=== PATIENT | female | born 1945 | race Caucasian/White ===

== ENCOUNTER 2021-03-21 13:03 | Inpatient (IN) ==
[2021-03-21] MEDS ORDERED: MORPHINE SULFATE INJ 2 MG INJ IVP ONE (14:29)
[2021-03-21] MEDS ORDERED: MORPHINE SULFATE INJ 2 MG INJ ONE (14:36)
--- NOTE | 2021-03-21 14:36 | ED.ABDFE ---
HPI Time Seen Time Seen by Provider: 03/21/21 14:24 PCP Primary Care Physician: DR BROWN HPI Comment HPI Comment: According to pt she was well before yesterday .experienced pain in the belly gradual in onset and slowly worsened to a point where its present all over the abdomen .pos nausea .has had no diarrhea or constipation has had no fever ro chills.no changes in medication or diet .no tenesmus. has had hx of diverticulitis in the past Complaint Doctors Chief Complaint Comments: abdominal pain Chief Complaint:: PT C/O CONSTANT GENERALIZED PAIN IN ABDOMEN SINCE YESTERDAY. PT STATES THAT PAIN IS WORSE WITH EATING. COVID-19 Coronavirus risk:travel/contact w/high risk person: No Has patient experienced Coronavirus symptoms: No Reviewed Nurses Notes Review: Yes Source History Provided: Patient Mode of arrival Mode of Arrival: Wheelchair Timing Onset of Chief Complaint: 03/21/21 Came on: Gradually Duration Since Onset: Constant Duration: Days Location Location: Diffuse Severity Severity: Moderate and Severe Quality Quality: Aching, Colicky and Sharp Context History of: None Modifying factors Worsening Factors: Exertion Improving Factors: Food Associated signs and symptoms Associated Signs and Symptoms: Nausea PMH PMH Past Medical History: Yes Past Medical History: Dyslipidemia and Hypertension Past Surgical History: Yes Surgical History: Hysterectomy, Ortho Surgery and Tonsillectomy Past Surgical History Comment: BREAST SURGERY X 2 Family History History of Family Medical Conditions: Yes Family Medical History: Cancer, Coronary Artery Disease and Hypertension Social History Does patient currently use any type of tobacco product: No Have you used tobacco products in the last 12 months: No Type of Tobacco Use: None Does any household member use tobacco: No Alcohol Use: Rarely Do you use any recreational Drugs:: No Lives With: Family Lives Where: Home Travel Risk Coronavirus risk:travel/contact w/high risk person: No Has patient experienced Coronavirus symptoms: No Infectious screening In the last 2 months have you had wt loss of >10#?: NO Have you had fever, night sweats or hemotysis?: No Have you traveled outside the country in the last 6 months?: No Isolation: Standard ROS Review of Systems Constitutional: No Symptoms Reported Eyes: No Symptoms Reported Respiratoy: No Symptoms Reported Cardiovascular: No Symptoms Reported Gastrointestinal/Abdominal: See HPI Genitourinary: No Symptoms Reported Neurological: No Symptoms Reported Musculoskeletal: No Symptoms Reported PE Vital Signs Vitals: Temperature 97.7 F Pulse Rate 75 Respiratory Rate 18 Blood Pressure 129/65 O2 Sat by Pulse Oximetry 96 General General Appearance: Anxious and In Distress Head Head Exam: Normal Inspection, Atraumatic and Normocephalic Eyes Eye exam: PERRL and EOMI ENT ENT Exam: Normal Oropharynx and Mucous Membranes Moist Neck Neck Exam: Full ROM Respiratory Respiratory Exam: Normal Lung Sounds Bilat Respiratory Exam: Bilateral: Clear to Auscultation Cardiovascular Cardiovascular Exam: +S1 and +S2 Abdominal Exam Abdominal Exam: Normal Bowel Sounds, Distention, Tenderness and Other (distended ) Abdominal Tenderness: Diffuse Neurologic Neurological Exam: Alert MDM Additional Information Obtained From Additional Findings:: acute abdominal pain Differential Diagnosis Differential Diagnosis- Considerations may include:: Diverticular disease, Gastroenteritis and Pancreatitis COURSE Treatment Treatment: labs and ct of the abdomen and pelvis, morphine IV ,DILAUDID spoke with surgery and Dr Cuevas .Agreed to admit under Dr Cuevas service and surgery be in consult ROR Labs Reviewed Laboratory Results Reviewed?: Yes Result Diagrams: 03/21/21 14:35 03/21/21 16:50 Laboratory: WBC 21.3 X10^3/uL (3.6-10.0) H 03/21/21 14:35 RBC 4.86 X10^6/uL (3.5-5.4) 03/21/21 14:35 Hgb 14.9 g/dL (12.0-16.0) 03/21/21 14:35 Hct 43.1 % (36.0-47.0) 03/21/21 14:35 MCV 88.7 fL (80.0-100.0) 03/21/21 14:35 MCH 30.6 pg (27.0-34.0) 03/21/21 14:35 MCHC 34.5 g/dL (33.0-35.0) 03/21/21 14:35 RDW 14.4 % (11.6-16.5) 03/21/21 14:35 Plt Count 236 X10^3/uL (150.0-450.0) 03/21/21 14:35 Plt Count Comment Adequate (ADEQUATE) 03/21/21 14:35 MPV 8.5 fL (7.4-11.0) 03/21/21 14:35 Neut % (Auto) 84.9 % (42.0-75.0) H 03/21/21 14:35 Lymph % (Auto) 8.3 % (21.0-51.0) L 03/21/21 14:35 [place] % (Auto) 6.0 % (0.0-13.0) 03/21/21 14:35 Eos % (Auto) 0.3 % (0.9-2.9) L 03/21/21 14:35 Baso % (Auto) 0.5 % (0.2-1.0) 03/21/21 14:35 Neut # (Auto) 18.1 x10^3/uL (2.2-4.8) H 03/21/21 14:35 Lymph # (Auto) 1.8 X10^3/uL (1.3-2.9) 03/21/21 14:35 [place] # (Auto) 1.3 x10^3/uL (0.3-0.8) H 03/21/21 14:35 Eos # (Auto) 0.1 x10^3/uL (0.0-0.2) 03/21/21 14:35 Baso # (Auto) 0.1 X10^3/uL (0.0-0.1) 03/21/21 14:35 Absolute Nucleated RBC 0.1 /100WBC 03/21/21 14:35 Total Counted 100 03/21/21 14:35 Neutrophils % (Manual) 78 % (39-76) H 03/21/21 14:35 Band Neutrophils % 3 % (0-10) 03/21/21 14:35 Lymphocytes % (Manual) 13 % (13-43) 03/21/21 14:35 Monocytes % (Manual) 6 % (4-9) 03/21/21 14:35 Atypical Lymphocytes Few A 03/21/21 14:35 Plt Morphology Comment Normal (NORMAL) 03/21/21 14:35 RBC Morphology Normal (NORMAL) 03/21/21 14:35 PT 14.4 SECONDS (11.8-14.3) 03/21/21 21:06 INR Target Range - 03/21/21 21:06 INR 1.17 (0.8-1.3) 03/21/21 21:06 APTT 30.3 SECONDS (22.9-36.5) 03/21/21 21:06 PTT Comment - 03/21/21 21:06 Sodium 137 mmol/L (136-145) 03/21/21 16:50 Corrected Sodium 137 mmol/L (136-145) 03/21/21 16:50 Potassium 3.4 mmol/L (3.5-5.1) L 03/21/21 16:50 Chloride 102 mmol/L (98-107) 03/21/21 16:50 Carbon Dioxide 25.7 mmol/L (21-32) 03/21/21 16:50 BUN 22 mg/dL (7-18) H 03/21/21 16:50 Creatinine 1.14 mg/dL (0.55-1.02) H 03/21/21 16:50 Est GFR (MDRD) Af Amer 60 (>60) 03/21/21 16:50 Est GFR (MDRD) Non-Af 49 (>60) L 03/21/21 16:50 Glucose 120 mg/dL (65-99) H 03/21/21 16:50 Calcium 8.9 mg/dL (8.5-10.1) 03/21/21 16:50 Corrected Calcium TNP 03/21/21 16:50 Total Bilirubin 1.10 mg/dL (0.2-1.0) H 03/21/21 16:50 AST 19 Units/L (15-37) 03/21/21 16:50 ALT 22 Units/L (12-78) 03/21/21 16:50 Alkaline Phosphatase 35 Units/L (46-116) L 03/21/21 16:50 Total Protein 6.4 g/dL (6.4-8.2) 03/21/21 16:50 Albumin 3.5 g/dL (3.4-5.0) 03/21/21 16:50 Globulin 2.9 g/dL (2.5-4.5) 03/21/21 16:50 Albumin/Globulin Ratio 1.2 Ratio (1.1-2.1) 03/21/21 16:50 Amylase 45 Units/L (25-115) 03/21/21 14:35 Lipase 59 Units/L (73-393) L 03/21/21 14:35 Other Results Comments: Ct OF ABDOMEN LOOPOF ILEUM WITH 1.3 CM CONTAINED PERFORATION Opioid Opioid Risk Tool Age (Je box if 16-45): No History of Preadolescent Sexual Abuse: No Total: 0 Total Score Risk Category: Low Risk Copyright: Eduardo HUSSEIN predicting aberrant behaviors Diagnosis Discharge Problem: Bowel perforation Leucocytosis Qualifiers: Leukocytosis type: other Qualified Code(s): D72.828 - Other elevated white blood cell count Nausea & vomiting Qualifiers: Vomiting type: unspecified Vomiting Intractability: non-intractable Qualified Code(s): R11.2 - Nausea with vomiting, unspecified Instructions Forms: [facility] Patient Portal Social Distancing
[2021-03-21 14:51] LABS: BASOPHILS # (AUTO) 0.1 X10^3/uL (0.0-0.1); BASOPHILS % (AUTO) 0.5 % (0.2-1.0); EOSINOPHILS # (AUTO) 0.1 x10^3/uL (0.0-0.2); EOSINOPHILS % (AUTO) 0.3 % (0.9-2.9); HEMATOCRIT 43.1 % (36.0-47.0); HEMOGLOBIN 14.9 g/dL (12.0-16.0); LYMPHOCYTES # (AUTO) 1.8 X10^3/uL (1.3-2.9); LYMPHOCYTES % (AUTO) 8.3 % (21.0-51.0); MEAN CORPUSCULAR HEMOGLOBIN 30.6 pg (27.0-34.0); MEAN CORPUSCULAR HGB CONC 34.5 g/dL (33.0-35.0); MEAN CORPUSCULAR VOLUME 88.7 fL (80.0-100.0); MEAN PLATELET VOLUME 8.5 fL (7.4-11.0); MONOCYTES # (AUTO) 1.3 x10^3/uL (0.3-0.8); NEUTROPHILS # (AUTO) 18.1 x10^3/uL (2.2-4.8); NEUTROPHILS % (AUTO) 84.9 % (42.0-75.0); PLATELET COUNT 236 X10^3/uL (150.0-450.0); RED BLOOD COUNT 4.86 X10^6/uL (3.5-5.4); RED CELL DISTRIBUTION WIDTH 14.4 % (11.6-16.5); WHITE BLOOD COUNT 21.3 X10^3/uL (3.6-10.0)
[2021-03-21 15:06] LABS: BAND NEUTROPHILS % 3 % (0-10); PLATELET MORPHOLOGY COMMENT NORMAL (NORMAL)
[2021-03-21 15:08] LABS: ALANINE AMINOTRANSFERASE 24 Units/L (12-78); ALBUMIN 3.9 g/dL (3.4-5.0); ALKALINE PHOSPHATASE 38 Units/L (46-116); AMYLASE 45 Units/L (25-115); ASPARTATE AMINO TRANSFERASE 22 Units/L (15-37); BLOOD UREA NITROGEN 23 mg/dL (7-18); CALCIUM 9.7 mg/dL (8.5-10.1); CHLORIDE 100 mmol/L (98-107); COR NA(FOR HYPERGLY) 137 mmol/L (136-145); CREATININE 1.36 mg/dL (0.55-1.02); LIPASE 59 Units/L (73-393); SODIUM 136 mmol/L (136-145); TOTAL PROTEIN 6.9 g/dL (6.4-8.2); eGFR NON BLACK RACES 40 (>60)
[2021-03-21] MEDS ORDERED: NS 1000 ML 1,000 ML IV ONE ×2 (15:14→19:11)
[2021-03-21] MEDS ORDERED: ZOFRAN INJ 4 MG VIAL IVP ONE ×2 (15:14→18:07)
[2021-03-21] MEDS ORDERED: DILAUDID INJ IVP ONE ×2 (15:15→18:57)
[2021-03-21] MEDS ORDERED: NS 1000 ML 1,000 ML ONE ×2 (15:15→19:12)
[2021-03-21] MEDS ORDERED: ZOFRAN INJ 4 MG VIAL ONE ×2 (15:15→18:07)
[2021-03-21] MEDS ORDERED: DILAUDID INJ ONE ×2 (15:15→18:58)
[2021-03-21 17:15] LABS: ALANINE AMINOTRANSFERASE 22 Units/L (12-78); ALBUMIN 3.5 g/dL (3.4-5.0); ALKALINE PHOSPHATASE 35 Units/L (46-116); ASPARTATE AMINO TRANSFERASE 19 Units/L (15-37); BLOOD UREA NITROGEN 22 mg/dL (7-18); CALCIUM 8.9 mg/dL (8.5-10.1); CARBON DIOXIDE 25.7 mmol/L (21-32); CHLORIDE 102 mmol/L (98-107); COR NA(FOR HYPERGLY) 137 mmol/L (136-145); CREATININE 1.14 mg/dL (0.55-1.02); SODIUM 137 mmol/L (136-145); TOTAL PROTEIN 6.4 g/dL (6.4-8.2); eGFR NON BLACK RACES 49 (>60)
--- NOTE | 2021-03-21 18:33 | CT ---
HISTORYABDOMINAL PAINSTUDYABDOMEN/PELVIS WITH CONCOMPARISONNoneTECHNIQUEMultiple axial images of the abdomen and pelvis were obtained from the lung bases to the pubic symphysis after the administration of IV contrast. Dose reduction techniques including Automated Exposure Control (AEC) and adjustment of mA and kV were utilized.FINDINGSIncluded lung bases show scattered atelectasis/scarring. Coronary artery calcifications. Liver, gallbladder, spleen, adrenal glands, pancreas, kidneys grossly unremarkable. There is wall thickening involving a loop of ileum in the right lower quadrant with small 1.3 cm likely contained perforation extending into the adjacent mesenteric fat with adjacent fat stranding. Appendix not seen. Colonic diverticulosis without overt diverticulitis. Urinary bladder collapsed. Uterus absent. Right ovary enlarged and hypoattenuating, probably cystic, 3.5 cm. Left ovary present. Small hiatal hernia. No visible lymphadenopathy or ascites. No acute osseous finding.IMPRESSIONNonspecific small bowel enteritis in the right lower quadrant with likely contained micro perforation.Nonspecific enlargement and cystic appearance of right ovary. Follow-up outpatient pelvic ultrasound recommended. Additional findings as above.Electronically signed by: Manoj Espinoza (Mar 21, 2021 18:31:14)
[2021-03-21] MEDS ORDERED: ROCEPHIN 1 GRAM IV PREMIX 1 G/50 ML IV.SOLN. IV STA (18:59)
[2021-03-21] MEDS ORDERED: FLAGYL IV PREMIX 500 MG BAG 500 MG/100 ML BAG IV ONE ×2 (18:59→19:13)
[2021-03-21] MEDS ORDERED: ROCEPHIN 1 GRAM IV PREMIX 1 G/50 ML IV.SOLN. IV ONE (19:13)
[2021-03-21] MEDS ORDERED: COMPAZINE INJ IVP ONE (20:59)
[2021-03-21] MEDS ORDERED: COMPAZINE INJ ONE (21:01)
[2021-03-21] MEDS ORDERED: NS 50 ML IV 50 ML IV ONE (21:01)
--- NOTE | 2021-03-21 22:35 | RAD ---
HISTORYBOWEL PERFORATIONSTUDYCHEST, 1 VIEWCOMPARISONNone availableTECHNIQUEChest radiographic imaging, AP portable projection, 1 imageFINDINGSNo cardiomegaly.No focal airspace disease.No pleural effusion.No pneumothorax.No acute osseous abnormality.IMPRESSIONNo imaging findings of acute cardiopulmonary disease.Electronically signed by: Juancho Morrison (Mar 21, 2021 22:33:08)
--- NOTE | 2021-03-21 23:58 | ED.ABDFE ---
HPI Time Seen Time Seen by Provider: 03/21/21 14:24 PCP Primary Care Physician: DR BROWN Complaint Chief Complaint:: PT C/O CONSTANT GENERALIZED PAIN IN ABDOMEN SINCE YESTERDAY. PT STATES THAT PAIN IS WORSE WITH EATING. COVID-19 Coronavirus risk:travel/contact w/high risk person: No Has patient experienced Coronavirus symptoms: No Source History Provided: Patient Mode of arrival Mode of Arrival: Wheelchair Timing Onset of Chief Complaint: 03/21/21 Came on: Gradually PMH PMH Past Medical History: Yes Past Medical History: Dyslipidemia and Hypertension Past Surgical History: Yes Surgical History: Hysterectomy, Ortho Surgery and Tonsillectomy Past Surgical History Comment: BREAST SURGERY X 2 Family History History of Family Medical Conditions: Yes Family Medical History: Cancer, Coronary Artery Disease and Hypertension Social History Does patient currently use any type of tobacco product: No Have you used tobacco products in the last 12 months: No Type of Tobacco Use: None Does any household member use tobacco: No Alcohol Use: Rarely Do you use any recreational Drugs:: No Lives With: Family Lives Where: Home Travel Risk Coronavirus risk:travel/contact w/high risk person: No Has patient experienced Coronavirus symptoms: No Infectious screening In the last 2 months have you had wt loss of >10#?: NO Have you had fever, night sweats or hemotysis?: No Have you traveled outside the country in the last 6 months?: No Isolation: Standard ROS Review of Systems Constitutional: No Symptoms Reported PE Vital Signs Vitals: Temperature 97.7 F Pulse Rate 75 Respiratory Rate 18 Blood Pressure 129/65 O2 Sat by Pulse Oximetry 96 ROR Labs Reviewed Result Diagrams: 03/21/21 14:35 03/21/21 16:50 Laboratory: WBC 21.3 X10^3/uL (3.6-10.0) H 03/21/21 14:35 RBC 4.86 X10^6/uL (3.5-5.4) 03/21/21 14:35 Hgb 14.9 g/dL (12.0-16.0) 03/21/21 14:35 Hct 43.1 % (36.0-47.0) 03/21/21 14:35 MCV 88.7 fL (80.0-100.0) 03/21/21 14:35 MCH 30.6 pg (27.0-34.0) 03/21/21 14:35 MCHC 34.5 g/dL (33.0-35.0) 03/21/21 14:35 RDW 14.4 % (11.6-16.5) 03/21/21 14:35 Plt Count 236 X10^3/uL (150.0-450.0) 03/21/21 14:35 Plt Count Comment Adequate (ADEQUATE) 03/21/21 14:35 MPV 8.5 fL (7.4-11.0) 03/21/21 14:35 Neut % (Auto) 84.9 % (42.0-75.0) H 03/21/21 14:35 Lymph % (Auto) 8.3 % (21.0-51.0) L 03/21/21 14:35 [place] % (Auto) 6.0 % (0.0-13.0) 03/21/21 14:35 Eos % (Auto) 0.3 % (0.9-2.9) L 03/21/21 14:35 Baso % (Auto) 0.5 % (0.2-1.0) 03/21/21 14:35 Neut # (Auto) 18.1 x10^3/uL (2.2-4.8) H 03/21/21 14:35 Lymph # (Auto) 1.8 X10^3/uL (1.3-2.9) 03/21/21 14:35 [place] # (Auto) 1.3 x10^3/uL (0.3-0.8) H 03/21/21 14:35 Eos # (Auto) 0.1 x10^3/uL (0.0-0.2) 03/21/21 14:35 Baso # (Auto) 0.1 X10^3/uL (0.0-0.1) 03/21/21 14:35 Absolute Nucleated RBC 0.1 /100WBC 03/21/21 14:35 Total Counted 100 03/21/21 14:35 Neutrophils % (Manual) 78 % (39-76) H 03/21/21 14:35 Band Neutrophils % 3 % (0-10) 03/21/21 14:35 Lymphocytes % (Manual) 13 % (13-43) 03/21/21 14:35 Monocytes % (Manual) 6 % (4-9) 03/21/21 14:35 Atypical Lymphocytes Few A 03/21/21 14:35 Plt Morphology Comment Normal (NORMAL) 03/21/21 14:35 RBC Morphology Normal (NORMAL) 03/21/21 14:35 PT 14.4 SECONDS (11.8-14.3) 03/21/21 21:06 INR Target Range - 03/21/21 21:06 INR 1.17 (0.8-1.3) 03/21/21 21:06 APTT 30.3 SECONDS (22.9-36.5) 03/21/21 21:06 PTT Comment - 03/21/21 21:06 Sodium 137 mmol/L (136-145) 03/21/21 16:50 Corrected Sodium 137 mmol/L (136-145) 03/21/21 16:50 Potassium 3.4 mmol/L (3.5-5.1) L 03/21/21 16:50 Chloride 102 mmol/L (98-107) 03/21/21 16:50 Carbon Dioxide 25.7 mmol/L (21-32) 03/21/21 16:50 BUN 22 mg/dL (7-18) H 03/21/21 16:50 Creatinine 1.14 mg/dL (0.55-1.02) H 03/21/21 16:50 Est GFR (MDRD) Af Amer 60 (>60) 03/21/21 16:50 Est GFR (MDRD) Non-Af 49 (>60) L 03/21/21 16:50 Glucose 120 mg/dL (65-99) H 03/21/21 16:50 Calcium 8.9 mg/dL (8.5-10.1) 03/21/21 16:50 Corrected Calcium TNP 03/21/21 16:50 Total Bilirubin 1.10 mg/dL (0.2-1.0) H 03/21/21 16:50 AST 19 Units/L (15-37) 03/21/21 16:50 ALT 22 Units/L (12-78) 03/21/21 16:50 Alkaline Phosphatase 35 Units/L (46-116) L 03/21/21 16:50 Total Protein 6.4 g/dL (6.4-8.2) 03/21/21 16:50 Albumin 3.5 g/dL (3.4-5.0) 03/21/21 16:50 Globulin 2.9 g/dL (2.5-4.5) 03/21/21 16:50 Albumin/Globulin Ratio 1.2 Ratio (1.1-2.1) 03/21/21 16:50 Amylase 45 Units/L (25-115) 03/21/21 14:35 Lipase 59 Units/L (73-393) L 03/21/21 14:35 SARS-CoV-2 (PCR) Negative (NEGATIVE) 03/21/21 20:50 Influenza Type A (PCR) Negative (NEGATIVE) 03/21/21 20:50 Influenza Type B (PCR) Negative (NEGATIVE) 03/21/21 20:50 RSV (PCR) Negative (NEGATIVE) 03/21/21 20:50 Opioid Opioid Risk Tool Age (Je box if 16-45): No History of Preadolescent Sexual Abuse: No Total: 0 Total Score Risk Category: Low Risk Copyright: Eduardo HUSSEIN predicting aberrant behaviors Diagnosis Discharge Problem: Bowel perforation Leucocytosis Qualifiers: Leukocytosis type: other Qualified Code(s): D72.828 - Other elevated white blood cell count Nausea & vomiting Qualifiers: Vomiting type: unspecified Vomiting Intractability: non-intractable Qualified Code(s): R11.2 - Nausea with vomiting, unspecified Instructions Forms: [facility] Patient Portal Social Distancing
[2021-03-22] MEDS: ZOSYN VIAL 3.375 GRAMS 3.375 G in NS 100 ML IV + SPIKE MINIBAG* 100 ML IV SCH ×4 (03:58→22:00)
[2021-03-22] MEDS: NS 1000 ML 1,000 ML IV SCH ×2 (03:58)
[2021-03-22] MEDS: DILAUDID INJ IVP PRN ×3 (05:00→16:45)
[2021-03-22 05:33] VITALS: BMI 26.9
[2021-03-22] MEDS: FLAGYL IV PREMIX 500 MG BAG 500 MG/100 ML BAG IV SCH ×3 (06:01→22:00)
[2021-03-22 06:24] LABS: ALANINE AMINOTRANSFERASE 20 Units/L (12-78); ALBUMIN 3.4 g/dL (3.4-5.0); ALKALINE PHOSPHATASE 34 Units/L (46-116); ASPARTATE AMINO TRANSFERASE 14 Units/L (15-37); BLOOD UREA NITROGEN 17 mg/dL (7-18); CALCIUM 8.4 mg/dL (8.5-10.1); CARBON DIOXIDE 25.9 mmol/L (21-32); CHLORIDE 101 mmol/L (98-107); COR NA(FOR HYPERGLY) 137 mmol/L (136-145); CREATININE 1.14 mg/dL (0.55-1.02); SODIUM 136 mmol/L (136-145); TOTAL PROTEIN 6.4 g/dL (6.4-8.2); eGFR NON BLACK RACES 49 (>60)
--- NOTE | 2021-03-22 08:52 | RAD ---
HISTORYPERFORATED BOWELSTUDYACUTE ABDOMEN x-ray SERIES, one view chest and two view abdomenCOMPARISONChest x-ray from previous dayFINDINGSPoor inspiration with mild atelectasis the lower lungs. No evidence of pneumonia. No pneumothorax or pleural effusion. Heart is normal in size.No free intraperitoneal air is seen. Mild colonic and small bowel air is seen without bowel dilation. No constipation is seen. Probable phleboliths are seen in the pelvis.IMPRESSIONNo evidence of bowel obstruction or perforation.Electronically signed by: Reggie Mcclain (Mar 22, 2021 08:49:56)
[2021-03-22 09:55] LABS: BASOPHILS # (AUTO) 0.1 X10^3/uL (0.0-0.1); BASOPHILS % (AUTO) 0.3 % (0.2-1.0); EOSINOPHILS % (AUTO) 0.1 % (0.9-2.9); HEMATOCRIT 37.7 % (36.0-47.0); HEMOGLOBIN 13.2 g/dL (12.0-16.0); LYMPHOCYTES # (AUTO) 1.5 X10^3/uL (1.3-2.9); LYMPHOCYTES % (AUTO) 6.9 % (21.0-51.0); MEAN CORPUSCULAR HEMOGLOBIN 30.8 pg (27.0-34.0); MEAN CORPUSCULAR HGB CONC 34.9 g/dL (33.0-35.0); MEAN CORPUSCULAR VOLUME 88.4 fL (80.0-100.0); MEAN PLATELET VOLUME 9.5 fL (7.4-11.0); MONOCYTES # (AUTO) 1.6 x10^3/uL (0.3-0.8); MONOCYTES % (AUTO) 7.2 % (0.0-13.0); NEUTROPHILS # (AUTO) 18.7 x10^3/uL (2.2-4.8); NEUTROPHILS % (AUTO) 85.5 % (42.0-75.0); PLATELET COUNT 235 X10^3/uL (150.0-450.0); RED BLOOD COUNT 4.27 X10^6/uL (3.5-5.4); RED CELL DISTRIBUTION WIDTH 14.4 % (11.6-16.5); WHITE BLOOD COUNT 21.9 X10^3/uL (3.6-10.0)
--- NOTE | 2021-03-22 10:02 | DR.PROGNOT ---
Hospital Progress Notes - Progress Note for Day of: Progress Note Date: 03/22/21 - Chief Complaint Chief Complaint: still c/o RLQ abdominal pain but less than yesterday . no nausea or vomiting . abdominal Xray showed no obstruction or free air . WBC is pending . - Past Medical Family Social History Past Med/Fam/Surg Hx: No changes since H&P Allergies: Allergies acetaminophen [From Darvocet-N] Allergy (Verified 04/03/20 09:40) propoxyphene [From Darvocet-N] Allergy (Verified 04/03/20 09:40) - Vital Signs Vital Signs: Temperature 98.7 F Pulse Rate [Left Brachial] 78 Pulse Rate 84 Respiratory Rate 18 Blood Pressure [Left Arm] 98/51 Blood Pressure 130/58 O2 Sat by Pulse Oximetry 95 - Physical Exam Oriented: Normal Ear: Normal Nose: Normal Respiratory: Normal Cardiovascular: Normal : Normal GI:Auscultation: Decreased GI: Tenderness: RLQ (soft abdomen with moderate distention , BS hypoactive . with moderate to severe RLQ ) Speech Pattern: Clear, Appropriate - Laboratory and Diagnostics Result Diagrams: 03/21/21 14:35 03/22/21 05:18 Labs: Laboratory WBC 21.3 X10^3/uL (3.6-10.0) H 03/21/21 14:35 RBC 4.86 X10^6/uL (3.5-5.4) 03/21/21 14:35 Hgb 14.9 g/dL (12.0-16.0) 03/21/21 14:35 Hct 43.1 % (36.0-47.0) 03/21/21 14:35 MCV 88.7 fL (80.0-100.0) 03/21/21 14:35 MCH 30.6 pg (27.0-34.0) 03/21/21 14:35 MCHC 34.5 g/dL (33.0-35.0) 03/21/21 14:35 RDW 14.4 % (11.6-16.5) 03/21/21 14:35 Plt Count 236 X10^3/uL (150.0-450.0) 03/21/21 14:35 Plt Count Comment Adequate (ADEQUATE) 03/21/21 14:35 MPV 8.5 fL (7.4-11.0) 03/21/21 14:35 Neut % (Auto) 84.9 % (42.0-75.0) H 03/21/21 14:35 Lymph % (Auto) 8.3 % (21.0-51.0) L 03/21/21 14:35 [place] % (Auto) 6.0 % (0.0-13.0) 03/21/21 14:35 Eos % (Auto) 0.3 % (0.9-2.9) L 03/21/21 14:35 Baso % (Auto) 0.5 % (0.2-1.0) 03/21/21 14:35 Neut # (Auto) 18.1 x10^3/uL (2.2-4.8) H 03/21/21 14:35 Lymph # (Auto) 1.8 X10^3/uL (1.3-2.9) 03/21/21 14:35 [place] # (Auto) 1.3 x10^3/uL (0.3-0.8) H 03/21/21 14:35 Eos # (Auto) 0.1 x10^3/uL (0.0-0.2) 03/21/21 14:35 Baso # (Auto) 0.1 X10^3/uL (0.0-0.1) 03/21/21 14:35 Absolute Nucleated RBC 0.1 /100WBC 03/21/21 14:35 Total Counted 100 03/21/21 14:35 Neutrophils % (Manual) 78 % (39-76) H 03/21/21 14:35 Band Neutrophils % 3 % (0-10) 03/21/21 14:35 Lymphocytes % (Manual) 13 % (13-43) 03/21/21 14:35 Monocytes % (Manual) 6 % (4-9) 03/21/21 14:35 Atypical Lymphocytes Few A 03/21/21 14:35 Plt Morphology Comment Normal (NORMAL) 03/21/21 14:35 RBC Morphology Normal (NORMAL) 03/21/21 14:35 PT 14.4 SECONDS (11.8-14.3) 03/21/21 21:06 INR Target Range - 03/21/21 21:06 INR 1.17 (0.8-1.3) 03/21/21 21:06 APTT 30.3 SECONDS (22.9-36.5) 03/21/21 21:06 PTT Comment - 03/21/21 21:06 Sodium 136 mmol/L (136-145) 03/22/21 05:18 Corrected Sodium 137 mmol/L (136-145) 03/22/21 05:18 Potassium 3.3 mmol/L (3.5-5.1) L 03/22/21 05:18 Chloride 101 mmol/L (98-107) 03/22/21 05:18 Carbon Dioxide 25.9 mmol/L (21-32) 03/22/21 05:18 BUN 17 mg/dL (7-18) 03/22/21 05:18 Creatinine 1.14 mg/dL (0.55-1.02) H 03/22/21 05:18 Est GFR (MDRD) Af Amer 60 (>60) 03/22/21 05:18 Est GFR (MDRD) Non-Af 49 (>60) L 03/22/21 05:18 Glucose 141 mg/dL (65-99) H 03/22/21 05:18 Calcium 8.4 mg/dL (8.5-10.1) L 03/22/21 05:18 Corrected Calcium TNP 03/22/21 05:18 Total Bilirubin 1.00 mg/dL (0.2-1.0) 03/22/21 05:18 AST 14 Units/L (15-37) L 03/22/21 05:18 ALT 20 Units/L (12-78) 03/22/21 05:18 Alkaline Phosphatase 34 Units/L (46-116) L 03/22/21 05:18 Total Protein 6.4 g/dL (6.4-8.2) 03/22/21 05:18 Albumin 3.4 g/dL (3.4-5.0) 03/22/21 05:18 Globulin 3.0 g/dL (2.5-4.5) 03/22/21 05:18 Albumin/Globulin Ratio 1.1 Ratio (1.1-2.1) 03/22/21 05:18 Amylase 45 Units/L (25-115) 03/21/21 14:35 Lipase 59 Units/L (73-393) L 03/21/21 14:35 SARS-CoV-2 (PCR) Negative (NEGATIVE) 03/21/21 20:50 Influenza Type A (PCR) Negative (NEGATIVE) 03/21/21 20:50 Influenza Type B (PCR) Negative (NEGATIVE) 03/21/21 20:50 RSV (PCR) Negative (NEGATIVE) 03/21/21 20:50 - Assessment and Plan 1: acute abdominal pain . diverticulitis VS appendicitis , IBD . same NPO , IVF and ATB , close obsdervation . - Problem Patient Problems: Patient Problems Bowel perforation (Acute) K63.1 Leucocytosis (Acute) D72.829 Nausea & vomiting (Acute) R11.2
[2021-03-22 10:58] LABS: BASOPHILS % (MANUAL) 1 % (0-1)
[2021-03-22 10:59] LABS: PLATELET MORPHOLOGY COMMENT NORMAL (NORMAL)
[2021-03-22] MEDS ORDERED: STERILE WATER IRRIGATION IR ONE (11:02)
[2021-03-22] MEDS ORDERED: DECADRON INJ ONE ×2 (12:48→13:20)
[2021-03-22] MEDS ORDERED: ZOSYN VIAL 3.375 GRAMS IV ONE (12:48)
[2021-03-22] MEDS ORDERED: NS 100 ML IV + SPIKE MINIBAG* 100 ML IV ONE (12:48)
[2021-03-22] MEDS ORDERED: BRIDION ONE ×2 (12:49→13:20)
[2021-03-22] MEDS ORDERED: FENTANYL VIAL INJ 100 mcg ONE (12:49)
[2021-03-22] MEDS ORDERED: OFIRMEV IV 1000 MG VIAL 1,000 MG/100 ML VIAL IV ONE (12:49)
[2021-03-22] MEDS ORDERED: NS 1000 ML 1,000 ML ONE (12:49)
[2021-03-22] MEDS ORDERED: ZEMURON 50 MG VIAL ONE ×2 (12:50→13:20)
[2021-03-22] MEDS ORDERED: LR 1000 ML IV 1,000 ML IV ONE (12:58)
[2021-03-22] MEDS ORDERED: EPHEDRINE SULFATE INJ ONE (13:20)
[2021-03-22] MEDS ORDERED: ULTANE GAS IN ONE (13:20)
[2021-03-22] MEDS ORDERED: VERSED ONE (13:20)
[2021-03-22] MEDS ORDERED: TORADOL 30 MG VIAL ONE (13:20)
[2021-03-22] MEDS ORDERED: DIPRIVAN VIAL ONE (13:20)
[2021-03-22] MEDS ORDERED: ZOFRAN INJ 4 MG VIAL ONE (13:20)
[2021-03-22] MEDS ORDERED: BACITRACIN VIAL ONE (13:48)
[2021-03-22] MEDS ORDERED: BETADINE SOLN ONE (14:51)
[2021-03-22] MEDS ORDERED: REGLAN INJ 10 MG VIAL IVP PRN (15:29)
[2021-03-22] MEDS ORDERED: BENADRYL INJ 50 MG VIAL IVP PRN (15:29)
[2021-03-22] MEDS ORDERED: BARHEMSYS INJ IVP PRN (15:29)
[2021-03-22] MEDS ORDERED: DILAUDID INJ IVP PRN (15:29)
[2021-03-22] MEDS ORDERED: ZOFRAN INJ 4 MG VIAL IVP PRN (15:29)
[2021-03-22] MEDS ORDERED: PHENERGAN INJ 25 MG IM PRN (15:29)
[2021-03-22 16:11] LABS: BASOPHILS # (AUTO) 0.2 X10^3/uL (0.0-0.1); BASOPHILS % (AUTO) 0.9 % (0.2-1.0); EOSINOPHILS % (AUTO) 0.1 % (0.9-2.9); HEMOGLOBIN 13.5 g/dL (12.0-16.0); LYMPHOCYTES # (AUTO) 0.6 X10^3/uL (1.3-2.9); LYMPHOCYTES % (AUTO) 3.2 % (21.0-51.0); MEAN CORPUSCULAR HEMOGLOBIN 30.8 pg (27.0-34.0); MEAN CORPUSCULAR HGB CONC 34.7 g/dL (33.0-35.0); MEAN CORPUSCULAR VOLUME 88.9 fL (80.0-100.0); MEAN PLATELET VOLUME 8.4 fL (7.4-11.0); MONOCYTES # (AUTO) 0.5 x10^3/uL (0.3-0.8); MONOCYTES % (AUTO) 2.7 % (0.0-13.0); NEUTROPHILS # (AUTO) 18.4 x10^3/uL (2.2-4.8); NEUTROPHILS % (AUTO) 93.1 % (42.0-75.0); PLATELET COUNT 207 X10^3/uL (150.0-450.0); RED BLOOD COUNT 4.38 X10^6/uL (3.5-5.4); RED CELL DISTRIBUTION WIDTH 14.2 % (11.6-16.5); WHITE BLOOD COUNT 19.8 X10^3/uL (3.6-10.0)
[2021-03-22 16:28] LABS: ALBUMIN 3.3 g/dL (3.4-5.0); CALCIUM 8.1 mg/dL (8.5-10.1); CARBON DIOXIDE 25.1 mmol/L (21-32); COR CA(FOR HYPOALB) 8.7 mg/dL (8.5-10.1); CREATININE 1.4 mg/dL (0.55-1.02); TOTAL PROTEIN 6.5 g/dL (6.4-8.2)
[2021-03-22] MEDS: D5 1/2 NS 1000 ML 1,000 ML IV SCH (16:29)
[2021-03-22 16:47] LABS: BAND NEUTROPHILS % 3 % (0-10)
[2021-03-22 16:48] LABS: PLATELET MORPHOLOGY COMMENT NORMAL (NORMAL)
[2021-03-23] MEDS: D5 1/2 NS 1000 ML 1,000 ML IV SCH ×3 (00:32→16:07)
[2021-03-23] MEDS: DILAUDID INJ IVP PRN ×3 (00:38→21:00)
[2021-03-23] MEDS: ZOFRAN INJ 4 MG VIAL IVP PRN ×3 (00:39→22:35)
[2021-03-23] MEDS ORDERED: NS 100 ML IV + SPIKE MINIBAG* 100 ML IV ONE (05:15)
[2021-03-23] MEDS ORDERED: ZOSYN VIAL 3.375 GRAMS IV ONE (05:15)
[2021-03-23 05:32] LABS: BASOPHILS # (AUTO) 0.1 X10^3/uL (0.0-0.1); BASOPHILS % (AUTO) 0.3 % (0.2-1.0); HEMATOCRIT 33.6 % (36.0-47.0); HEMOGLOBIN 11.8 g/dL (12.0-16.0); LYMPHOCYTES # (AUTO) 1.1 X10^3/uL (1.3-2.9); LYMPHOCYTES % (AUTO) 5.3 % (21.0-51.0); MEAN CORPUSCULAR HEMOGLOBIN 31.1 pg (27.0-34.0); MEAN CORPUSCULAR HGB CONC 35.1 g/dL (33.0-35.0); MEAN CORPUSCULAR VOLUME 88.6 fL (80.0-100.0); MONOCYTES # (AUTO) 1.2 x10^3/uL (0.3-0.8); MONOCYTES % (AUTO) 5.9 % (0.0-13.0); NEUTROPHILS # (AUTO) 18.1 x10^3/uL (2.2-4.8); NEUTROPHILS % (AUTO) 88.5 % (42.0-75.0); PLATELET COUNT 209 X10^3/uL (150.0-450.0); RED BLOOD COUNT 3.79 X10^6/uL (3.5-5.4); RED CELL DISTRIBUTION WIDTH 14.4 % (11.6-16.5); WHITE BLOOD COUNT 20.5 X10^3/uL (3.6-10.0)
[2021-03-23 05:41] LABS: ALBUMIN 2.9 g/dL (3.4-5.0); CALCIUM 7.5 mg/dL (8.5-10.1); CARBON DIOXIDE 27.6 mmol/L (21-32); COR CA(FOR HYPOALB) 8.4 mg/dL (8.5-10.1); CREATININE 1.93 mg/dL (0.55-1.02); TOTAL PROTEIN 6.1 g/dL (6.4-8.2)
[2021-03-23] MEDS: ZOSYN VIAL 3.375 GRAMS 3.375 G in NS 100 ML IV + SPIKE MINIBAG* 100 ML IV SCH (05:45)
[2021-03-23] MEDS: FLAGYL IV PREMIX 500 MG BAG 500 MG/100 ML BAG IV SCH ×3 (05:45→21:00)
[2021-03-23] MEDS: PROTONIX INJ 40 MG VIAL IVP SCH (09:48)
[2021-03-23] MEDS: LOVENOX INJ 40 MG SYR SC SCH (09:48)
--- NOTE | 2021-03-23 10:32 | PCM.PROG ---
Progress Note - Progress Note for Day of Date of Exam: 03/23/21 - Subjective Subjective: WAS ADMITTED YESTERDAY DUE TO BOWEL PERFORATION, LEUKOCYTOSIS, ABDOMINAL PAIN. SHE HAS ALSO HAD NAUSEA AND VOMITING. HER SYMPTOMS STARTED ON 03/21. HER PMH INCLUDES DYSLIPIDEMIA, HTN, HYSTERECTOMY, TONSILLECTOMY. SHE WAS TAKEN TO THE OPERATING ROOM BY YESTERDAY FOR EXPLORATORY LAPAROTOMY. EXPLORATORY LAPAROTOMY REVEALED LOCALIZED PERFORATION OF THE SMALL BOWEL OF THE DISTAL JEJUNUM WITH LOCALIZED INFLAMMATORY REACTION AND PERITONITIS. DIVERTICULOSIS WITHOUT DIVERTICULITIS. 15CM OF SMALL BOWEL WAS RESECTED. TODAY, SHE IS ALERT AND ORIENTED, LYING IN BED ON MORNING ROUNDS. SHE CONTINUES WITH COMPLAINTS OF DIFFUSE ABDOMINAL PAIN. TENDERNESS IS WORSE TO THE RLQ. THERE IS AN NG TUBE NOTED TO THE LEFT NARE, AT LOW INTERMITTENT SUCTION. HEART IS REGULAR IN RATE AND RHYTHM. BILATERAL LUNGS NOTED TO HAVE DIMINISHED LUNG SOUNDS THROUGHOUT. ABDOMEN IS ROUND, SOFT, DIFFUSE TENDERNESS NOTED. HYPOACTIVE BOWEL SOUNDS NOTED. CASTRO CATHETER IS NOTED TO BEDSIDE DRAINAGE. HER VITALS THIS MORNING ARE: 97.9-67-20-99%-105/53. LABS WERE OBTAINED. ABNORMAL LAB VALUES INCLUDE THE FOLLOWING: WBC 20.5, HGB 11.8, HCT 33.6, SODIUM 134, POTASSIUM 3.4, BUN 23, CREATININE 1.93, GLUCOSE 185, CALCIUM 7.5, ALK PHOS 31, TOTAL PROTEIN 6.1, ALBUMIN 2.9. SHE IS CURRENTLY RECEIVING D51/2 NS AT 150ML/HR, FLAGYL 500MG IV Q8H, ZOSYN 3.375G IV TID, LOVENOX 40MG SC DAILY, DILAUDID 2MG IV Q4H PRN, AND ZOFRAN 4MG IV Q8H PRN. WE WILL CONTINUE WITH CURRENT PLAN OF CARE TODAY. WILL CONTINUE TO FOLLOW PATIENT WELL. OTHERWISE, WE PLAN TO FOLLOW UP WITH AM LABS AND CONTINUE TO MONITOR. TIME SPENT ON CLINICAL ASSESSMENT, REVIEWING LABS AND IMAGING, DECISION MAKING, AND DOCUMENTATION GRE ATER THAN 45 MINUTES. - Past Medical Family Social History Past Med/Fam/Surg Hx: No changes since H&P Allergies: Allergies acetaminophen [From Darvocet-N] Allergy (Verified 04/03/20 09:40) propoxyphene [From Darvocet-N] Allergy (Verified 04/03/20 09:40) - Vital Signs and I&O's Vital Signs: Temperature 97.9 F Pulse Rate [Left Brachial] 67 Pulse Rate 101 Respiratory Rate 20 Blood Pressure [Left Arm] 105/53 Blood Pressure 135/67 O2 Sat by Pulse Oximetry 99 Intake and Output: Intake & Output 03/20/21 03/21/21 03/22/21 03/23/21 11:59 11:59 11:59 11:59 Intake Total 715 / 715 5097 / 5097 Output Total 2412 / 2412 Balance 715 / 715 2685 / 2685 - Physical Exam Oriented: Normal Eyes: Normal Ear: Normal Nose: Normal Respiratory: Normal Cardiovascular: Normal : Normal Auscultation: Bowel Sounds: Decreased Palpation: Normal Tenderness: RLQ (soft abdomen with moderate distention , BS hypoactive . with moderate to severe RLQ ) Skin: Normal Musculoskeletal: Normal Psychiatric: Normal Mood Description: Calm Speech Pattern: Clear - Laboratory and Diagnostics Result Diagrams: 03/23/21 04:45 03/23/21 04:45 Labs: 03/22/21 13:50 Abdomen Wound Gram Stain - Final Laboratory WBC 20.5 X10^3/uL (3.6-10.0) H 03/23/21 04:45 RBC 3.79 X10^6/uL (3.5-5.4) 03/23/21 04:45 Hgb 11.8 g/dL (12.0-16.0) L 03/23/21 04:45 Hct 33.6 % (36.0-47.0) L 03/23/21 04:45 MCV 88.6 fL (80.0-100.0) 03/23/21 04:45 MCH 31.1 pg (27.0-34.0) 03/23/21 04:45 MCHC 35.1 g/dL (33.0-35.0) H 03/23/21 04:45 RDW 14.4 % (11.6-16.5) 03/23/21 04:45 Plt Count 209 X10^3/uL (150.0-450.0) 03/23/21 04:45 Plt Count Comment Adequate (ADEQUATE) 03/22/21 16:04 MPV 9.0 fL (7.4-11.0) 03/23/21 04:45 Neut % (Auto) 88.5 % (42.0-75.0) H 03/23/21 04:45 Lymph % (Auto) 5.3 % (21.0-51.0) L 03/23/21 04:45 [place] % (Auto) 5.9 % (0.0-13.0) 03/23/21 04:45 Eos % (Auto) 0.0 % (0.9-2.9) L 03/23/21 04:45 Baso % (Auto) 0.3 % (0.2-1.0) 03/23/21 04:45 Neut # (Auto) 18.1 x10^3/uL (2.2-4.8) H 03/23/21 04:45 Lymph # (Auto) 1.1 X10^3/uL (1.3-2.9) L 03/23/21 04:45 [place] # (Auto) 1.2 x10^3/uL (0.3-0.8) H 03/23/21 04:45 Eos # (Auto) 0.0 x10^3/uL (0.0-0.2) 03/23/21 04:45 Baso # (Auto) 0.1 X10^3/uL (0.0-0.1) 03/23/21 04:45 Absolute Nucleated RBC 0.0 /100WBC 03/23/21 04:45 Total Counted 100 03/22/21 16:04 Neutrophils % (Manual) 86 % (39-76) H 03/22/21 16:04 Band Neutrophils % 3 % (0-10) 03/22/21 16:04 Lymphocytes % (Manual) 8 % (13-43) L 03/22/21 16:04 Monocytes % (Manual) 3 % (4-9) L 03/22/21 16:04 Basophils % (Manual) 1 % (0-1) 03/22/21 05:18 Atypical Lymphocytes Few A 03/21/21 14:35 Plt Morphology Comment Normal (NORMAL) 03/22/21 16:04 RBC Morphology Normal (NORMAL) 03/22/21 16:04 PT 14.4 SECONDS (11.8-14.3) 03/21/21 21:06 INR Target Range - 03/21/21 21:06 INR 1.17 (0.8-1.3) 03/21/21 21:06 APTT 30.3 SECONDS (22.9-36.5) 03/21/21 21:06 PTT Comment - 03/21/21 21:06 Sodium 134 mmol/L (136-145) L 03/23/21 04:45 Corrected Sodium 136 mmol/L (136-145) 03/23/21 04:45 Potassium 3.4 mmol/L (3.5-5.1) L 03/23/21 04:45 Chloride 100 mmol/L (98-107) 03/23/21 04:45 Carbon Dioxide 27.6 mmol/L (21-32) 03/23/21 04:45 BUN 23 mg/dL (7-18) H 03/23/21 04:45 Creatinine 1.93 mg/dL (0.55-1.02) H 03/23/21 04:45 Est GFR (MDRD) Af Amer 33 (>60) L 03/23/21 04:45 Est GFR (MDRD) Non-Af 27 (>60) L 03/23/21 04:45 Glucose 185 mg/dL (65-99) H 03/23/21 04:45 Calcium 7.5 mg/dL (8.5-10.1) L 03/23/21 04:45 Corrected Calcium 8.4 mg/dL (8.5-10.1) L 03/23/21 04:45 Total Bilirubin 0.90 mg/dL (0.2-1.0) 03/23/21 04:45 AST 17 Units/L (15-37) 03/23/21 04:45 ALT 15 Units/L (12-78) 03/23/21 04:45 Alkaline Phosphatase 31 Units/L (46-116) L 03/23/21 04:45 Total Protein 6.1 g/dL (6.4-8.2) L 03/23/21 04:45 Albumin 2.9 g/dL (3.4-5.0) L 03/23/21 04:45 Globulin 3.2 g/dL (2.5-4.5) 03/23/21 04:45 Albumin/Globulin Ratio 0.9 Ratio (1.1-2.1) L 03/23/21 04:45 Amylase 45 Units/L (25-115) 03/21/21 14:35 Lipase 59 Units/L (73-393) L 03/21/21 14:35 SARS-CoV-2 (PCR) Negative (NEGATIVE) 03/21/21 20:50 Influenza Type A (PCR) Negative (NEGATIVE) 03/21/21 20:50 Influenza Type B (PCR) Negative (NEGATIVE) 03/21/21 20:50 RSV (PCR) Negative (NEGATIVE) 03/21/21 20:50 Tissue Pathology To follow 03/22/21 14:10
[2021-03-23] MEDS ORDERED: LASIX IVP ONE (10:37)
--- NOTE | 2021-03-23 10:41 | DR.PROGNOT ---
Hospital Progress Notes - Progress Note for Day of: Progress Note Date: 03/23/21 - Chief Complaint Chief Complaint: Post op day 1. s/p laparotomy and small bowel resection for ferforated small bowel .. urine out put is poor . Pt is feeling better today . - Past Medical Family Social History Past Med/Fam/Surg Hx: No changes since H&P Allergies: Allergies acetaminophen [From Darvocet-N] Allergy (Verified 04/03/20 09:40) propoxyphene [From Darvocet-N] Allergy (Verified 04/03/20 09:40) - Review Of Systems ROS: No change since H&P - Vital Signs Vital Signs: Temperature 97.9 F Pulse Rate [Left Brachial] 67 Pulse Rate 101 Respiratory Rate 20 Blood Pressure [Left Arm] 105/53 Blood Pressure 135/67 O2 Sat by Pulse Oximetry 99 - Physical Exam Oriented: Normal Eyes: Normal Ear: Normal Nose: Normal Respiratory: Normal (clear lung ) Cardiovascular: Normal : Normal GI:Auscultation: Decreased GI:Palpation: Normal GI: Tenderness: Diffuse (soft abdomen with diffuse tenderness . BS+ but hypoactive ), RLQ (soft abdomen with moderate distention , BS hypoactive . with moderate to severe RLQ ) Skin: Normal Musculoskeletal: Normal Psychiatric: Normal Mood Description: Calm Speech Pattern: Clear - Laboratory and Diagnostics Result Diagrams: 03/23/21 04:45 03/23/21 04:45 Labs: 03/22/21 13:50 Abdomen Wound Gram Stain - Final Laboratory WBC 20.5 X10^3/uL (3.6-10.0) H 03/23/21 04:45 RBC 3.79 X10^6/uL (3.5-5.4) 03/23/21 04:45 Hgb 11.8 g/dL (12.0-16.0) L 03/23/21 04:45 Hct 33.6 % (36.0-47.0) L 03/23/21 04:45 MCV 88.6 fL (80.0-100.0) 03/23/21 04:45 MCH 31.1 pg (27.0-34.0) 03/23/21 04:45 MCHC 35.1 g/dL (33.0-35.0) H 03/23/21 04:45 RDW 14.4 % (11.6-16.5) 03/23/21 04:45 Plt Count 209 X10^3/uL (150.0-450.0) 03/23/21 04:45 Plt Count Comment Adequate (ADEQUATE) 03/22/21 16:04 MPV 9.0 fL (7.4-11.0) 03/23/21 04:45 Neut % (Auto) 88.5 % (42.0-75.0) H 03/23/21 04:45 Lymph % (Auto) 5.3 % (21.0-51.0) L 03/23/21 04:45 [place] % (Auto) 5.9 % (0.0-13.0) 03/23/21 04:45 Eos % (Auto) 0.0 % (0.9-2.9) L 03/23/21 04:45 Baso % (Auto) 0.3 % (0.2-1.0) 03/23/21 04:45 Neut # (Auto) 18.1 x10^3/uL (2.2-4.8) H 03/23/21 04:45 Lymph # (Auto) 1.1 X10^3/uL (1.3-2.9) L 03/23/21 04:45 [place] # (Auto) 1.2 x10^3/uL (0.3-0.8) H 03/23/21 04:45 Eos # (Auto) 0.0 x10^3/uL (0.0-0.2) 03/23/21 04:45 Baso # (Auto) 0.1 X10^3/uL (0.0-0.1) 03/23/21 04:45 Absolute Nucleated RBC 0.0 /100WBC 03/23/21 04:45 Total Counted 100 03/22/21 16:04 Neutrophils % (Manual) 86 % (39-76) H 03/22/21 16:04 Band Neutrophils % 3 % (0-10) 03/22/21 16:04 Lymphocytes % (Manual) 8 % (13-43) L 03/22/21 16:04 Monocytes % (Manual) 3 % (4-9) L 03/22/21 16:04 Basophils % (Manual) 1 % (0-1) 03/22/21 05:18 Atypical Lymphocytes Few A 03/21/21 14:35 Plt Morphology Comment Normal (NORMAL) 03/22/21 16:04 RBC Morphology Normal (NORMAL) 03/22/21 16:04 PT 14.4 SECONDS (11.8-14.3) 03/21/21 21:06 INR Target Range - 03/21/21 21:06 INR 1.17 (0.8-1.3) 03/21/21 21:06 APTT 30.3 SECONDS (22.9-36.5) 03/21/21 21:06 PTT Comment - 03/21/21 21:06 Sodium 134 mmol/L (136-145) L 03/23/21 04:45 Corrected Sodium 136 mmol/L (136-145) 03/23/21 04:45 Potassium 3.4 mmol/L (3.5-5.1) L 03/23/21 04:45 Chloride 100 mmol/L (98-107) 03/23/21 04:45 Carbon Dioxide 27.6 mmol/L (21-32) 03/23/21 04:45 BUN 23 mg/dL (7-18) H 03/23/21 04:45 Creatinine 1.93 mg/dL (0.55-1.02) H 03/23/21 04:45 Est GFR (MDRD) Af Amer 33 (>60) L 03/23/21 04:45 Est GFR (MDRD) Non-Af 27 (>60) L 03/23/21 04:45 Glucose 185 mg/dL (65-99) H 03/23/21 04:45 Calcium 7.5 mg/dL (8.5-10.1) L 03/23/21 04:45 Corrected Calcium 8.4 mg/dL (8.5-10.1) L 03/23/21 04:45 Total Bilirubin 0.90 mg/dL (0.2-1.0) 03/23/21 04:45 AST 17 Units/L (15-37) 03/23/21 04:45 ALT 15 Units/L (12-78) 03/23/21 04:45 Alkaline Phosphatase 31 Units/L (46-116) L 03/23/21 04:45 Total Protein 6.1 g/dL (6.4-8.2) L 03/23/21 04:45 Albumin 2.9 g/dL (3.4-5.0) L 03/23/21 04:45 Globulin 3.2 g/dL (2.5-4.5) 03/23/21 04:45 Albumin/Globulin Ratio 0.9 Ratio (1.1-2.1) L 03/23/21 04:45 Amylase 45 Units/L (25-115) 03/21/21 14:35 Lipase 59 Units/L (73-393) L 03/21/21 14:35 SARS-CoV-2 (PCR) Negative (NEGATIVE) 03/21/21 20:50 Influenza Type A (PCR) Negative (NEGATIVE) 03/21/21 20:50 Influenza Type B (PCR) Negative (NEGATIVE) 03/21/21 20:50 RSV (PCR) Negative (NEGATIVE) 03/21/21 20:50 Tissue Pathology To follow 03/22/21 14:10 - Assessment and Plan 1: perforated small bowel with localized peritonitis . s/p laparotomy and bowel resection . same PO care . d/c ngt . only water today . - Problem Patient Problems: Patient Problems Bowel perforation (Acute) K63.1 Leucocytosis (Acute) D72.829 Nausea & vomiting (Acute) R11.2
[2021-03-23] MEDS: ZOSYN VIAL 3.375 GRAMS 3.375 G in NS 50 ML IV + SPIKE MINIBAG* 50 ML IV SCH ×2 (15:03→21:00)
[2021-03-23] MEDS ORDERED: TYLENOL 325 MG TAB PO PRN (17:10)
[2021-03-24] MEDS ORDERED: D5W 1000 ML IV 1,000 ML IV ONE (00:03)
[2021-03-24] MEDS: D5 1/2 NS 1000 ML 1,000 ML IV SCH (01:03)
[2021-03-24] MEDS: ZOSYN VIAL 3.375 GRAMS 3.375 G in NS 50 ML IV + SPIKE MINIBAG* 50 ML IV SCH ×3 (05:57→21:00)
[2021-03-24] MEDS: FLAGYL IV PREMIX 500 MG BAG 500 MG/100 ML BAG IV SCH ×3 (05:57→21:00)
[2021-03-24 06:46] LABS: BASOPHILS % (AUTO) 0.3 % (0.2-1.0); EOSINOPHILS # (AUTO) 0.1 x10^3/uL (0.0-0.2); EOSINOPHILS % (AUTO) 0.7 % (0.9-2.9); HEMATOCRIT 31.8 % (36.0-47.0); HEMOGLOBIN 11.3 g/dL (12.0-16.0); MEAN CORPUSCULAR HGB CONC 35.5 g/dL (33.0-35.0); MEAN CORPUSCULAR VOLUME 87.3 fL (80.0-100.0); MONOCYTES # (AUTO) 0.9 x10^3/uL (0.3-0.8); MONOCYTES % (AUTO) 6.8 % (0.0-13.0); NEUTROPHILS # (AUTO) 10.7 x10^3/uL (2.2-4.8); NEUTROPHILS % (AUTO) 84.2 % (42.0-75.0); PLATELET COUNT 204 X10^3/uL (150.0-450.0); RED BLOOD COUNT 3.64 X10^6/uL (3.5-5.4); RED CELL DISTRIBUTION WIDTH 14.2 % (11.6-16.5); WHITE BLOOD COUNT 12.8 X10^3/uL (3.6-10.0)
[2021-03-24 07:02] LABS: ALBUMIN 2.8 g/dL (3.4-5.0); CALCIUM 7.4 mg/dL (8.5-10.1); CARBON DIOXIDE 29.5 mmol/L (21-32); COR CA(FOR HYPOALB) 8.4 mg/dL (8.5-10.1); CREATININE 1.72 mg/dL (0.55-1.02); TOTAL PROTEIN 5.9 g/dL (6.4-8.2)
[2021-03-24] MEDS ORDERED: ZOFRAN INJ 4 MG VIAL IVP PRN (07:42)
[2021-03-24] MEDS ORDERED: OFIRMEV IV 1000 MG VIAL 1,000 MG/100 ML VIAL IV PRN (07:42)
[2021-03-24] MEDS ORDERED: D5 IV ONE ×2 (08:00)
[2021-03-24] MEDS ORDERED: 1/2 NS IV ONE ×2 (08:00)
[2021-03-24] MEDS ORDERED: KCL IV ONE ×2 (08:00)
[2021-03-24] MEDS ORDERED: POTASSIUM CHLORIDE IV ONE ×2 (08:00)
[2021-03-24] MEDS: PHENERGAN INJ 25 MG IM PRN ×2 (08:03→17:33)
[2021-03-24] MEDS: DILAUDID INJ IVP PRN ×4 (09:23→23:45)
--- NOTE | 2021-03-24 09:40 | DR.PROGNOT ---
Hospital Progress Notes - Progress Note for Day of: Progress Note Date: 03/24/21 - Chief Complaint Chief Complaint: Post op day 2. s/p laparotomy and small bowel resection for ferforated small bowel .. c/o headache and vausea .no vomiting ,. WBC 12.8. K 2.7. temp 98 - Past Medical Family Social History Past Med/Fam/Surg Hx: No changes since H&P Allergies: Allergies acetaminophen [From Darvocet-N] Allergy (Verified 04/03/20 09:40) propoxyphene [From Darvocet-N] Allergy (Verified 04/03/20 09:40) - Review Of Systems ROS: No change since H&P - Vital Signs Vital Signs: Temperature 97.9 F Pulse Rate [Left Brachial] 74 Pulse Rate 101 Respiratory Rate 16 Blood Pressure [Left Arm] 129/59 Blood Pressure 135/67 O2 Sat by Pulse Oximetry 98 - Physical Exam Oriented: Normal Eyes: Normal Ear: Normal Nose: Normal Respiratory: Normal (clear lung ) Cardiovascular: Normal : Normal GI:Auscultation: Decreased GI:Palpation: Normal GI: Tenderness: Diffuse (soft abdomen with diffuse tenderness . BS+ but hypoactive ), RLQ (soft abdomen with moderate distention , BS hypoactive . with moderate to severe RLQ ) Skin: Normal Musculoskeletal: Normal Psychiatric: Normal Mood Description: Calm Speech Pattern: Clear - Laboratory and Diagnostics Result Diagrams: 03/24/21 05:50 03/24/21 05:50 Labs: 03/22/21 13:50 Abdomen Wound Gram Stain - Final 03/22/21 13:50 Abdomen Wound Culture - Preliminary Laboratory WBC 12.8 X10^3/uL (3.6-10.0) H 03/24/21 05:50 RBC 3.64 X10^6/uL (3.5-5.4) 03/24/21 05:50 Hgb 11.3 g/dL (12.0-16.0) L 03/24/21 05:50 Hct 31.8 % (36.0-47.0) L 03/24/21 05:50 MCV 87.3 fL (80.0-100.0) 03/24/21 05:50 MCH 31.0 pg (27.0-34.0) 03/24/21 05:50 MCHC 35.5 g/dL (33.0-35.0) H 03/24/21 05:50 RDW 14.2 % (11.6-16.5) 03/24/21 05:50 Plt Count 204 X10^3/uL (150.0-450.0) 03/24/21 05:50 Plt Count Comment Adequate (ADEQUATE) 03/22/21 16:04 MPV 9.0 fL (7.4-11.0) 03/24/21 05:50 Neut % (Auto) 84.2 % (42.0-75.0) H 03/24/21 05:50 Lymph % (Auto) 8.0 % (21.0-51.0) L 03/24/21 05:50 [place] % (Auto) 6.8 % (0.0-13.0) 03/24/21 05:50 Eos % (Auto) 0.7 % (0.9-2.9) L 03/24/21 05:50 Baso % (Auto) 0.3 % (0.2-1.0) 03/24/21 05:50 Neut # (Auto) 10.7 x10^3/uL (2.2-4.8) H 03/24/21 05:50 Lymph # (Auto) 1.0 X10^3/uL (1.3-2.9) L 03/24/21 05:50 [place] # (Auto) 0.9 x10^3/uL (0.3-0.8) H 03/24/21 05:50 Eos # (Auto) 0.1 x10^3/uL (0.0-0.2) 03/24/21 05:50 Baso # (Auto) 0.0 X10^3/uL (0.0-0.1) 03/24/21 05:50 Absolute Nucleated RBC 0.1 /100WBC 03/24/21 05:50 Total Counted 100 03/22/21 16:04 Neutrophils % (Manual) 86 % (39-76) H 03/22/21 16:04 Band Neutrophils % 3 % (0-10) 03/22/21 16:04 Lymphocytes % (Manual) 8 % (13-43) L 03/22/21 16:04 Monocytes % (Manual) 3 % (4-9) L 03/22/21 16:04 Basophils % (Manual) 1 % (0-1) 03/22/21 05:18 Atypical Lymphocytes Few A 03/21/21 14:35 Plt Morphology Comment Normal (NORMAL) 03/22/21 16:04 RBC Morphology Normal (NORMAL) 03/22/21 16:04 PT 14.4 SECONDS (11.8-14.3) 03/21/21 21:06 INR Target Range - 03/21/21 21:06 INR 1.17 (0.8-1.3) 03/21/21 21:06 APTT 30.3 SECONDS (22.9-36.5) 03/21/21 21:06 PTT Comment - 03/21/21 21:06 Sodium 133 mmol/L (136-145) L 03/24/21 05:50 Corrected Sodium 134 mmol/L (136-145) L 03/24/21 05:50 Potassium 2.7 mmol/L (3.5-5.1) L* 03/24/21 05:50 Chloride 97 mmol/L (98-107) L 03/24/21 05:50 Carbon Dioxide 29.5 mmol/L (21-32) 03/24/21 05:50 BUN 21 mg/dL (7-18) H 03/24/21 05:50 Creatinine 1.72 mg/dL (0.55-1.02) H 03/24/21 05:50 Est GFR (MDRD) Af Amer 37 (>60) L 03/24/21 05:50 Est GFR (MDRD) Non-Af 31 (>60) L 03/24/21 05:50 Glucose 151 mg/dL (65-99) H 03/24/21 05:50 Calcium 7.4 mg/dL (8.5-10.1) L 03/24/21 05:50 Corrected Calcium 8.4 mg/dL (8.5-10.1) L 03/24/21 05:50 Total Bilirubin 0.70 mg/dL (0.2-1.0) 03/24/21 05:50 AST 20 Units/L (15-37) 03/24/21 05:50 ALT 17 Units/L (12-78) 03/24/21 05:50 Alkaline Phosphatase 30 Units/L (46-116) L 03/24/21 05:50 Total Protein 5.9 g/dL (6.4-8.2) L 03/24/21 05:50 Albumin 2.8 g/dL (3.4-5.0) L 03/24/21 05:50 Globulin 3.1 g/dL (2.5-4.5) 03/24/21 05:50 Albumin/Globulin Ratio 0.9 Ratio (1.1-2.1) L 03/24/21 05:50 Amylase 45 Units/L (25-115) 03/21/21 14:35 Lipase 59 Units/L (73-393) L 03/21/21 14:35 SARS-CoV-2 (PCR) Negative (NEGATIVE) 03/21/21 20:50 Influenza Type A (PCR) Negative (NEGATIVE) 03/21/21 20:50 Influenza Type B (PCR) Negative (NEGATIVE) 03/21/21 20:50 RSV (PCR) Negative (NEGATIVE) 03/21/21 20:50 Tissue Pathology To follow 03/22/21 14:10 - Assessment and Plan 1: perforated small bowel with localized peritonitis . s/p laparotomy and bowel resection . same PO care . on full liquid , OOB , K supplement and same PO care - Problem Patient Problems: Patient Problems Bowel perforation (Acute) K63.1 Leucocytosis (Acute) D72.829 Nausea & vomiting (Acute) R11.2
[2021-03-24] MEDS: PROTONIX INJ 40 MG VIAL IVP SCH (10:14)
--- NOTE | 2021-03-24 10:27 | PCM.PROG ---
Progress Note - Progress Note for Day of Date of Exam: 03/24/21 - Subjective Subjective: WAS ADMITTED YESTERDAY DUE TO BOWEL PERFORATION, LEUKOCYTOSIS, ABDOMINAL PAIN. SHE IS DAY 2 POST OP. S/P LAPAROTOMY AND SMALL BOWEL RESECTION FOR PERFORATED SMALL BOWEL. TODAY, SHE IS ALERT AND ORIENTED, LYING IN BED ON MORNING ROUNDS. SHE CONTINUES WITH COMPLAINTS OF DIFFUSE ABDOMINAL PAIN AND SEVERE NAUSEA. SHE HAS HAD SOME VOMITING. ON EXAMINATION, HEART IS REGULAR IN RATE AND RHYTHM. BILATERAL LUNGS NOTED TO HAVE DIMINISHED LUNG SOUNDS THROUGHOUT. ABDOMEN IS DISTENDED, SOFT, DIFFUSE TENDERNESS NOTED. TENDERNESS IS WORSE TO THE RLQ. HYPOACTIVE BOWEL SOUNDS NOTED. CASTRO CATHETER IS NOTED TO BEDSIDE DRAINAGE. HER VITALS THIS MORNING ARE: 98.1-99-16-98%-106/56. LABS WERE OBTAINED. ABNORMAL LAB VALUES INCLUDE THE FOLLOWING: WBC 12.8, HGB 11.3, HCT 31.8, SODIUM 133, POTASSIUM 2.7, CHLORIDE 97, BUN 21, CREATININE 1.72, GLUCOSE 151, CALCIUM 7.4, ALK PHOS 30, TOTAL PROTEIN 5.9, ALBUMIN 2.8. SHE IS CURRENTLY RECEIVING D51/2 NS AT 125ML/HR, FLAGYL 500MG IV Q8H, ZOSYN 3.375G IV TID, LOVENOX 40MG SC DAILY, DILAUDID 2MG IV Q4H PRN, AND ZOFRAN 4MG IV Q4H PRN. TODAY, WE WILL ADD PHENERGAN 25MG IM Q6H PRN AND ADD POTASSIUM TO HER IV FLUIDS. WE WILL OBTAIN A KUB. OTHERWISE, WE WILL CONTINUE WITH CURRENT PLAN OF CARE TODAY. WILL CONTINUE TO FOLLOW PATIENT WELL. WE PLAN TO FOLLOW UP WITH AM LABS AND CONTINUE TO MONITOR. TIME SPENT ON CLINICAL ASSESSMENT, REVIEWING LABS AND IMAGING, DECISION MAKING, AND DOCUMENTATION GREATER THAN 45 MINUTES. - Past Medical Family Social History Past Med/Fam/Surg Hx: No changes since H&P Allergies: Allergies acetaminophen [From Darvocet-N] Allergy (Verified 04/03/20 09:40) propoxyphene [From Darvocet-N] Allergy (Verified 04/03/20 09:40) - Review of Systems ROS: No change since H&P - Vital Signs and I&O's Vital Signs: Temperature 98.1 F Pulse Rate [Left Brachial] 99 Pulse Rate 101 Respiratory Rate 16 Blood Pressure [Left Arm] 106/56 Blood Pressure 135/67 O2 Sat by Pulse Oximetry 98 Intake and Output: Intake & Output 03/21/21 03/22/21 03/23/21 03/24/21 11:59 11:59 11:59 11:59 Intake Total 715 / 715 5097 / 5097 3731 / 3731 Output Total 2637 / 3137 4969 / 4969 Balance 715 / 715 2460 / 1960 -1238 / -1238 - Physical Exam Oriented: Normal Eyes: Normal Ear: Normal Nose: Normal Respiratory: Diminished Cardiovascular: Normal : Normal Auscultation: Bowel Sounds: Decreased Palpation: Normal Tenderness: Diffuse (soft abdomen with diffuse tenderness . BS+ but hypoactive ), RLQ (soft abdomen with moderate distention , BS hypoactive . with moderate to severe RLQ ) Skin: Normal Musculoskeletal: Normal Psychiatric: Normal Mood Description: Calm Speech Pattern: Clear - Laboratory and Diagnostics Result Diagrams: 03/24/21 05:50 03/24/21 05:50 Labs: 03/22/21 13:50 Abdomen Wound Gram Stain - Final 03/22/21 13:50 Abdomen Wound Culture - Preliminary Laboratory WBC 12.8 X10^3/uL (3.6-10.0) H 03/24/21 05:50 RBC 3.64 X10^6/uL (3.5-5.4) 03/24/21 05:50 Hgb 11.3 g/dL (12.0-16.0) L 03/24/21 05:50 Hct 31.8 % (36.0-47.0) L 03/24/21 05:50 MCV 87.3 fL (80.0-100.0) 03/24/21 05:50 MCH 31.0 pg (27.0-34.0) 03/24/21 05:50 MCHC 35.5 g/dL (33.0-35.0) H 03/24/21 05:50 RDW 14.2 % (11.6-16.5) 03/24/21 05:50 Plt Count 204 X10^3/uL (150.0-450.0) 03/24/21 05:50 Plt Count Comment Adequate (ADEQUATE) 03/22/21 16:04 MPV 9.0 fL (7.4-11.0) 03/24/21 05:50 Neut % (Auto) 84.2 % (42.0-75.0) H 03/24/21 05:50 Lymph % (Auto) 8.0 % (21.0-51.0) L 03/24/21 05:50 [place] % (Auto) 6.8 % (0.0-13.0) 03/24/21 05:50 Eos % (Auto) 0.7 % (0.9-2.9) L 03/24/21 05:50 Baso % (Auto) 0.3 % (0.2-1.0) 03/24/21 05:50 Neut # (Auto) 10.7 x10^3/uL (2.2-4.8) H 03/24/21 05:50 Lymph # (Auto) 1.0 X10^3/uL (1.3-2.9) L 03/24/21 05:50 [place] # (Auto) 0.9 x10^3/uL (0.3-0.8) H 03/24/21 05:50 Eos # (Auto) 0.1 x10^3/uL (0.0-0.2) 03/24/21 05:50 Baso # (Auto) 0.0 X10^3/uL (0.0-0.1) 03/24/21 05:50 Absolute Nucleated RBC 0.1 /100WBC 03/24/21 05:50 Total Counted 100 03/22/21 16:04 Neutrophils % (Manual) 86 % (39-76) H 03/22/21 16:04 Band Neutrophils % 3 % (0-10) 03/22/21 16:04 Lymphocytes % (Manual) 8 % (13-43) L 03/22/21 16:04 Monocytes % (Manual) 3 % (4-9) L 03/22/21 16:04 Basophils % (Manual) 1 % (0-1) 03/22/21 05:18 Atypical Lymphocytes Few A 03/21/21 14:35 Plt Morphology Comment Normal (NORMAL) 03/22/21 16:04 RBC Morphology Normal (NORMAL) 03/22/21 16:04 PT 14.4 SECONDS (11.8-14.3) 03/21/21 21:06 INR Target Range - 03/21/21 21:06 INR 1.17 (0.8-1.3) 03/21/21 21:06 APTT 30.3 SECONDS (22.9-36.5) 03/21/21 21:06 PTT Comment - 03/21/21 21:06 Sodium 133 mmol/L (136-145) L 03/24/21 05:50 Corrected Sodium 134 mmol/L (136-145) L 03/24/21 05:50 Potassium 2.7 mmol/L (3.5-5.1) L* 03/24/21 05:50 Chloride 97 mmol/L (98-107) L 03/24/21 05:50 Carbon Dioxide 29.5 mmol/L (21-32) 03/24/21 05:50 BUN 21 mg/dL (7-18) H 03/24/21 05:50 Creatinine 1.72 mg/dL (0.55-1.02) H 03/24/21 05:50 Est GFR (MDRD) Af Amer 37 (>60) L 03/24/21 05:50 Est GFR (MDRD) Non-Af 31 (>60) L 03/24/21 05:50 Glucose 151 mg/dL (65-99) H 03/24/21 05:50 Calcium 7.4 mg/dL (8.5-10.1) L 03/24/21 05:50 Corrected Calcium 8.4 mg/dL (8.5-10.1) L 03/24/21 05:50 Total Bilirubin 0.70 mg/dL (0.2-1.0) 03/24/21 05:50 AST 20 Units/L (15-37) 03/24/21 05:50 ALT 17 Units/L (12-78) 03/24/21 05:50 Alkaline Phosphatase 30 Units/L (46-116) L 03/24/21 05:50 Total Protein 5.9 g/dL (6.4-8.2) L 03/24/21 05:50 Albumin 2.8 g/dL (3.4-5.0) L 03/24/21 05:50 Globulin 3.1 g/dL (2.5-4.5) 03/24/21 05:50 Albumin/Globulin Ratio 0.9 Ratio (1.1-2.1) L 03/24/21 05:50 Amylase 45 Units/L (25-115) 03/21/21 14:35 Lipase 59 Units/L (73-393) L 03/21/21 14:35 SARS-CoV-2 (PCR) Negative (NEGATIVE) 03/21/21 20:50 Influenza Type A (PCR) Negative (NEGATIVE) 03/21/21 20:50 Influenza Type B (PCR) Negative (NEGATIVE) 03/21/21 20:50 RSV (PCR) Negative (NEGATIVE) 03/21/21 20:50 Tissue Pathology To follow 03/22/21 14:10 - Plan (1) Bowel perforation Status: Acute Plan: S/P LAPAROTOMY AND SMALL BOWEL RESECTION. D51/2 NS WITH 20MEQ KCL AT 125ML/HR, FLAGYL 500MG IV Q8H, ZOSYN 3.375G IV TID, LOVENOX 40MG SC DAILY, DILAUDID 2MG IV Q4H PRN, AND ZOFRAN 4MG IV Q4H PRN, PHENERGAN 25MG IM Q6H PRN (2) Leucocytosis Status: Acute Qualifiers: Leukocytosis type: other Qualified Code(s): D72.828 - Other elevated white blood cell count (3) Nausea & vomiting Status: Acute Qualifiers: Vomiting type: unspecified Vomiting Intractability: non-intractable Qualified Code(s): R11.2 - Nausea with vomiting, unspecified
[2021-03-24] MEDS: LOVENOX INJ 40 MG SYR SC SCH (11:04)
--- NOTE | 2021-03-24 13:43 | RAD ---
HISTORYAbdominal distensionSTUDYKUBCOMPARISONNoneFINDINGSSurgical cynthia are present right lower abdomen. The abdomin al gas pattern is nonspecific and nonobstructive. No dilated bowel is identified. No abnormal masses or abnormal calcifications are identified. Regional skeleton is intact.IMPRESSIONUnremarkable postope rative KUBElectronically signed by: DEAN KNIGHT (Mar 24, 2021 13:42:09)
[2021-03-24] MEDS: SYNTHROID 50 mcg TAB PO SCH (14:42)
[2021-03-24] MEDS: D5 1/2 NS + KCL 20 MEQ/L 1,000 ML IV SCH (17:15)
[2021-03-24] MEDS ORDERED: PHENERGAN TAB 25 MG PO PRN (18:00)
[2021-03-24] MEDS: TIMOPTIC 0.5% EYE DROPS AFFEYE SCH (20:43)
[2021-03-24] MEDS: XALATAN EACHEYE SCH (20:44)
[2021-03-25] MEDS: D5 1/2 NS + KCL 20 MEQ/L 1,000 ML IV SCH ×4 (02:05→16:55)
[2021-03-25] MEDS: DILAUDID INJ IVP PRN ×4 (04:36→23:15)
[2021-03-25] MEDS: FLAGYL IV PREMIX 500 MG BAG 500 MG/100 ML BAG IV SCH ×4 (05:35→21:28)
[2021-03-25] MEDS: ZOSYN VIAL 3.375 GRAMS 3.375 G in NS 50 ML IV + SPIKE MINIBAG* 50 ML IV SCH ×3 (05:36→21:29)
[2021-03-25] MEDS: SYNTHROID 50 mcg TAB PO SCH (05:36)
[2021-03-25 06:14] LABS: BASOPHILS # (AUTO) 0.1 X10^3/uL (0.0-0.1); BASOPHILS % (AUTO) 0.7 % (0.2-1.0); EOSINOPHILS # (AUTO) 0.2 x10^3/uL (0.0-0.2); EOSINOPHILS % (AUTO) 1.5 % (0.9-2.9); HEMATOCRIT 32.6 % (36.0-47.0); HEMOGLOBIN 11.7 g/dL (12.0-16.0); LYMPHOCYTES # (AUTO) 1.5 X10^3/uL (1.3-2.9); LYMPHOCYTES % (AUTO) 14.6 % (21.0-51.0); MEAN CORPUSCULAR HEMOGLOBIN 31.4 pg (27.0-34.0); MEAN CORPUSCULAR VOLUME 87.1 fL (80.0-100.0); MEAN PLATELET VOLUME 8.4 fL (7.4-11.0); MONOCYTES % (AUTO) 9.3 % (0.0-13.0); NEUTROPHILS # (AUTO) 7.7 x10^3/uL (2.2-4.8); NEUTROPHILS % (AUTO) 73.9 % (42.0-75.0); PLATELET COUNT 254 X10^3/uL (150.0-450.0); RED BLOOD COUNT 3.74 X10^6/uL (3.5-5.4); RED CELL DISTRIBUTION WIDTH 14.2 % (11.6-16.5); WHITE BLOOD COUNT 10.4 X10^3/uL (3.6-10.0)
[2021-03-25 06:30] LABS: ALBUMIN 2.8 g/dL (3.4-5.0); CALCIUM 7.8 mg/dL (8.5-10.1); CARBON DIOXIDE 28.6 mmol/L (21-32); COR CA(FOR HYPOALB) 8.8 mg/dL (8.5-10.1); CREATININE 1.27 mg/dL (0.55-1.02); TOTAL PROTEIN 6.2 g/dL (6.4-8.2)
[2021-03-25] MEDS: PROTONIX INJ 40 MG VIAL IVP SCH (09:14)
[2021-03-25] MEDS: LOVENOX INJ 40 MG SYR SC SCH (09:15)
[2021-03-25] MEDS: TIMOPTIC 0.5% EYE DROPS AFFEYE SCH ×2 (09:15→21:36)
--- NOTE | 2021-03-25 09:24 | DR.PROGNOT ---
Hospital Progress Notes - Progress Note for Day of: Progress Note Date: 03/25/21 - Chief Complaint Chief Complaint: Post op day 3. s/p laparotomy and small bowel resection for ferforated small bowel .. feeling better .. no nausea and tolerating liquid well. WBC 10.4. K 3.2... temp 98 - Past Medical Family Social History Past Med/Fam/Surg Hx: No changes since H&P Allergies: Allergies acetaminophen [From Darvocet-N] Allergy (Verified 04/03/20 09:40) gelatin Allergy (Verified 03/24/21 17:34) propoxyphene [From Darvocet-N] Allergy (Verified 04/03/20 09:40) - Review Of Systems ROS: No change since H&P - Vital Signs Vital Signs: Temperature 98.5 F Pulse Rate [Right Brachial] 82 Pulse Rate [Left Brachial] 86 Pulse Rate 101 Respiratory Rate 24 Blood Pressure [Right Arm] 151/65 Blood Pressure [Left Arm] 156/72 Blood Pressure 135/67 O2 Sat by Pulse Oximetry 98 - Physical Exam Oriented: Normal Eyes: Normal Ear: Normal Nose: Normal Respiratory: Diminished Cardiovascular: Normal : Normal GI:Auscultation: Decreased GI:Palpation: Normal GI: Tenderness: Diffuse (soft abdomen with diffuse tenderness . BS+ but hypoactive ), RLQ (soft abdomen with moderate distention , BS hypoactive . with moderate to severe RLQ ) Skin: Normal Musculoskeletal: Normal Psychiatric: Normal Mood Description: Calm Speech Pattern: Clear - Laboratory and Diagnostics Result Diagrams: 03/25/21 05:40 03/25/21 05:40 Labs: 03/22/21 13:50 Abdomen Wound Gram Stain - Final 03/22/21 13:50 Abdomen Wound Culture - Final Laboratory WBC 10.4 X10^3/uL (3.6-10.0) H 03/25/21 05:40 RBC 3.74 X10^6/uL (3.5-5.4) 03/25/21 05:40 Hgb 11.7 g/dL (12.0-16.0) L 03/25/21 05:40 Hct 32.6 % (36.0-47.0) L 03/25/21 05:40 MCV 87.1 fL (80.0-100.0) 03/25/21 05:40 MCH 31.4 pg (27.0-34.0) 03/25/21 05:40 MCHC 36.0 g/dL (33.0-35.0) H 03/25/21 05:40 RDW 14.2 % (11.6-16.5) 03/25/21 05:40 Plt Count 254 X10^3/uL (150.0-450.0) 03/25/21 05:40 Plt Count Comment Adequate (ADEQUATE) 03/22/21 16:04 MPV 8.4 fL (7.4-11.0) 03/25/21 05:40 Neut % (Auto) 73.9 % (42.0-75.0) 03/25/21 05:40 Lymph % (Auto) 14.6 % (21.0-51.0) L 03/25/21 05:40 [place] % (Auto) 9.3 % (0.0-13.0) 03/25/21 05:40 Eos % (Auto) 1.5 % (0.9-2.9) 03/25/21 05:40 Baso % (Auto) 0.7 % (0.2-1.0) 03/25/21 05:40 Neut # (Auto) 7.7 x10^3/uL (2.2-4.8) H 03/25/21 05:40 Lymph # (Auto) 1.5 X10^3/uL (1.3-2.9) 03/25/21 05:40 [place] # (Auto) 1.0 x10^3/uL (0.3-0.8) H 03/25/21 05:40 Eos # (Auto) 0.2 x10^3/uL (0.0-0.2) 03/25/21 05:40 Baso # (Auto) 0.1 X10^3/uL (0.0-0.1) 03/25/21 05:40 Absolute Nucleated RBC 0.0 /100WBC 03/25/21 05:40 Total Counted 100 03/22/21 16:04 Neutrophils % (Manual) 86 % (39-76) H 03/22/21 16:04 Band Neutrophils % 3 % (0-10) 03/22/21 16:04 Lymphocytes % (Manual) 8 % (13-43) L 03/22/21 16:04 Monocytes % (Manual) 3 % (4-9) L 03/22/21 16:04 Basophils % (Manual) 1 % (0-1) 03/22/21 05:18 Atypical Lymphocytes Few A 03/21/21 14:35 Plt Morphology Comment Normal (NORMAL) 03/22/21 16:04 RBC Morphology Normal (NORMAL) 03/22/21 16:04 PT 14.4 SECONDS (11.8-14.3) 03/21/21 21:06 INR Target Range - 03/21/21 21:06 INR 1.17 (0.8-1.3) 03/21/21 21:06 APTT 30.3 SECONDS (22.9-36.5) 03/21/21 21:06 PTT Comment - 03/21/21 21:06 Sodium 139 mmol/L (136-145) 03/25/21 05:40 Corrected Sodium 140 mmol/L (136-145) 03/25/21 05:40 Potassium 3.2 mmol/L (3.5-5.1) L 03/25/21 05:40 Chloride 102 mmol/L (98-107) 03/25/21 05:40 Carbon Dioxide 28.6 mmol/L (21-32) 03/25/21 05:40 BUN 12 mg/dL (7-18) 03/25/21 05:40 Creatinine 1.27 mg/dL (0.55-1.02) H 03/25/21 05:40 Est GFR (MDRD) Af Amer 53 (>60) L 03/25/21 05:40 Est GFR (MDRD) Non-Af 44 (>60) L 03/25/21 05:40 Glucose 139 mg/dL (65-99) H 03/25/21 05:40 Calcium 7.8 mg/dL (8.5-10.1) L 03/25/21 05:40 Corrected Calcium 8.8 mg/dL (8.5-10.1) 03/25/21 05:40 Magnesium 1.7 mg/dL (1.7-2.9) 03/25/21 05:48 Total Bilirubin 0.70 mg/dL (0.2-1.0) 03/25/21 05:40 AST 19 Units/L (15-37) 03/25/21 05:40 ALT 14 Units/L (12-78) 03/25/21 05:40 Alkaline Phosphatase 30 Units/L (46-116) L 03/25/21 05:40 Total Protein 6.2 g/dL (6.4-8.2) L 03/25/21 05:40 Albumin 2.8 g/dL (3.4-5.0) L 03/25/21 05:40 Globulin 3.4 g/dL (2.5-4.5) 03/25/21 05:40 Albumin/Globulin Ratio 0.8 Ratio (1.1-2.1) L 03/25/21 05:40 Amylase 45 Units/L (25-115) 03/21/21 14:35 Lipase 59 Units/L (73-393) L 03/21/21 14:35 SARS-CoV-2 (PCR) Negative (NEGATIVE) 03/21/21 20:50 Influenza Type A (PCR) Negative (NEGATIVE) 03/21/21 20:50 Influenza Type B (PCR) Negative (NEGATIVE) 03/21/21 20:50 RSV (PCR) Negative (NEGATIVE) 03/21/21 20:50 Tissue Pathology To follow 03/22/21 14:10 - Assessment and Plan 1: perforated small bowel with localized peritonitis . s/p laparotomy and bowel resection . same PO care . on full liquid , OOB , K supplement and same PO car e - Problem Patient Problems: Patient Problems Bowel perforation (Acute) K63.1 Leucocytosis (Acute) D72.829 Nausea & vomiting (Acute) R11.2
--- NOTE | 2021-03-25 11:20 | PCM.PROG ---
Progress Note - Progress Note for Day of Date of Exam: 03/25/21 - Subjective Subjective: WAS ADMITTED YESTERDAY DUE TO BOWEL PERFORATION, LEUKOCYTOSIS, ABDOMINAL PAIN. SHE IS DAY 3 POST OP. S/P LAPAROTOMY AND SMALL BOWEL RESECTION FOR PERFORATED SMALL BOWEL. TODAY, SHE IS ALERT AND ORIENTED, LYING IN BED ON MORNING ROUNDS. SHE CONTINUES WITH COMPLAINTS OF DIFFUSE ABDOMINAL PAIN, BUT REPORTS IMPROVEMENT SINCE YESTERDAY. SHE DENIES NAUSEA THIS MORNING. ON EXAMINATION, HEART IS REGULAR IN RATE AND RHYTHM. BILATERAL LUNGS NOTED TO HAVE DIMINISHED LUNG SOUNDS THROUGHOUT. ABDOMEN IS DISTENDED, SOFT, DIFFUSE TENDERNESS NOTED. TENDERNESS IS WORSE TO THE RLQ. HYPOACTIVE BOWEL SOUNDS NOTED. CASTRO CATHETER IS NOTED TO BEDSIDE DRAINAGE. HER VITALS THIS MORNING ARE: 98.5-82-24-98%-151/65. LABS WERE OBTAINED. ABNORMAL LAB VALUES INCLUDE THE FOLLOWING: WBC 10.4, HGB 11.7, HCT 32.6, POTASSIUM 3.2, CREATININE 1.27, GLUCOSE 139, CALCIUM 7.8, ALK PHOS 30, TOTAL PROTEIN 6.2, ALBUMIN 2.8. SHE IS CURRENTLY RECEIVING D51/2 NS WITH 20MEQ KCL AT 125ML/HR, FLAGYL 500MG IV Q8H, ZOSYN 3.375G IV TID, LOVENOX 40MG SC DAILY, DILAUDID 2MG IV Q4H PRN, PHENERGAN 25MG PO Q6H PRN, ZOFRAN 4MG IV Q4H PRN, SYNTHROID 50MCG PO DAILY. WE WILL REVIEW HER OTHER HOME MEDICATIONS AND RESUME APPROPRIATE TODAY. OTHERWISE, WE WILL CONTINUE WITH CURRENT PLAN OF CARE. WILL CONTINUE TO FOLLOW PATIENT WELL. WE PLAN TO FOLLOW UP WITH AM LABS AND CONTINUE TO MONITOR. TIME SPENT ON CLINICAL ASSESSMENT, REVIEWING LABS AND IMAGING, DECISION MAKING, AND DOCUMENTATION GREATER THAN 45 MINUTES. - Past Medical Family Social History Past Med/Fam/Surg Hx: No changes since H&P Allergies: Allergies acetaminophen [From Darvocet-N] Allergy (Verified 04/03/20 09:40) gelatin Allergy (Verified 03/24/21 17:34) propoxyphene [From Darvocet-N] Allergy (Verified 04/03/20 09:40) - Review of Systems ROS: No change since H&P - Vital Signs and I&O's Vital Signs: Temperature 98.5 F Pulse Rate [Right Brachial] 82 Pulse Rate [Left Brachial] 86 Pulse Rate 101 Respiratory Rate 24 Blood Pressure [Right Arm] 151/65 Blood Pressure [Left Arm] 156/72 Blood Pressure 135/67 O2 Sat by Pulse Oximetry 98 Intake and Output: Intake & Output 03/22/21 03/23/21 03/24/21 03/25/21 11:59 11:59 11:59 11:59 Intake Total 715 / 715 5097 / 5097 3731 / 3731 3408 / 3408 Output Total 2637 / 3137 5209 / 5249 4435 / 4435 Balance 715 / 715 2460 / 1960 -1478 / -1518 -1027 / -1027 - Physical Exam Oriented: Normal Eyes: Normal Ear: Normal Nose: Normal Respiratory: Diminished Cardiovascular: Normal : Normal Auscultation: Bowel Sounds: Decreased Tenderness: Diffuse (soft abdomen with diffuse tenderness . BS+ but hypoactive ), RLQ (soft abdomen with moderate distention , BS hypoactive . with moderate to severe RLQ ) Skin: Normal Musculoskeletal: Normal Psychiatric: Normal Mood Description: Calm Speech Pattern: Clear - Laboratory and Diagnostics Result Diagrams: 03/25/21 05:40 03/25/21 05:40 Labs: 03/22/21 13:50 Abdomen Wound Gram Stain - Final 03/22/21 13:50 Abdomen Wound Culture - Final Laboratory WBC 10.4 X10^3/uL (3.6-10.0) H 03/25/21 05:40 RBC 3.74 X10^6/uL (3.5-5.4) 03/25/21 05:40 Hgb 11.7 g/dL (12.0-16.0) L 03/25/21 05:40 Hct 32.6 % (36.0-47.0) L 03/25/21 05:40 MCV 87.1 fL (80.0-100.0) 03/25/21 05:40 MCH 31.4 pg (27.0-34.0) 03/25/21 05:40 MCHC 36.0 g/dL (33.0-35.0) H 03/25/21 05:40 RDW 14.2 % (11.6-16.5) 03/25/21 05:40 Plt Count 254 X10^3/uL (150.0-450.0) 03/25/21 05:40 Plt Count Comment Adequate (ADEQUATE) 03/22/21 16:04 MPV 8.4 fL (7.4-11.0) 03/25/21 05:40 Neut % (Auto) 73.9 % (42.0-75.0) 03/25/21 05:40 Lymph % (Auto) 14.6 % (21.0-51.0) L 03/25/21 05:40 [place] % (Auto) 9.3 % (0.0-13.0) 03/25/21 05:40 Eos % (Auto) 1.5 % (0.9-2.9) 03/25/21 05:40 Baso % (Auto) 0.7 % (0.2-1.0) 03/25/21 05:40 Neut # (Auto) 7.7 x10^3/uL (2.2-4.8) H 03/25/21 05:40 Lymph # (Auto) 1.5 X10^3/uL (1.3-2.9) 03/25/21 05:40 [place] # (Auto) 1.0 x10^3/uL (0.3-0.8) H 03/25/21 05:40 Eos # (Auto) 0.2 x10^3/uL (0.0-0.2) 03/25/21 05:40 Baso # (Auto) 0.1 X10^3/uL (0.0-0.1) 03/25/21 05:40 Absolute Nucleated RBC 0.0 /100WBC 03/25/21 05:40 Total Counted 100 03/22/21 16:04 Neutrophils % (Manual) 86 % (39-76) H 03/22/21 16:04 Band Neutrophils % 3 % (0-10) 03/22/21 16:04 Lymphocytes % (Manual) 8 % (13-43) L 03/22/21 16:04 Monocytes % (Manual) 3 % (4-9) L 03/22/21 16:04 Basophils % (Manual) 1 % (0-1) 03/22/21 05:18 Atypical Lymphocytes Few A 03/21/21 14:35 Plt Morphology Comment Normal (NORMAL) 03/22/21 16:04 RBC Morphology Normal (NORMAL) 03/22/21 16:04 PT 14.4 SECONDS (11.8-14.3) 03/21/21 21:06 INR Target Range - 03/21/21 21:06 INR 1.17 (0.8-1.3) 03/21/21 21:06 APTT 30.3 SECONDS (22.9-36.5) 03/21/21 21:06 PTT Comment - 03/21/21 21:06 Sodium 139 mmol/L (136-145) 03/25/21 05:40 Corrected Sodium 140 mmol/L (136-145) 03/25/21 05:40 Potassium 3.2 mmol/L (3.5-5.1) L 03/25/21 05:40 Chloride 102 mmol/L (98-107) 03/25/21 05:40 Carbon Dioxide 28.6 mmol/L (21-32) 03/25/21 05:40 BUN 12 mg/dL (7-18) 03/25/21 05:40 Creatinine 1.27 mg/dL (0.55-1.02) H 03/25/21 05:40 Est GFR (MDRD) Af Amer 53 (>60) L 03/25/21 05:40 Est GFR (MDRD) Non-Af 44 (>60) L 03/25/21 05:40 Glucose 139 mg/dL (65-99) H 03/25/21 05:40 Calcium 7.8 mg/dL (8.5-10.1) L 03/25/21 05:40 Corrected Calcium 8.8 mg/dL (8.5-10.1) 03/25/21 05:40 Magnesium 1.7 mg/dL (1.7-2.9) 03/25/21 05:48 Total Bilirubin 0.70 mg/dL (0.2-1.0) 03/25/21 05:40 AST 19 Units/L (15-37) 03/25/21 05:40 ALT 14 Units/L (12-78) 03/25/21 05:40 Alkaline Phosphatase 30 Units/L (46-116) L 03/25/21 05:40 Total Protein 6.2 g/dL (6.4-8.2) L 03/25/21 05:40 Albumin 2.8 g/dL (3.4-5.0) L 03/25/21 05:40 Globulin 3.4 g/dL (2.5-4.5) 03/25/21 05:40 Albumin/Globulin Ratio 0.8 Ratio (1.1-2.1) L 03/25/21 05:40 Amylase 45 Units/L (25-115) 03/21/21 14:35 Lipase 59 Units/L (73-393) L 03/21/21 14:35 SARS-CoV-2 (PCR) Negative (NEGATIVE) 03/21/21 20:50 Influenza Type A (PCR) Negative (NEGATIVE) 03/21/21 20:50 Influenza Type B (PCR) Negative (NEGATIVE) 03/21/21 20:50 RSV (PCR) Negative (NEGATIVE) 03/21/21 20:50 Tissue Pathology To follow 03/22/21 14:10 - Plan (1) Bowel perforation Status: Acute Plan: S/P LAPAROTOMY AND SMALL BOWEL RESECTION. D51/2 NS WITH 20MEQ KCL AT 125ML/HR, FLAGYL 500MG IV Q8H, ZOSYN 3.375G IV TID, LOVENOX 40MG SC DAILY, DILAUDID 2MG IV Q4H PRN, PHENERGAN 25MG PO Q6H PRN, ZOFRAN 4MG IV Q4H PRN, SYNTHROID 50MCG PO DAILY. (2) Leucocytosis Status: Acute Qualifiers: Leukocytosis type: other Qualified Code(s): D72.828 - Other elevated white blood cell count (3) Nausea & vomiting Status: Acute Qualifiers: Vomiting type: unspecified Vomiting Intractability: non-intractable Qualified Code(s): R11.2 - Nausea with vomiting, unspecified
[2021-03-25] MEDS: MICRO K EXTEN CAP 10 MEQ PO SCH (13:13)
[2021-03-25] MEDS: TRICOR TAB 145 MG PO SCH (13:14)
[2021-03-25] MEDS: SINGULAIR TAB 10 MG PO SCH (13:14)
[2021-03-25] MEDS ORDERED: CRESTOR TAB 10 MG PO SCH (21:00)
[2021-03-25] MEDS: XALATAN EACHEYE SCH (21:35)
[2021-03-26] MEDS: D5 1/2 NS + KCL 20 MEQ/L 1,000 ML IV SCH (03:25)
[2021-03-26 06:12] LABS: ALBUMIN 2.7 g/dL (3.4-5.0); CALCIUM 8.4 mg/dL (8.5-10.1); CARBON DIOXIDE 35.4 mmol/L (21-32); COR CA(FOR HYPOALB) 9.4 mg/dL (8.5-10.1); CREATININE 1.18 mg/dL (0.55-1.02); TOTAL PROTEIN 6.1 g/dL (6.4-8.2)
[2021-03-26] MEDS: FLAGYL IV PREMIX 500 MG BAG 500 MG/100 ML BAG IV SCH (06:13)
[2021-03-26] MEDS: SYNTHROID 50 mcg TAB PO SCH (06:14)
[2021-03-26] MEDS: ZOSYN VIAL 3.375 GRAMS 3.375 G in NS 50 ML IV + SPIKE MINIBAG* 50 ML IV SCH (06:14)
[2021-03-26] MEDS: DILAUDID INJ IVP PRN (06:25)
[2021-03-26 06:32] LABS: BASOPHILS # (AUTO) 0.1 X10^3/uL (0.0-0.1); BASOPHILS % (AUTO) 0.6 % (0.2-1.0); EOSINOPHILS # (AUTO) 0.3 x10^3/uL (0.0-0.2); EOSINOPHILS % (AUTO) 3.3 % (0.9-2.9); HEMATOCRIT 33.8 % (36.0-47.0); HEMOGLOBIN 12.1 g/dL (12.0-16.0); LYMPHOCYTES # (AUTO) 1.8 X10^3/uL (1.3-2.9); LYMPHOCYTES % (AUTO) 19.3 % (21.0-51.0); MEAN CORPUSCULAR HEMOGLOBIN 31.2 pg (27.0-34.0); MEAN CORPUSCULAR HGB CONC 35.7 g/dL (33.0-35.0); MEAN CORPUSCULAR VOLUME 87.4 fL (80.0-100.0); MEAN PLATELET VOLUME 8.7 fL (7.4-11.0); MONOCYTES # (AUTO) 0.9 x10^3/uL (0.3-0.8); MONOCYTES % (AUTO) 9.7 % (0.0-13.0); NEUTROPHILS # (AUTO) 6.1 x10^3/uL (2.2-4.8); NEUTROPHILS % (AUTO) 67.1 % (42.0-75.0); PLATELET COUNT 265 X10^3/uL (150.0-450.0); RED BLOOD COUNT 3.87 X10^6/uL (3.5-5.4); WHITE BLOOD COUNT 9.1 X10^3/uL (3.6-10.0)
[2021-03-26] MEDS: LOVENOX INJ 40 MG SYR SC SCH (09:00)
[2021-03-26] MEDS: PROTONIX INJ 40 MG VIAL IVP SCH (09:25)
[2021-03-26] MEDS: MICRO K EXTEN CAP 10 MEQ PO SCH (09:25)
[2021-03-26] MEDS: SINGULAIR TAB 10 MG PO SCH (09:28)
[2021-03-26] MEDS: TRICOR TAB 145 MG PO SCH (09:29)
[2021-03-26] MEDS: TIMOPTIC 0.5% EYE DROPS AFFEYE SCH (09:29)
--- NOTE | 2021-03-26 09:47 | DR.PROGNOT ---
Hospital Progress Notes - Progress Note for Day of: Progress Note Date: 03/26/21 - Chief Complaint Chief Complaint: Post op day 4. s/p laparotomy and small bowel resection for perforated small bowel .. feeling better today .tolerating liquid well. WBC 10.4. K 3.0 ... temp 98 - Past Medical Family Social History Past Med/Fam/Surg Hx: No changes since H&P Allergies: Allergies acetaminophen [From Darvocet-N] Allergy (Verified 04/03/20 09:40) gelatin Allergy (Verified 03/24/21 17:34) propoxyphene [From Darvocet-N] Allergy (Verified 04/03/20 09:40) - Review Of Systems ROS: No change since H&P - Vital Signs Vital Signs: Temperature 98.4 F Pulse Rate [Right Brachial] 85 Pulse Rate [Left Brachial] 85 Pulse Rate 101 Respiratory Rate 20 Blood Pressure [Right Arm] 130/67 Blood Pressure [Left Arm] 156/72 Blood Pressure 135/67 O2 Sat by Pulse Oximetry 94 - Physical Exam Oriented: Normal Eyes: Normal Ear: Normal Nose: Normal Respiratory: Diminished Cardiovascular: Normal : Normal GI:Auscultation: Decreased GI:Palpation: Normal GI: Tenderness: Diffuse (soft abdomen with diffuse tenderness . BS+ but hypoactive ), RLQ (soft abdomen with moderate distention , BS hypoactive . with moderate to severe RLQ ) Skin: Normal Musculoskeletal: Normal Psychiatric: Normal Mood Description: Calm Speech Pattern: Clear - Laboratory and Diagnostics Result Diagrams: 03/26/21 04:30 03/26/21 04:30 Labs: 03/22/21 13:50 Abdomen Wound Gram Stain - Final 03/22/21 13:50 Abdomen Wound Culture - Final Laboratory WBC 9.1 X10^3/uL (3.6-10.0) 03/26/21 04:30 RBC 3.87 X10^6/uL (3.5-5.4) 03/26/21 04:30 Hgb 12.1 g/dL (12.0-16.0) 03/26/21 04:30 Hct 33.8 % (36.0-47.0) L 03/26/21 04:30 MCV 87.4 fL (80.0-100.0) 03/26/21 04:30 MCH 31.2 pg (27.0-34.0) 03/26/21 04:30 MCHC 35.7 g/dL (33.0-35.0) H 03/26/21 04:30 RDW 14.0 % (11.6-16.5) 03/26/21 04:30 Plt Count 265 X10^3/uL (150.0-450.0) 03/26/21 04:30 Plt Count Comment Adequate (ADEQUATE) 03/22/21 16:04 MPV 8.7 fL (7.4-11.0) 03/26/21 04:30 Neut % (Auto) 67.1 % (42.0-75.0) 03/26/21 04:30 Lymph % (Auto) 19.3 % (21.0-51.0) L 03/26/21 04:30 [place] % (Auto) 9.7 % (0.0-13.0) 03/26/21 04:30 Eos % (Auto) 3.3 % (0.9-2.9) H 03/26/21 04:30 Baso % (Auto) 0.6 % (0.2-1.0) 03/26/21 04:30 Neut # (Auto) 6.1 x10^3/uL (2.2-4.8) H 03/26/21 04:30 Lymph # (Auto) 1.8 X10^3/uL (1.3-2.9) 03/26/21 04:30 [place] # (Auto) 0.9 x10^3/uL (0.3-0.8) H 03/26/21 04:30 Eos # (Auto) 0.3 x10^3/uL (0.0-0.2) H 03/26/21 04:30 Baso # (Auto) 0.1 X10^3/uL (0.0-0.1) 03/26/21 04:30 Absolute Nucleated RBC 0.1 /100WBC 03/26/21 04:30 Total Counted 100 03/22/21 16:04 Neutrophils % (Manual) 86 % (39-76) H 03/22/21 16:04 Band Neutrophils % 3 % (0-10) 03/22/21 16:04 Lymphocytes % (Manual) 8 % (13-43) L 03/22/21 16:04 Monocytes % (Manual) 3 % (4-9) L 03/22/21 16:04 Basophils % (Manual) 1 % (0-1) 03/22/21 05:18 Atypical Lymphocytes Few A 03/21/21 14:35 Plt Morphology Comment Normal (NORMAL) 03/22/21 16:04 RBC Morphology Normal (NORMAL) 03/22/21 16:04 PT 14.4 SECONDS (11.8-14.3) 03/21/21 21:06 INR Target Range - 03/21/21 21:06 INR 1.17 (0.8-1.3) 03/21/21 21:06 APTT 30.3 SECONDS (22.9-36.5) 03/21/21 21:06 PTT Comment - 03/21/21 21:06 Sodium 139 mmol/L (136-145) 03/26/21 04:30 Corrected Sodium 140 mmol/L (136-145) 03/26/21 04:30 Potassium 3.0 mmol/L (3.5-5.1) L* 03/26/21 04:30 Chloride 100 mmol/L (98-107) 03/26/21 04:30 Carbon Dioxide 35.4 mmol/L (21-32) H 03/26/21 04:30 BUN 7 mg/dL (7-18) 03/26/21 04:30 Creatinine 1.18 mg/dL (0.55-1.02) H 03/26/21 04:30 Est GFR (MDRD) Af Amer 57 (>60) L 03/26/21 04:30 Est GFR (MDRD) Non-Af 47 (>60) L 03/26/21 04:30 Glucose 143 mg/dL (65-99) H 03/26/21 04:30 Calcium 8.4 mg/dL (8.5-10.1) L 03/26/21 04:30 Corrected Calcium 9.4 mg/dL (8.5-10.1) 03/26/21 04:30 Magnesium 1.7 mg/dL (1.7-2.9) 03/25/21 05:48 Total Bilirubin 0.60 mg/dL (0.2-1.0) 03/26/21 04:30 AST 18 Units/L (15-37) 03/26/21 04:30 ALT 15 Units/L (12-78) 03/26/21 04:30 Alkaline Phosphatase 31 Units/L (46-116) L 03/26/21 04:30 Total Protein 6.1 g/dL (6.4-8.2) L 03/26/21 04:30 Albumin 2.7 g/dL (3.4-5.0) L 03/26/21 04:30 Globulin 3.4 g/dL (2.5-4.5) 03/26/21 04:30 Albumin/Globulin Ratio 0.8 Ratio (1.1-2.1) L 03/26/21 04:30 Amylase 45 Units/L (25-115) 03/21/21 14:35 Lipase 59 Units/L (73-393) L 03/21/21 14:35 SARS-CoV-2 (PCR) Negative (NEGATIVE) 03/21/21 20:50 Influenza Type A (PCR) Negative (NEGATIVE) 03/21/21 20:50 Influenza Type B (PCR) Negative (NEGATIVE) 03/21/21 20:50 RSV (PCR) Negative (NEGATIVE) 03/21/21 20:50 Tissue Pathology To follow 03/22/21 14:10 - Assessment and Plan 1: perforated small bowel with localized peritonitis . s/p laparotomy and bowel resection . Pt could be discharged from surgical point of view . soft diet , small meals . light activities . f/u in 10 days . - Problem Patient Problems: Patient Problems Bowel perforation (Acute) K63.1 Leucocytosis (Acute) D72.829 Nausea & vomiting (Acute) R11.2
[2021-03-26] MEDS ORDERED: TORADOL TAB PO PRN (10:53)
[2021-03-26 12:13] VITALS: BP 127/71
== END 2021-03-26 13:00 | disposition home or self-care (01) | DRG 391 ==
LOC: ER 13:16 → OBS 03-22 00:09 → MED/SURG 03-25 15:05
PROVIDERS: ADMIT Obstetrics & Gynecology Obstetrics; ATTEND Internal Medicine
DX: D72.828 Other elevated white blood cell count; I10 Essential (primary) hypertension; R11.2 Nausea with vomiting, unspecified; Z20.822 Contact with and (suspected) exposure to COVID-19; K65.0 Generalized (acute) peritonitis; R10.84 Generalized abdominal pain; K57.00 Diverticulitis of small intestine with perforation and abscess without bleeding; E78.2 Mixed hyperlipidemia; R51.9 Headache, unspecified

== ENCOUNTER 2021-04-15 08:18 | Inpatient (IN) ==
[2021-04-15 08:51] LABS: ABG BASE EXCESS 6.4 mmol/L (-2.0-2.0); ABG HCO3 29.2 mmol/L (22-26)
[2021-04-15 08:52] LABS: ABG ALLEN TEST POS
[2021-04-15] MEDS ORDERED: LEVAQUIN PREMIX IV 500 MG 500 MG/100 ML BAG IV NR (09:00)
--- NOTE | 2021-04-15 09:04 | DR.GENAD ---
HPI Time Seen Time Seen by Provider: 04/15/21 08:59 PCP Primary Care Physician: Christophe HPI Comment HPI Comment: A 75 y/o female presenting with c/o nausea, vomiting, decreased oral intake for over 1 week now. There is no fever. The emesis is mostly clear. She had a colectomy within the past1 month. She was noted with O2 sats. in the 60's while in triage but once placed on Oxygen, her saturation came up into the 90's. The daughter informed me that the pt. was having abdominal pain and the abdominal CT Scan was non-revealing of the etiology but the abdominal explorative laparotomy showed a perforated colon. That procedure was done on 03/22/2021. Complaint/Symptoms Chief Complaint:: Pt c/o nausea, decreased appetite and "feeling miserable" x 1.5 weeks. Pt recently had a portion of her intestines removed. COVID-19 Coronavirus risk:travel/contact w/high risk person: No Has patient experienced Coronavirus symptoms: No Nurses notes reviewed Nurses Notes Review: Yes Source History Provided: Patient and Family Member Mode of Arrival Mode of Arrival: Wheelchair Timing Onset of Chief Complaint: 04/08/21 Came on: Gradually Duration Duration: Constant PMH PMH Past Medical History: Yes Past Medical History: Dyslipidemia and Hypertension Past Surgical History: Yes Surgical History: Bowel Resection, Hysterectomy, Ortho Surgery and Tonsillectomy Family History History of Family Medical Conditions: Yes Family Medical History: Cancer, Coronary Artery Disease and Hypertension Social History Does patient currently use any type of tobacco product: No Have you used tobacco products in the last 12 months: No Type of Tobacco Use: None Does any household member use tobacco: No Alcohol Use: None Do you use any recreational Drugs:: No Lives With: Family Lives Where: Home Travel Risk Coronavirus risk:travel/contact w/high risk person: No Has patient experienced Coronavirus symptoms: No Infectious screening In the last 2 months have you had wt loss of >10#?: NO Have you had fever, night sweats or hemotysis?: No Have you traveled outside the country in the last 6 months?: No Isolation: Standard ROS Review of Systems Constitutional: No Symptoms Reported Eyes: No Symptoms Reported ENTM: No Symptoms Reported Respiratoy: No Symptoms Reported Cardiovascular: No Symptoms Reported Gastrointestinal/Abdominal: Nausea, Vomiting and Other (anorexia) Genitourinary: No Symptoms Reported Neurological: No Symptoms Reported Musculoskeletal: No Symptoms Reported Integumentary: No Symptoms Reported Hematologic/Lymphatic: No Symptoms Reported Endocrine: No Symptoms Reported Psychiatric: No Symptoms Reported PE Vital Signs Vitals: Temperature 99.0 F Pulse Rate 69 Respiratory Rate 29 Blood Pressure [Right Arm] 127/71 Blood Pressure 109/56 O2 Sat by Pulse Oximetry 94 General Limitations: No Limitations General Appearance: Alert and In No Apparent Distress Head Head Exam: Normal Inspection, Atraumatic and Normocephalic Eyes Eye exam: Normal Appearance, PERRL and EOMI ENT ENT Exam: Normal Exam, Normal Oropharynx, Normal External Ear Exam and Mucous Membranes Moist Neck Neck Exam: Normal Inspection, Full ROM and Trachea Midline Chest Chest Inspection: Normal Inspection and Symmetric Chest Wall Rise Respiratory Respiratory Exam: Normal Lung Sounds Bilat Cardiovascular Cardiovascular Exam: Regular Rate, Normal Rhythm, Normal Heart Sounds, +S1 and +S2 Abdominal Exam Abdominal Exam: Soft, Tenderness (mild lower abdomen), Incision (A vertical, healing, paramedian incision just to the Rt. of the umbilicus. It measures about 4 inches in length and is without erythema or dehiscence. ) and Other (hypoactive BS) Extremities Extremities Exam: Normal Inspection and Full ROM Back Back Exam: Normal Inspection and Full ROM Neurologic Neurological Exam: Alert and Oriented X3 Psychiatric Psychiatric Exam: Normal Affect Skin Skin Exam: Intact COURSE Reevaluation 1st: Unchanged Education/Counseling Education/Counseling: Patient, Family, Education and Counseling Educated On: Treatment, Diagnosis, Prognosis and Needs for Follow Up ROR Labs Reviewed Result Diagrams: 04/15/21 08:45 04/15/21 08:45 Laboratory: WBC 8.2 X10^3/uL (3.6-10.0) 04/15/21 08:45 RBC 4.62 X10^6/uL (3.5-5.4) 04/15/21 08:45 Hgb 14.0 g/dL (12.0-16.0) 04/15/21 08:45 Hct 40.2 % (36.0-47.0) 04/15/21 08:45 MCV 87.0 fL (80.0-100.0) 04/15/21 08:45 MCH 30.2 pg (27.0-34.0) 04/15/21 08:45 MCHC 34.8 g/dL (33.0-35.0) 04/15/21 08:45 RDW 14.2 % (11.6-16.5) 04/15/21 08:45 Plt Count 254 X10^3/uL (150.0-450.0) 04/15/21 08:45 MPV 8.8 fL (7.4-11.0) 04/15/21 08:45 Neut % (Auto) 79.2 % (42.0-75.0) H 04/15/21 08:45 Lymph % (Auto) 9.5 % (21.0-51.0) L 04/15/21 08:45 [place] % (Auto) 10.9 % (0.0-13.0) 04/15/21 08:45 Eos % (Auto) 0.0 % (0.9-2.9) L 04/15/21 08:45 Baso % (Auto) 0.4 % (0.2-1.0) 04/15/21 08:45 Neut # (Auto) 6.5 x10^3/uL (2.2-4.8) H 04/15/21 08:45 Lymph # (Auto) 0.8 X10^3/uL (1.3-2.9) L 04/15/21 08:45 [place] # (Auto) 0.9 x10^3/uL (0.3-0.8) H 04/15/21 08:45 Eos # (Auto) 0.0 x10^3/uL (0.0-0.2) 04/15/21 08:45 Baso # (Auto) 0.0 X10^3/uL (0.0-0.1) 04/15/21 08:45 Absolute Nucleated RBC 0.1 /100WBC 04/15/21 08:45 PT 14.3 SECONDS (11.8-14.3) 04/15/21 08:45 INR Target Range - 04/15/21 08:45 INR 1.17 (0.8-1.3) 04/15/21 08:45 APTT 33.7 SECONDS (22.9-36.5) 04/15/21 08:45 PTT Comment - 04/15/21 08:45 D-Dimer 1.13 ug/ml (0.0-0.57) H* 04/15/21 08:45 Sample Site Rra 04/15/21 08:47 ABG pH 7.530 (7.35-7.45) H 04/15/21 08:47 ABG pCO2 35.0 mmHg (35.0-45.0) 04/15/21 08:47 ABG pO2 36.0 mmHg (80.0-100.0) L* 04/15/21 08:47 ABG HCO3 29.2 mmol/L (22-26) H 04/15/21 08:47 ABG O2 Saturation 77.0 % (90-100) L* 04/15/21 08:47 ABG Base Excess 6.4 mmol/L (-2.0-2.0) H 04/15/21 08:47 Jonathan Test Pos 04/15/21 08:47 A-a Gradient 70.0 mmHg 04/15/21 08:47 FiO2 21.0 04/15/21 08:47 Blood Gas Comments Pt doris well eb 04/15/21 08:47 Sodium 135 mmol/L (136-145) L 04/15/21 08:45 Corrected Sodium 136 mmol/L (136-145) 04/15/21 08:45 Potassium 3.3 mmol/L (3.5-5.1) L 04/15/21 08:45 Chloride 94 mmol/L (98-107) L 04/15/21 08:45 Carbon Dioxide 29.4 mmol/L (21-32) 04/15/21 08:45 BUN 66 mg/dL (7-18) H 04/15/21 08:45 Creatinine 2.95 mg/dL (0.55-1.02) H 04/15/21 08:45 Est GFR (MDRD) Af Amer 20 (>60) L 04/15/21 08:45 Est GFR (MDRD) Non-Af 16 (>60) L 04/15/21 08:45 Glucose 135 mg/dL (65-99) H 04/15/21 08:45 Lactic Acid 2.3 mmol/L (0.4-2.0) H 04/15/21 08:45 Calcium 8.9 mg/dL (8.5-10.1) 04/15/21 08:45 Corrected Calcium 9.7 mg/dL (8.5-10.1) 04/15/21 08:45 Total Bilirubin 1.10 mg/dL (0.2-1.0) H 04/15/21 08:45 AST 61 Units/L (15-37) H 04/15/21 08:45 ALT 27 Units/L (12-78) 04/15/21 08:45 Alkaline Phosphatase 40 Units/L (46-116) L 04/15/21 08:45 Creatine Kinase 89 Units/L (26-192) 04/15/21 08:45 CK-MB (CK-2) < 1.0 ng/mL (0-4.0) 04/15/21 08:45 CK/CKMB % Calc 1.1 % (<4) 04/15/21 08:45 Troponin I < 0.02 ng/mL (0-1.5) 04/15/21 08:45 Total Protein 7.2 g/dL (6.4-8.2) 04/15/21 08:45 Albumin 3.0 g/dL (3.4-5.0) L 04/15/21 08:45 Globulin 4.2 g/dL (2.5-4.5) 04/15/21 08:45 Albumin/Globulin Ratio 0.7 Ratio (1.1-2.1) L 04/15/21 08:45 SARS-CoV-2 (PCR) Positive (NEGATIVE) A 04/15/21 08:44 Influenza Type A (PCR) Negative (NEGATIVE) 04/15/21 08:44 Influenza Type B (PCR) Negative (NEGATIVE) 04/15/21 08:44 RSV (PCR) Negative (NEGATIVE) 04/15/21 08:44 EKG Rate: 80 [place]: Normal Rhythm: NSR Opioid Opioid Risk Tool Age (Je box if 16-45): No History of Preadolescent Sexual Abuse: No Total: 0 Total Score Risk Category: Low Risk Copyright: Eduardo HUSSEIN predicting aberrant behaviors Diagnosis Discharge Problem: COVID-19, Azotemia, Hypoxemia Nausea & vomiting Qualifiers: Vomiting type: unspecified Vomiting Intractability: non-intractable Qualified Code(s): R11.2 - Nausea with vomiting, unspecified ADDITIONAL NOTES Additional Notes Additional Notes: HISTORY Abdominal distension STUDY KUB COMPARISON None FINDINGS Surgical cynthia are present right lower abdomen. The abdominal gas pattern is nonspecific and nonobstructive. No dilated bowel is identified. No abnormal masses or abnormal calcifications are identified. Regional skeleton is intact. IMPRESSION Unremarkable postoperative KUB Electronically signed by: DEAN KNIGHT (Mar 24, 2021 13:42:09)
[2021-04-15 09:16] LABS: BASOPHILS % (AUTO) 0.4 % (0.2-1.0); HEMATOCRIT 40.2 % (36.0-47.0); LYMPHOCYTES # (AUTO) 0.8 X10^3/uL (1.3-2.9); LYMPHOCYTES % (AUTO) 9.5 % (21.0-51.0); MEAN CORPUSCULAR HEMOGLOBIN 30.2 pg (27.0-34.0); MEAN CORPUSCULAR HGB CONC 34.8 g/dL (33.0-35.0); MEAN PLATELET VOLUME 8.8 fL (7.4-11.0); MONOCYTES # (AUTO) 0.9 x10^3/uL (0.3-0.8); MONOCYTES % (AUTO) 10.9 % (0.0-13.0); NEUTROPHILS # (AUTO) 6.5 x10^3/uL (2.2-4.8); NEUTROPHILS % (AUTO) 79.2 % (42.0-75.0); PLATELET COUNT 254 X10^3/uL (150.0-450.0); RED BLOOD COUNT 4.62 X10^6/uL (3.5-5.4); RED CELL DISTRIBUTION WIDTH 14.2 % (11.6-16.5); WHITE BLOOD COUNT 8.2 X10^3/uL (3.6-10.0)
[2021-04-15 09:39] LABS: ALANINE AMINOTRANSFERASE 27 Units/L (12-78); ALKALINE PHOSPHATASE 40 Units/L (46-116); ASPARTATE AMINO TRANSFERASE 61 Units/L (15-37); BLOOD UREA NITROGEN 66 mg/dL (7-18); CALCIUM 8.9 mg/dL (8.5-10.1); CARBON DIOXIDE 29.4 mmol/L (21-32); CHLORIDE 94 mmol/L (98-107); CKMB % 1.1 % (<4); COR CA(FOR HYPOALB) 9.7 mg/dL (8.5-10.1); COR NA(FOR HYPERGLY) 136 mmol/L (136-145); CREATINE KINASE 89 Units/L (26-192); CREATINE KINASE MB < 1.0 ng/mL (0-4.0); CREATININE 2.95 mg/dL (0.55-1.02); SODIUM 135 mmol/L (136-145); TOTAL PROTEIN 7.2 g/dL (6.4-8.2); TROPONIN I < 0.02 ng/mL (0-1.5); eGFR NON BLACK RACES 16 (>60)
--- NOTE | 2021-04-15 10:09 | RAD ---
HISTORYAbdominal painSTUDYAcute abdominal [id number]/19/2021FINDINGSHeart is enlarged. No congestive heart failure is noted. The lungs are free of acute alveolar infiltrates. Chronic appearing interstitial lung changes are present the abdominal gas pattern is nonspecific and nonobstructive. No abnormal masses or abnormal calcifications are identified. No pneumoperitoneum is present. Regional skeleton is intact.IMPRESSIONUnremarkable acute abdominal seriesElectronically signed by: DEAN KNIGHT (Apr 15, 2021 10:07:31)
[2021-04-15] MEDS ORDERED: NS 1000 ML 1,000 ML ONE (10:29)
[2021-04-15] MEDS: D5 NS 1000 ML 1,000 ML IV SCH ×2 (10:38→12:00)
[2021-04-15] MEDS ORDERED: NS 1000 ML 1,000 ML IV ONE (11:01)
[2021-04-15] MEDS ORDERED: HumuLIN R SUBCUT PRN (12:11)
[2021-04-15] MEDS ORDERED: ROBITUSSIN DM PO PRN (12:11)
[2021-04-15] MEDS ORDERED: REMDESIVIR 200 MG in NS 250 ML IV 250 ML IV ONE (12:11)
[2021-04-15] MEDS ORDERED: NS 1/2 1000 ML IV 1,000 ML IV ONE (12:46)
[2021-04-15] MEDS: NS 1/2 1000 ML IV 1,000 ML IV SCH ×2 (12:50→14:02)
[2021-04-15] MEDS ORDERED: PHARMACY CONSULT - IVERMECTIN XX SCH (13:00)
[2021-04-15] MEDS: PROTONIX INJ 40 MG VIAL IVP SCH ×2 (14:01→20:31)
[2021-04-15] MEDS: PEPCID TAB 20 MG PO SCH (14:01)
[2021-04-15] MEDS: REMDESIVIR 100 MG in NS 250 ML IV 250 ML IV SCH (14:01)
[2021-04-15] MEDS: SOLU-Medrol 40 MG VIAL IVP SCH ×2 (14:01→21:31)
[2021-04-15] MEDS: LOVENOX INJ 30 MG SYR SC SCH (14:01)
[2021-04-15] MEDS: TESSALON PERLES PO SCH ×2 (14:02→21:31)
[2021-04-15] MEDS: ACCUNEB 1.25 MG NEBULE NEB SCH ×2 (14:40→20:07)
[2021-04-15] MEDS: ASCORBIC ACID INJ MULTI-DOSE VIAL 1,500 MG in NS 50 ML IV 50 ML IV SCH ×2 (15:19→20:30)
[2021-04-15] MEDS ORDERED: ZOFRAN INJ 4 MG VIAL IVP PRN (17:50)
[2021-04-15] MEDS ORDERED: PULMICORT NEB TX 0.5 MG NEB ONE (19:30)
[2021-04-15] MEDS: PULMICORT NEB TX 0.5 MG NEB SCH (20:07)
[2021-04-15] MEDS: SNACK - Diabetic Appropriate PO SCH (20:25)
--- NOTE | 2021-04-15 20:27 | CT ---
HISTORYABD PAINSTUDYABDOMEN/PELVIS W/O CONCOMPARISONSeptember 2020TECHNIQUENon-contrasted axial CT images of the abdomen and pelvis were obtained and reformatted into coronal and sagittal planes for further evaluation.Radiation dose: 485.30 mGy-cm total DLPFINDINGSHazy bilateral airspace opacities in the lower lobes with smooth interlobular and interlobular septal thickening.Sliding-type hiatal hernia.Otherwise, unremarkable appearance of the stomach.Diffuse fatty infiltration of the liver.Spleen, pancreas and adrenal glands are unremarkable.Atherosclerotic changes to the aorta without aneurysm.Gallbladder appears normal.No intra or extrahepatic biliary dilatation.Nonobstructing 4 mm left nephrolith.Otherwise, unremarkable appearance of the ureters.No hydronephrosis, hydroureter or ureteral calculus.Unremarkable appearance of the urinary bladder.Colonic diverticulosis without diverticulitis.Anastomotic sutures in small bowel in the left abdomen with mild edema in the adjacent mesentery; consistent with recent postoperative changes.Otherwise, unremarkable appearance of the large and small bowel.Status post hysterectomy.Cystic foci in the right adnexal is unchanged when compared to the previous exam.No evidence of acute appendicitis.No pneumoperitoneum.No significant fluid collection.No adenopathy.No acute osseous abnormality.Mild to moderate multilevel degenerative disc disease without vertebral body height loss.Linear edema in the subcutaneous tissues of the anterior abdominal wall are consistent with the sequela of recent surgical intervention.IMPRESSION1. No acute intra-abdominal abnormality detected.2. Sliding-type hiatal hernia.3. Diffuse fatty infiltration of the liver.4. Nonobstructing 4 mm left nephrolith.5. Colonic diverticulosis without diverticulitis.6. Cystic foci in the right adnexal is unchanged when compared to the previous exam. Pelvic ultrasound is recommended for follow-up based on the patient's age.Electronically signed by: Juancho Morrison (Apr 15, 2021 20:25:37)
[2021-04-15] MEDS: LIPITOR TAB 80 MG PO SCH (20:31)
[2021-04-15] MEDS: THIAMINE HCL INJ IVP SCH (20:32)
[2021-04-15] MEDS: MORPHINE SULFATE INJ 2 MG INJ IVP PRN (20:34)
[2021-04-16] MEDS: NS 1/2 1000 ML IV 1,000 ML IV SCH (02:09)
[2021-04-16] MEDS: ASCORBIC ACID INJ MULTI-DOSE VIAL 1,500 MG in NS 50 ML IV 50 ML IV SCH ×4 (02:10→20:29)
[2021-04-16 05:04] LABS: ABG ALLEN TEST POS; ABG BASE EXCESS 4.7 mmol/L (-2.0-2.0); ABG HCO3 28.2 mmol/L (22-26)
[2021-04-16 05:12] LABS: BASOPHILS % (AUTO) 0.3 % (0.2-1.0); HEMATOCRIT 35.5 % (36.0-47.0); HEMOGLOBIN 12.6 g/dL (12.0-16.0); LYMPHOCYTES # (AUTO) 0.6 X10^3/uL (1.3-2.9); LYMPHOCYTES % (AUTO) 14.5 % (21.0-51.0); MEAN CORPUSCULAR HEMOGLOBIN 30.2 pg (27.0-34.0); MEAN CORPUSCULAR HGB CONC 35.3 g/dL (33.0-35.0); MEAN CORPUSCULAR VOLUME 85.6 fL (80.0-100.0); MEAN PLATELET VOLUME 8.7 fL (7.4-11.0); MONOCYTES # (AUTO) 0.3 x10^3/uL (0.3-0.8); MONOCYTES % (AUTO) 7.6 % (0.0-13.0); NEUTROPHILS # (AUTO) 3.3 x10^3/uL (2.2-4.8); NEUTROPHILS % (AUTO) 77.6 % (42.0-75.0); PLATELET COUNT 220 X10^3/uL (150.0-450.0); RED BLOOD COUNT 4.15 X10^6/uL (3.5-5.4); RED CELL DISTRIBUTION WIDTH 13.9 % (11.6-16.5); WHITE BLOOD COUNT 4.2 X10^3/uL (3.6-10.0)
[2021-04-16] MEDS: TESSALON PERLES PO SCH ×3 (05:17→21:25)
[2021-04-16] MEDS: SOLU-Medrol 40 MG VIAL IVP SCH ×3 (05:17→21:20)
[2021-04-16 05:32] LABS: ALBUMIN 2.4 g/dL (3.4-5.0); CALCIUM 8.2 mg/dL (8.5-10.1); CARBON DIOXIDE 27.4 mmol/L (21-32); COR CA(FOR HYPOALB) 9.5 mg/dL (8.5-10.1); CREATININE 2.07 mg/dL (0.55-1.02); TOTAL PROTEIN 6.2 g/dL (6.4-8.2)
[2021-04-16] MEDS: ACCUNEB 1.25 MG NEBULE NEB SCH ×4 (05:35→21:04)
[2021-04-16] MEDS ORDERED: KLOR-CON PO PRN (06:06)
[2021-04-16] MEDS ORDERED: POTASSIUM CHL 60 MEQ/NS 0.45% 500 ML IV PRN (06:06)
[2021-04-16] MEDS ORDERED: POTASSIUM CHLORIDE LIQ 20 MEQ UDC PO PRN (06:06)
[2021-04-16] MEDS ORDERED: POTASSIUM CHL 40 MEQ/NS 0.45% 500 ML IV PRN (06:06)
[2021-04-16] MEDS ORDERED: MAGNESIUM SULFATE 1 GRAM/100 mL PREMIX 1 G/100 ML BAG IV PRN (06:06)
[2021-04-16] MEDS ORDERED: K-DUR TAB 20 MEQ PO PRN (06:06)
[2021-04-16] MEDS ORDERED: MICRO K EXTEN CAP 10 MEQ PO PRN (06:06)
--- NOTE | 2021-04-16 06:38 | RAD ---
HISTORYSOBSTUDYCHEST, 1 [id number]/18/2021.TECHNIQUEAP view of the chestFINDINGSCardiac and mediastinal contours are within normal limits. There are near diffuse bilateral hazy and interstitial pulmonary opacities. No definite pleural effusion or pneumothorax.IMPRESSIONBilateral hazy and interstitial pulmonary opacities may represent pulmonary edema or pneumonia.Electronically signed by: Ranjan Bang (Apr 16, 2021 06:36:49)
[2021-04-16] MEDS: PULMICORT NEB TX 0.5 MG NEB SCH ×3 (09:00→21:05)
--- NOTE | 2021-04-16 09:17 | DR.PROGNOT ---
Hospital Progress Notes - Progress Note for Day of: Progress Note Date: 04/16/21 - Past Medical Family Social History Past Med/Fam/Surg Hx: No changes since H&P Allergies: Allergies acetaminophen [From Darvocet-N] Allergy (Verified 04/03/20 09:40) aspirin Allergy (Verified 04/15/21 08:39) gelatin Allergy (Verified 03/24/21 17:34) oxycodone [From Percocet] Allergy (Verified 04/15/21 08:39) propoxyphene [From Darvocet-N] Allergy (Verified 04/03/20 09:40) - Review Of Systems ROS: No change since H&P - Vital Signs Vital Signs: Temperature 98.3 F Pulse Rate 69 Respiratory Rate 21 Blood Pressure [Right Arm] 122/58 Blood Pressure 116/58 O2 Sat by Pulse Oximetry 74 - Physical Exam Oriented: Normal Eyes: Normal Ear: Normal Nose: Normal Throat: Normal Respiratory: Normal Cardiovascular: Normal GI:Auscultation: Decreased GI: Tenderness: Diffuse (soft, flat abdomen with mild diffuse tenderness .) Speech Pattern: Clear, Appropriate - Laboratory and Diagnostics Result Diagrams: 04/16/21 04:39 04/16/21 04:39 Labs: Laboratory WBC 4.2 X10^3/uL (3.6-10.0) 04/16/21 04:39 RBC 4.15 X10^6/uL (3.5-5.4) 04/16/21 04:39 Hgb 12.6 g/dL (12.0-16.0) 04/16/21 04:39 Hct 35.5 % (36.0-47.0) L 04/16/21 04:39 MCV 85.6 fL (80.0-100.0) 04/16/21 04:39 MCH 30.2 pg (27.0-34.0) 04/16/21 04:39 MCHC 35.3 g/dL (33.0-35.0) H 04/16/21 04:39 RDW 13.9 % (11.6-16.5) 04/16/21 04:39 Plt Count 220 X10^3/uL (150.0-450.0) 04/16/21 04:39 MPV 8.7 fL (7.4-11.0) 04/16/21 04:39 Neut % (Auto) 77.6 % (42.0-75.0) H 04/16/21 04:39 Lymph % (Auto) 14.5 % (21.0-51.0) L 04/16/21 04:39 [place] % (Auto) 7.6 % (0.0-13.0) 04/16/21 04:39 Eos % (Auto) 0.0 % (0.9-2.9) L 04/16/21 04:39 Baso % (Auto) 0.3 % (0.2-1.0) 04/16/21 04:39 Neut # (Auto) 3.3 x10^3/uL (2.2-4.8) 04/16/21 04:39 Lymph # (Auto) 0.6 X10^3/uL (1.3-2.9) L 04/16/21 04:39 [place] # (Auto) 0.3 x10^3/uL (0.3-0.8) 04/16/21 04:39 Eos # (Auto) 0.0 x10^3/uL (0.0-0.2) 04/16/21 04:39 Baso # (Auto) 0.0 X10^3/uL (0.0-0.1) 04/16/21 04:39 Absolute Nucleated RBC 0.1 /100WBC 04/16/21 04:39 PT 14.3 SECONDS (11.8-14.3) 04/15/21 08:45 INR Target Range - 04/15/21 08:45 INR 1.17 (0.8-1.3) 04/15/21 08:45 APTT 33.7 SECONDS (22.9-36.5) 04/15/21 08:45 PTT Comment - 04/15/21 08:45 D-Dimer 1.13 ug/ml (0.0-0.57) H* 04/15/21 08:45 Sample Site Rrad 04/16/21 05:00 ABG pH 7.490 (7.35-7.45) H 04/16/21 05:00 ABG pCO2 37.0 mmHg (35.0-45.0) 04/16/21 05:00 ABG pO2 49.0 mmHg (80.0-100.0) L* 04/16/21 05:00 ABG HCO3 28.2 mmol/L (22-26) H 04/16/21 05:00 ABG O2 Saturation 88.0 % (90-100) L 04/16/21 05:00 ABG Base Excess 4.7 mmol/L (-2.0-2.0) H 04/16/21 05:00 Jonathan Test Pos 04/16/21 05:00 A-a Gradient 133.0 mmHg 04/16/21 05:00 FiO2 32.0 04/16/21 05:00 Blood Gas Comments Estevan well mts 04/16/21 05:00 Sodium 137 mmol/L (136-145) 04/16/21 04:39 Corrected Sodium 139 mmol/L (136-145) 04/16/21 04:39 Potassium 3.1 mmol/L (3.5-5.1) L 04/16/21 04:39 Chloride 99 mmol/L (98-107) 04/16/21 04:39 Carbon Dioxide 27.4 mmol/L (21-32) 04/16/21 04:39 BUN 58 mg/dL (7-18) H 04/16/21 04:39 Creatinine 2.07 mg/dL (0.55-1.02) H 04/16/21 04:39 Est GFR (MDRD) Af Amer 30 (>60) L 04/16/21 04:39 Est GFR (MDRD) Non-Af 25 (>60) L 04/16/21 04:39 Glucose 181 mg/dL (65-99) H 04/16/21 04:39 Lactic Acid 2.3 mmol/L (0.4-2.0) H 04/15/21 08:45 Calcium 8.2 mg/dL (8.5-10.1) L 04/16/21 04:39 Corrected Calcium 9.5 mg/dL (8.5-10.1) 04/16/21 04:39 Magnesium 2.1 mg/dL (1.7-2.9) 04/16/21 04:39 Ferritin 1726 ng/mL (8-252) H 04/15/21 08:45 Total Bilirubin 0.70 mg/dL (0.2-1.0) 04/16/21 04:39 AST 47 Units/L (15-37) H 04/16/21 04:39 ALT 19 Units/L (12-78) 04/16/21 04:39 Alkaline Phosphatase 32 Units/L (46-116) L 04/16/21 04:39 Creatine Kinase 89 Units/L (26-192) 04/15/21 08:45 CK-MB (CK-2) < 1.0 ng/mL (0-4.0) 04/15/21 08:45 CK/CKMB % Calc 1.1 % (<4) 04/15/21 08:45 Troponin I < 0.02 ng/mL (0-1.5) 04/15/21 08:45 C-Reactive Protein 35.00 mg/L (0-3.0) H 04/16/21 04:39 B-Natriuretic Peptide 111 pg/mL (0-79) H 04/16/21 04:39 Total Protein 6.2 g/dL (6.4-8.2) L 04/16/21 04:39 Albumin 2.4 g/dL (3.4-5.0) L 04/16/21 04:39 Globulin 3.8 g/dL (2.5-4.5) 04/16/21 04:39 Albumin/Globulin Ratio 0.6 Ratio (1.1-2.1) L 04/16/21 04:39 SARS-CoV-2 (PCR) Positive (NEGATIVE) A 04/15/21 08:44 Influenza Type A (PCR) Negative (NEGATIVE) 04/15/21 08:44 Influenza Type B (PCR) Negative (NEGATIVE) 04/15/21 08:44 RSV (PCR) Negative (NEGATIVE) 04/15/21 08:44 - Assessment and Plan 1: Covid 19 . dehydration . severe nausea . recent small bowel resection for isolated perforated small bowel . ( no malignancy , IBD , or ischemia ). suggest not to use slow release K supplements .. - Problem Patient Problems: Patient Problems Nausea & vomiting (Acute) R11.2 COVID-19 (Acute) U07.1 Azotemia (Acute) R79.89 Hypoxemia (Acute) R09.02
[2021-04-16] MEDS: ZINC SULFATE PO SCH (09:57)
[2021-04-16] MEDS: DIFLUCAN PO SCH (09:57)
[2021-04-16] MEDS: NS 1/2 + KCL 20 MEQ/L 1,000 ML IV SCH ×2 (09:58→20:30)
[2021-04-16] MEDS: THIAMINE HCL INJ IVP SCH ×2 (09:59→20:30)
[2021-04-16] MEDS: VITAMIN D3 125 mcg (5,000 UNITS) PO SCH (09:59)
[2021-04-16] MEDS: IVERMECTIN PO SCH (10:00)
[2021-04-16] MEDS: PROTONIX INJ 40 MG VIAL IVP SCH ×2 (10:00→20:31)
[2021-04-16] MEDS: REMDESIVIR 100 MG in NS 250 ML IV 250 ML IV SCH (10:00)
[2021-04-16] MEDS: PEPCID TAB 20 MG PO SCH (10:00)
[2021-04-16] MEDS: LOVENOX INJ 30 MG SYR SC SCH (10:41)
--- NOTE | 2021-04-16 10:50 | DR.H&P ---
H&P - History & Physical for Day of: H&P Date: 04/15/21 - Chief Complaint Chief Complaint: NAUSEA AND VOMITING, SHORTNESS OF BREATH, AND DECREASED OXYGEN SATURATIONS - History of Present Illness History of Present Illness: IS A 75 YEAR OLD WHITE FEMALE. SHE PRESENTED TO THE ER WITH COMPLAINTS OF NAUSEA AND VOMITING, SHORTNESS OF BREATH, AND DECREASED OXYGEN SATURATIONS. SYMPTOMS STARTED ABOUT 10 DAYS AGO. SHE ADMITS TO A COLECTOMY ON 03/22/21 DUE TO PERFORATED COLON. PROCEDURE WAS DONE BY . HER PMH INCLUDES: DYSLIPIDEMIA, HTN, BOWEL RESECTION, HYSTERECTOMY, AND TONSILLECTOMY. AUSCULTATION OF BILATERAL LUNG BROTHERS REVEALED DIMINISHED LUNG SOUNDS THROUGHOUT. ON ARRIVAL TO THE ER, VITALS WERE 99.0-84-20-62%-106/54. SHE WAS PLACED ON OXYGEN VIA NASAL CANNULA AT 4LPM. SATURATIONS INCREASED TO 94%. LABS WERE OBTAINED. ABNORMAL LAB VALUES INCLUDED THE FOLLOWING: D-DIMER 1.13, SODIUM 135, POTASSIUM 3.3, CHLORIDE 94, BUN 66, CREATININE 2.95, GLUCOSE 135, LACTIC ACID 2.3, TOTAL BILI 1.10, AST 61, ALK PHOS 40, ALBUMIN 3.0, CRP 45.50, FERRITIN 1726. COVID-19 POSITIVE. AN ABG WAS OBTAINED AND REVEALED: PH 7.530, PC02 35, P02 36, HC03 29.2, 02 SAT 77, BASE EXCESS 6.4, A-A GRADIENT 70, FI02 21.0. BLOOD CULTURES WERE SET UP. AN ABDOMINAL SERIES WAS OBTAINED AND REVEALED: UNREMARKABLE ACUTE ABDOMINAL SERIES. EKG REVEALED: SINUS RHYTHM WITH HR 80. AN ABDOMEN/PELVIS CT WITHOUT CONTRAST WAS OBTAINED AND REVEALED: 1. No ac amrita intra-abdominal abnormality detected. 2. Sliding-type hiatal hernia. 3. Diffuse fatty infiltration of the liver. 4. Nonobstructing 4 mm left nephrolith. 5. Colonic diverticulosis without diverticulitis. 6. Cystic foci in the right adnexal is unchanged when compared to the previous exam. Pelvic ultrasound is recommended for follow-up based on the patient's age. 7. Hazy bilateral airspace opacities in the lower lobes with smooth interlobular and interlobular septal thickening. Findings could represent cardiogenic or pulmonary edema. Atypical/viral infectious process could also less likely be considered. IN THE ER, SHE WAS GIVEN A NORMAL SALINE BOLUS, LEVAQUIN 500MG IV X 1. SHE WAS ADMITTED TO THE HOSPITAL FOR FURTHER EVALUATION AND TREATMENT OF PNEUMONIA DUE TO COVID- 19, HYPOXIA, NAUSEA/VOMITING, AZOTEMIA, AND ABDOMINAL PAIN. SHE WAS STARTED ON 1/2NS WITH 20MEQ KCL AT 75 ML/HR, LEVAQUIN 500MG IV DAILY, REMDESIVIR 100MG IV DAILY, ASCORBIC ACID 1500MG IV Q6H, ALBUTEROL NEBS TID, PULMICORT NEBS BID, SOLU-MEDROL 80MG IV Q8H, ZOFRAN 4MG IV Q6H PRN, LOVENOX 30MG SC Q12H, LIPITOR 80MG PO HS, TESSALON PERLES 200MG PO TID, IVERMECTIN, PEPCID 20MG PO DAILY, ROBITUSSIN DM 10ML PO QID PRN, HUMULIN R SLIDING SCALE, MORPHINE SULFATE 2MG IV Q4H PRN, FLUCONAZOLE 100MG PO DAILY, PROTONIX 40MG IV BID, THIAMINE 200MG IV BID, ZINC SULFATE 220MG PO DAILY. OTHERWISE, WE PLAN TO FOLLOW UP WITH AM LABS AND CHEST XRAY AND CONTINUE TO MONITOR. WE WILL ALSO OBTAIN AN ECHO. TIME SPENT ON CLINICAL ASSESSMENT, REVIEWING LABS AND IMAGING, DECISION MAKING, AND DOCUMENTATION GREATER THAN 75 MINUTES. - Past Medical History Past Medical History: Hypertension, Dyslipidemia - Past Surgical History Surgical History: Bowel Resection, Hysterectomy, Ortho Surgery, Tonsillectomy - Family History Family Medical History: Cancer, Coronary Artery Disease, Hypertension - Social History Does patient currently use any type of tobacco product: No Have you used tobacco products in the last 12 months: No Type of Tobacco Use: None Does any household member use tobacco: No Alcohol Use: None Drug Use: None - Medications Home Medications: acetaminophen [From Darvocet-N] Allergy (Verified 04/03/20 09:40) aspirin Allergy (Verified 04/15/21 08:39) gelatin Allergy (Verified 03/24/21 17:34) oxycodone [From Percocet] Allergy (Verified 04/15/21 08:39) propoxyphene [From Darvocet-N] Allergy (Verified 04/03/20 09:40) - Review of Systems Constitutional: Weakness Eyes: No Symptoms Reported ENT: No Symptoms Reported Respiratory: Shortness of Breath Cardiovascular: No Symptoms Reported Gastrointestinal: See HPI, Nausea, Vomiting, Abdominal Pain Genitourinary: No Symptoms Reported Musculoskeletal: No Symptoms Reported Skin: No Symptoms Reported Neurological: Weakness - Physical Exam Vital Signs: Temperature 98.3 F Pulse Rate 69 Respiratory Rate 21 Blood Pressure [Right Arm] 122/58 Blood Pressure 116/58 O2 Sat by Pulse Oximetry 74 Oriented: Normal Eyes: Normal Ear: Normal Nose: Normal Throat: Normal Respiratory: Diminished Throughout Cardiovascular: Normal : Normal Auscultation: Bowel Sounds: Normal Palpation: Normal Tenderness: Normal Skin: Normal Musculoskeletal: Normal Psychiatric: Normal Mood Description: Calm Affect: Normal Speech Pattern: Clear - Assessment/Plan (1) Pneumonia due to COVID-19 virus Status: Acute Plan: ADMIT, SUPPLEMENTAL OXYGEN, 1/2NS WITH 20MEQ KCL AT 75 ML/HR, LEVAQUIN 500MG IV DAILY, REMDESIVIR 100MG IV DAILY, ASCORBIC ACID 1500MG IV Q6H, ALBUTEROL NEBS TID, PULMICORT NEBS BID, SOLU-MEDROL 80MG IV Q8H, ZOFRAN 4MG IV Q6H PRN, LOVENOX 30MG SC Q12H, LIPITOR 80MG PO HS, TESSALON PERLES 200MG PO TID, IVERMECTIN, PEPCID 20MG PO DAILY, ROBITUSSIN DM 10ML PO QID PRN, HUMULIN R SLIDI NG SCALE, MORPHINE SULFATE 2MG IV Q4H PRN, FLUCONAZOLE 100MG PO DAILY, PROTONIX 40MG IV BID, THIAMINE 200MG IV BID, ZINC SULFATE 220MG PO DAILY. (2) Hypoxia Status: Acute (3) Nausea & vomiting Qualifiers: Vomiting type: unspecified Vomiting Intractability: non-intractable Qualified Code(s): R11.2 - Nausea with vomiting, unspecified Status: Acute (4) Azotemia Status: Acute - Allergies Allergies/Adverse Reactions: Allergies Allergy/AdvReac Type Severity Reaction Status Date / Time acetaminophen Allergy Verified 04/03/20 09:40 [From Darvocet-N] aspirin Allergy Verified 04/15/21 08:39 gelatin Allergy Verified 03/24/21 17:34 oxycodone [From Percocet] Allergy Verified 04/15/21 08:39 propoxyphene Allergy Verified 04/03/20 09:40 [From Darvocet-N]
--- NOTE | 2021-04-16 11:24 | PCM.PROG ---
Progress Note - Progress Note for Day of Date of Exam: 04/16/21 - Subjective Subjective: MS. BRASWELL WAS ADMITTED FOR TREATMENT OF COVID PNEUMONIA, HYPOXIA, NAUSEA/VOMITING, AND AZOTEMIA. TODAY, SHE IS ALERT AND ORIENTED, SITTING UP IN THE BED ON MORNING ROUNDS. SHE HAD BEEN ON NASAL CANNULA THROUGHOUT THE NIGHT, HOWEVER, SATURATIONS DROPPED TO 74% THIS MORNING AND SHE WAS PLACED ON HEATED HIGH FLOW OXYGEN. SHE CONTINUES WITH COMPLAINTS OF SHORTNESS OF BREATH, NAUSEA/VOMITING, AND WEAKNESS TODAY. NO SIGNIFICANT IMPROVEMENT IN SYMPTOMS TODAY. ON EXAMINATION, HEART IS REGULAR IN RATE AND RHYTHM. BILATERAL LUNGS ARE NOTED WITH WHEEZING THROUGHOUT. ABDOMEN IS ROUND, SOFT, AND NON-TENDER WITH NORMAL BOWEL SOUNDS NOTED IN ALL QUADRANTS. HIS VITALS THIS MORNING ARE: 98.3-69-21-74%-116/58. LABS WERE OBTAINED. ABNORMAL LAB VALUES INCLUDE THE FOLLOWING: HCT 35.5, POTASSIUM 3.1, BUN 58, CREATININE 2.07, GLUCOSE 181, CALCIUM 8.2, AST 47, ALK PHOS 32, CRP 35, BNP 111, TOTAL PROTEIN 6.2, ALBUMIN 2.4. BLOOD CULTURES ARE PENDING. ABG REVEALED: PH 7.490, PC02 37, P02 49, HC03 28.2, 02 SAT 88, A-A GRADIENT 133, FI02 32. A CHEST XRAY WAS OBTAINED AND REVEALED: Bilateral hazy and interstitial pulmonary opacities may represent pulmonary edema or pneumonia. SHE IS CURRENTLY RECEIVING 1/2NS WITH 20MEQ KCL AT 75 ML/HR, LEVAQUIN 500MG IV DAILY, REMDESIVIR 100MG IV DAILY, ASCORBIC ACID 1 500MG IV Q6H, ALBUTEROL NEBS TID, PULMICORT NEBS BID, SOLU-MEDROL 80MG IV Q8H, ZOFRAN 4MG IV Q6H PRN, LOVENOX 30MG SC Q12H, LIPITOR 80MG PO HS, TESSALON PERLES 200MG PO TID, IVERMECTIN, PEPCID 20MG PO DAILY, ROBITUSSIN DM 10ML PO QID PRN, HUMULIN R SLIDING SCALE, MORPHINE SULFATE 2MG IV Q4H PRN, FLUCONAZOLE 100MG PO DAILY, PROTONIX 40MG IV BID, THIAMINE 200MG IV BID, ZINC SULFATE 220MG PO DAILY. WE WILL CONTINUE WITH CURRENT PLAN OF CARE TODAY. OTHERWISE, WE WILL FOLLOW UP WITH AM LABS, CHEST XRAY, ABG, AND CONTINUE TO MONITOR. TIME SPENT ON CLINICAL ASSESSMENT, REVIEWING LABS AND IMAGING, DECISION MAKING, AND DOCUMENTATION GREATER THAN 45 MINUTES. - Past Medical Family Social History Past Med/Fam/Surg Hx: No changes since H&P Allergies: Allergies acetaminophen [From Darvocet-N] Allergy (Verified 04/03/20 09:40) aspirin Allergy (Verified 04/15/21 08:39) gelatin Allergy (Verified 03/24/21 17:34) oxycodone [From Percocet] Allergy (Verified 04/15/21 08:39) propoxyphene [From Darvocet-N] Allergy (Verified 04/03/20 09:40) - Review of Systems ROS: No change since H&P - Vital Signs and I&O's Vital Signs: Temperature 98.3 F Pulse Rate 69 Respiratory Rate 22 Blood Pressure [Right Arm] 122/58 Blood Pressure 116/58 O2 Sat by Pulse Oximetry 74 Intake and Output: Intake & Output 04/13/21 04/14/21 04/15/21 04/16/21 11:59 11:59 11:59 11:59 Intake Total 2333 / 2333 Balance 2333 / 2333 - Physical Exam Oriented: Normal Eyes: Normal Ear: Normal Nose: Normal Throat: Normal Respiratory: Normal, Diminished Cardiovascular: Normal : Normal Auscultation: Bowel Sounds: Normal Palpation: Normal Tenderness: Normal Skin: Normal Musculoskeletal: Normal Psychiatric: Normal Mood Description: Calm Affect: Normal Speech Pattern: Clear - Laboratory and Diagnostics Result Diagrams: 04/16/21 04:39 04/16/21 04:39 Labs: Laboratory WBC 4.2 X10^3/uL (3.6-10.0) 04/16/21 04:39 RBC 4.15 X10^6/uL (3.5-5.4) 04/16/21 04:39 Hgb 12.6 g/dL (12.0-16.0) 04/16/21 04:39 Hct 35.5 % (36.0-47.0) L 04/16/21 04:39 MCV 85.6 fL (80.0-100.0) 04/16/21 04:39 MCH 30.2 pg (27.0-34.0) 04/16/21 04:39 MCHC 35.3 g/dL (33.0-35.0) H 04/16/21 04:39 RDW 13.9 % (11.6-16.5) 04/16/21 04:39 Plt Count 220 X10^3/uL (150.0-450.0) 04/16/21 04:39 MPV 8.7 fL (7.4-11.0) 04/16/21 04:39 Neut % (Auto) 77.6 % (42.0-75.0) H 04/16/21 04:39 Lymph % (Auto) 14.5 % (21.0-51.0) L 04/16/21 04:39 [place] % (Auto) 7.6 % (0.0-13.0) 04/16/21 04:39 Eos % (Auto) 0.0 % (0.9-2.9) L 04/16/21 04:39 Baso % (Auto) 0.3 % (0.2-1.0) 04/16/21 04:39 Neut # (Auto) 3.3 x10^3/uL (2.2-4.8) 04/16/21 04:39 Lymph # (Auto) 0.6 X10^3/uL (1.3-2.9) L 04/16/21 04:39 [place] # (Auto) 0.3 x10^3/uL (0.3-0.8) 04/16/21 04:39 Eos # (Auto) 0.0 x10^3/uL (0.0-0.2) 04/16/21 04:39 Baso # (Auto) 0.0 X10^3/uL (0.0-0.1) 04/16/21 04:39 Absolute Nucleated RBC 0.1 /100WBC 04/16/21 04:39 PT 14.3 SECONDS (11.8-14.3) 04/15/21 08:45 INR Target Range - 04/15/21 08:45 INR 1.17 (0.8-1.3) 04/15/21 08:45 APTT 33.7 SECONDS (22.9-36.5) 04/15/21 08:45 PTT Comment - 04/15/21 08:45 D-Dimer 1.13 ug/ml (0.0-0.57) H* 04/15/21 08:45 Sample Site Rrad 04/16/21 05:00 ABG pH 7.490 (7.35-7.45) H 04/16/21 05:00 ABG pCO2 37.0 mmHg (35.0-45.0) 04/16/21 05:00 ABG pO2 49.0 mmHg (80.0-100.0) L* 04/16/21 05:00 ABG HCO3 28.2 mmol/L (22-26) H 04/16/21 05:00 ABG O2 Saturation 88.0 % (90-100) L 04/16/21 05:00 ABG Base Excess 4.7 mmol/L (-2.0-2.0) H 04/16/21 05:00 Jonathan Test Pos 04/16/21 05:00 A-a Gradient 133.0 mmHg 04/16/21 05:00 FiO2 32.0 04/16/21 05:00 Blood Gas Comments Estevan well mts 04/16/21 05:00 Sodium 137 mmol/L (136-145) 04/16/21 04:39 Corrected Sodium 139 mmol/L (136-145) 04/16/21 04:39 Potassium 3.1 mmol/L (3.5-5.1) L 04/16/21 04:39 Chloride 99 mmol/L (98-107) 04/16/21 04:39 Carbon Dioxide 27.4 mmol/L (21-32) 04/16/21 04:39 BUN 58 mg/dL (7-18) H 04/16/21 04:39 Creatinine 2.07 mg/dL (0.55-1.02) H 04/16/21 04:39 Est GFR (MDRD) Af Amer 30 (>60) L 04/16/21 04:39 Est GFR (MDRD) Non-Af 25 (>60) L 04/16/21 04:39 Glucose 181 mg/dL (65-99) H 04/16/21 04:39 Lactic Acid 2.3 mmol/L (0.4-2.0) H 04/15/21 08:45 Calcium 8.2 mg/dL (8.5-10.1) L 04/16/21 04:39 Corrected Calcium 9.5 mg/dL (8.5-10.1) 04/16/21 04:39 Magnesium 2.1 mg/dL (1.7-2.9) 04/16/21 04:39 Ferritin 1726 ng/mL (8-252) H 04/15/21 08:45 Total Bilirubin 0.70 mg/dL (0.2-1.0) 04/16/21 04:39 AST 47 Units/L (15-37) H 04/16/21 04:39 ALT 19 Units/L (12-78) 04/16/21 04:39 Alkaline Phosphatase 32 Units/L (46-116) L 04/16/21 04:39 Creatine Kinase 89 Units/L (26-192) 04/15/21 08:45 CK-MB (CK-2) < 1.0 ng/mL (0-4.0) 04/15/21 08:45 CK/CKMB % Calc 1.1 % (<4) 04/15/21 08:45 Troponin I < 0.02 ng/mL (0-1.5) 04/15/21 08:45 C-Reactive Protein 35.00 mg/L (0-3.0) H 04/16/21 04:39 B-Natriuretic Peptide 111 pg/mL (0-79) H 04/16/21 04:39 Total Protein 6.2 g/dL (6.4-8.2) L 04/16/21 04:39 Albumin 2.4 g/dL (3.4-5.0) L 04/16/21 04:39 Globulin 3.8 g/dL (2.5-4.5) 04/16/21 04:39 Albumin/Globulin Ratio 0.6 Ratio (1.1-2.1) L 04/16/21 04:39 SARS-CoV-2 (PCR) Positive (NEGATIVE) A 04/15/21 08:44 Influenza Type A (PCR) Negative (NEGATIVE) 04/15/21 08:44 Influenza Type B (PCR) Negative (NEGATIVE) 04/15/21 08:44 RSV (PCR) Negative (NEGATIVE) 04/15/21 08:44 - Plan (1) Pneumonia due to COVID-19 virus Status: Acute Plan: SUPPLEMENTAL OXYGEN, 1/2NS WITH 20MEQ KCL AT 75 ML/HR, LEVAQUIN 500MG IV DAILY, REMDESIVIR 100MG IV DAILY, ASCORBIC ACID 1500MG IV Q6H, ALBUTEROL NEBS TID, PULMICORT NEBS BID, SOLU-MEDROL 80MG IV Q8H, ZOFRAN 4MG IV Q6H PRN, LOVENOX 30MG SC Q12H, LIPITOR 80MG PO HS, TESSALON PERLES 200MG PO TID, IVERMECTIN, PEPCID 20MG PO DAILY, ROBITUSSIN DM 10ML PO QID PRN, HUMULIN R SLIDING SCALE, MORPHINE SULFATE 2MG IV Q4H PRN, FLUCONAZOLE 100MG PO DAILY, PROTONIX 40MG IV BID, THIAMINE 200MG IV BID, ZINC SULFATE 220MG PO DAILY. (2) Hypoxia Status: Acute (3) Nausea & vomiting Status: Acute Qualifiers: Vomiting type: unspecified Vomiting Intractability: non-intractable Qualified Code(s): R11.2 - Nausea with vomiting, unspecified (4) Azotemia Status: Acute
[2021-04-16] MEDS: TIMOPTIC 0.5% EYE DROPS OP SCH (14:40)
[2021-04-16] MEDS: ZOFRAN INJ 4 MG VIAL IVP PRN (18:00)
[2021-04-16] MEDS: SNACK - Diabetic Appropriate PO SCH (20:00)
[2021-04-16] MEDS: XALATAN OP SCH (20:30)
[2021-04-16] MEDS: LIPITOR TAB 80 MG PO SCH (20:30)
[2021-04-17] MEDS: NS 1/2 + KCL 20 MEQ/L 1,000 ML IV SCH ×2 (00:07→12:54)
[2021-04-17] MEDS: ZOFRAN INJ 4 MG VIAL IVP PRN ×3 (02:07→22:32)
[2021-04-17] MEDS: MORPHINE SULFATE INJ 2 MG INJ IVP PRN ×3 (02:14→22:32)
[2021-04-17] MEDS: ASCORBIC ACID INJ MULTI-DOSE VIAL 1,500 MG in NS 50 ML IV 50 ML IV SCH ×4 (03:35→20:37)
[2021-04-17 04:54] LABS: BASOPHILS % (AUTO) 0.4 % (0.2-1.0); HEMATOCRIT 34.2 % (36.0-47.0); HEMOGLOBIN 12.4 g/dL (12.0-16.0); LYMPHOCYTES # (AUTO) 0.8 X10^3/uL (1.3-2.9); LYMPHOCYTES % (AUTO) 9.4 % (21.0-51.0); MEAN CORPUSCULAR HEMOGLOBIN 30.6 pg (27.0-34.0); MEAN CORPUSCULAR HGB CONC 36.1 g/dL (33.0-35.0); MEAN CORPUSCULAR VOLUME 84.8 fL (80.0-100.0); MEAN PLATELET VOLUME 8.7 fL (7.4-11.0); MONOCYTES # (AUTO) 0.6 x10^3/uL (0.3-0.8); MONOCYTES % (AUTO) 7.2 % (0.0-13.0); PLATELET COUNT 240 X10^3/uL (150.0-450.0); RED BLOOD COUNT 4.03 X10^6/uL (3.5-5.4); RED CELL DISTRIBUTION WIDTH 14.2 % (11.6-16.5); WHITE BLOOD COUNT 8.4 X10^3/uL (3.6-10.0)
[2021-04-17 05:02] LABS: ALBUMIN 2.3 g/dL (3.4-5.0); CALCIUM 7.7 mg/dL (8.5-10.1); CARBON DIOXIDE 28.3 mmol/L (21-32); COR CA(FOR HYPOALB) 9.1 mg/dL (8.5-10.1); CREATININE 1.81 mg/dL (0.55-1.02); TOTAL PROTEIN 5.8 g/dL (6.4-8.2)
[2021-04-17 05:14] LABS: ABG BASE EXCESS 6.9 mmol/L (-2.0-2.0)
[2021-04-17 05:15] LABS: ABG ALLEN TEST POS; ABG HCO3 30.3 mmol/L (22-26)
[2021-04-17] MEDS: TESSALON PERLES PO SCH ×3 (05:30→22:50)
[2021-04-17] MEDS: SOLU-Medrol 40 MG VIAL IVP SCH ×3 (05:30→22:50)
[2021-04-17] MEDS: ACCUNEB 1.25 MG NEBULE NEB SCH ×3 (05:44→21:07)
--- NOTE | 2021-04-17 06:18 | RAD ---
HISTORYFollow-up COVID-19STUDYChest AP [id number] t size remains normal. Latoya are normal. Aorta is calcified. Lungs remain hypoinflated. Diffuse bilateral interstitial and ground-glass infiltrates are unchanged considering a difference in film technique. No pleural effusion, pneumothorax identified. Bony thorax is unremarkable.IMPRESSIONNo significant change from the prior examinationElectronically signed by: DEAN KNIGHT (Apr 17, 2021 06:16:19)
[2021-04-17] MEDS: PULMICORT NEB TX 0.5 MG NEB SCH ×2 (08:00→21:07)
--- NOTE | 2021-04-17 08:22 | DR.PROGNOT ---
Hospital Progress Notes - Progress Note for Day of: Progress Note Date: 04/17/21 - Chief Complaint Chief Complaint: still c/o moderate RT side abdominal pain and nausea .. no vomiting. poor appetite . CBC is normal. BUN and Creat are improving . afebrile . - Past Medical Family Social History Past Med/Fam/Surg Hx: No changes since H&P Allergies: Allergies acetaminophen [From Darvocet-N] Allergy (Verified 04/03/20 09:40) aspirin Allergy (Verified 04/15/21 08:39) gelatin Allergy (Verified 03/24/21 17:34) oxycodone [From Percocet] Allergy (Verified 04/15/21 08:39) propoxyphene [From Darvocet-N] Allergy (Verified 04/03/20 09:40) - Review Of Systems ROS: No change since H&P - Vital Signs Vital Signs: Temperature 97.9 F Pulse Rate 70 Respiratory Rate 26 Blood Pressure [Right Arm] 122/58 Blood Pressure 145/65 O2 Sat by Pulse Oximetry 94 - Physical Exam Oriented: Normal Eyes: Normal Ear: Normal Nose: Normal Throat: Normal Respiratory: Normal, Diminished Cardiovascular: Normal : Normal GI:Auscultation: Normal GI:Palpation: Normal GI: Tenderness: LLQ, Other (soft abdomen with RT side tenderness , no rebound .. BS + but hypoactive .) Skin: Normal Musculoskeletal: Normal Psychiatric: Normal Mood Description: Calm Affect: Normal Speech Pattern: Clear, Appropriate - Laboratory and Diagnostics Result Diagrams: 04/17/21 04:14 04/17/21 04:14 Labs: Laboratory WBC 8.4 X10^3/uL (3.6-10.0) 04/17/21 04:14 RBC 4.03 X10^6/uL (3.5-5.4) 04/17/21 04:14 Hgb 12.4 g/dL (12.0-16.0) 04/17/21 04:14 Hct 34.2 % (36.0-47.0) L 04/17/21 04:14 MCV 84.8 fL (80.0-100.0) 04/17/21 04:14 MCH 30.6 pg (27.0-34.0) 04/17/21 04:14 MCHC 36.1 g/dL (33.0-35.0) H 04/17/21 04:14 RDW 14.2 % (11.6-16.5) 04/17/21 04:14 Plt Count 240 X10^3/uL (150.0-450.0) 04/17/21 04:14 MPV 8.7 fL (7.4-11.0) 04/17/21 04:14 Neut % (Auto) 83.0 % (42.0-75.0) H 04/17/21 04:14 Lymph % (Auto) 9.4 % (21.0-51.0) L 04/17/21 04:14 [place] % (Auto) 7.2 % (0.0-13.0) 04/17/21 04:14 Eos % (Auto) 0.0 % (0.9-2.9) L 04/17/21 04:14 Baso % (Auto) 0.4 % (0.2-1.0) 04/17/21 04:14 Neut # (Auto) 7.0 x10^3/uL (2.2-4.8) H 04/17/21 04:14 Lymph # (Auto) 0.8 X10^3/uL (1.3-2.9) L 04/17/21 04:14 [place] # (Auto) 0.6 x10^3/uL (0.3-0.8) 04/17/21 04:14 Eos # (Auto) 0.0 x10^3/uL (0.0-0.2) 04/17/21 04:14 Baso # (Auto) 0.0 X10^3/uL (0.0-0.1) 04/17/21 04:14 Absolute Nucleated RBC 0.1 /100WBC 04/17/21 04:14 PT 14.3 SECONDS (11.8-14.3) 04/15/21 08:45 INR Target Range - 04/15/21 08:45 INR 1.17 (0.8-1.3) 04/15/21 08:45 APTT 33.7 SECONDS (22.9-36.5) 04/15/21 08:45 PTT Comment - 04/15/21 08:45 D-Dimer 1.13 ug/ml (0.0-0.57) H* 04/15/21 08:45 Sample Site Rr 04/17/21 05:00 ABG pH 7.510 (7.35-7.45) H 04/17/21 05:00 ABG pCO2 38.0 mmHg (35.0-45.0) 04/17/21 05:00 ABG pO2 54.0 mmHg (80.0-100.0) L 04/17/21 05:00 ABG HCO3 30.3 mmol/L (22-26) H* 04/17/21 05:00 ABG O2 Saturation 91.0 % (90-100) 04/17/21 05:00 ABG Base Excess 6.9 mmol/L (-2.0-2.0) H 04/17/21 05:00 Jonathan Test Pos 04/17/21 05:00 A-a Gradient 212.0 mmHg 04/17/21 05:00 FiO2 44 04/17/21 05:00 Blood Gas Comments Estevan well sw 04/17/21 05:00 Sodium 138 mmol/L (136-145) 04/17/21 04:14 Corrected Sodium 140 mmol/L (136-145) 04/17/21 04:14 Potassium 3.2 mmol/L (3.5-5.1) L 04/17/21 04:14 Chloride 100 mmol/L (98-107) 04/17/21 04:14 Carbon Dioxide 28.3 mmol/L (21-32) 04/17/21 04:14 BUN 49 mg/dL (7-18) H 04/17/21 04:14 Creatinine 1.81 mg/dL (0.55-1.02) H 04/17/21 04:14 Est GFR (MDRD) Af Amer 35 (>60) L 04/17/21 04:14 Est GFR (MDRD) Non-Af 29 (>60) L 04/17/21 04:14 Glucose 163 mg/dL (65-99) H 04/17/21 04:14 Lactic Acid 2.3 mmol/L (0.4-2.0) H 04/15/21 08:45 Calcium 7.7 mg/dL (8.5-10.1) L 04/17/21 04:14 Corrected Calcium 9.1 mg/dL (8.5-10.1) 04/17/21 04:14 Magnesium 2.2 mg/dL (1.7-2.9) 04/17/21 04:14 Ferritin 1726 ng/mL (8-252) H 04/15/21 08:45 Total Bilirubin 0.70 mg/dL (0.2-1.0) 04/17/21 04:14 AST 49 Units/L (15-37) H 04/17/21 04:14 ALT 17 Units/L (12-78) 04/17/21 04:14 Alkaline Phosphatase 34 Units/L (46-116) L 04/17/21 04:14 Creatine Kinase 89 Units/L (26-192) 04/15/21 08:45 CK-MB (CK-2) < 1.0 ng/mL (0-4.0) 04/15/21 08:45 CK/CKMB % Calc 1.1 % (<4) 04/15/21 08:45 Troponin I < 0.02 ng/mL (0-1.5) 04/15/21 08:45 C-Reactive Protein 19.90 mg/L (0-3.0) H 04/17/21 04:14 B-Natriuretic Peptide 181 pg/mL (0-79) H 04/17/21 04:14 Total Protein 5.8 g/dL (6.4-8.2) L 04/17/21 04:14 Albumin 2.3 g/dL (3.4-5.0) L 04/17/21 04:14 Globulin 3.5 g/dL (2.5-4.5) 04/17/21 04:14 Albumin/Globulin Ratio 0.7 Ratio (1.1-2.1) L 04/17/21 04:14 SARS-CoV-2 (PCR) Positive (NEGATIVE) A 04/15/21 08:44 Influenza Type A (PCR) Negative (NEGATIVE) 04/15/21 08:44 Influenza Type B (PCR) Negative (NEGATIVE) 04/15/21 08:44 RSV (PCR) Negative (NEGATIVE) 04/15/21 08:44 - Assessment and Plan 1: Covid pveumonia . dehydration and Azotemia. abdominal pain with nausea. recent small bowel resection for isolated perforated small bowel . ( no malignancy , IBD , or ischemia ). same respiratory care and hydration . for GB sonogram . - Problem Patient Problems: Patient Problems Nausea & vomiting (Acute) R11.2 COVID-19 (Acute) U07.1 Azotemia (Acute) R79.89 Hypoxemia (Acute) R09.02 Pneumonia due to COVID-19 virus (Acute) U07.1, J12.82 Hypoxia (Acute) R09.02
[2021-04-17] MEDS: TIMOPTIC 0.5% EYE DROPS OP SCH (08:45)
[2021-04-17] MEDS: PROTONIX INJ 40 MG VIAL IVP SCH ×2 (09:35→20:37)
[2021-04-17] MEDS: LOVENOX INJ 30 MG SYR SC SCH (09:35)
[2021-04-17] MEDS: REMDESIVIR 100 MG in NS 250 ML IV 250 ML IV SCH (09:35)
[2021-04-17] MEDS: THIAMINE HCL INJ IVP SCH ×2 (09:35→20:38)
--- NOTE | 2021-04-17 09:56 | PCM.PROG ---
Progress Note - Progress Note for Day of Date of Exam: 04/17/21 - Subjective Subjective: MS. BRASWELL WAS ADMITTED FOR TREATMENT OF COVID PNEUMONIA, HYPOXIA, NAUSEA/VOMITING, ABDOMINAL PAIN, AND AZOTEMIA. TODAY, SHE IS ALERT AND ORIENTED, LYING IN THE BED ON MORNING ROUNDS. SHE REMAINS ON HEATED HIGH FLOW OXYGEN THIS MORNING. SATURATIONS HAVE BEEN 89-97% THIS MORNING AND THROUGHOUT THE NIGHT. SHE CONTINUES WITH COMPLAINTS OF SHORTNESS OF BREATH, NAUSEA/VOMITING, RIGHT SIDED ABDOMINAL PAIN, AND WEAKNESS TODAY. NO SIGNIFICANT IMPROVEMENT IN SYMPTOMS TODAY. ON EXAMINATION, HEART IS REGULAR IN RATE AND RHYTHM. BILATERAL LUNGS ARE NOTED WITH WHEEZING THROUGHOUT. ABDOMEN IS ROUND, SOFT, AND NOTED WITH RIGHT SIDED TENDERNESS TO PALPATION. NORMAL BOWEL SOUNDS NOTED IN ALL QUADRANTS. HER VITALS THIS MORNING ARE: 97.9-68-26-96%-145/65. LABS WERE OBTAINED. ABNORMAL LAB VALUES INCLUDE THE FOLLOWING: HCT 34.2, POTASSIUM 3.2, BUN 49, CREATININE 1.81, GLUCOSE 163, CALCIUM 7.7, AST 49, ALK PHOS 34, CRP 19.90, BNP 181, TOTAL PROTEIN 5.8, ALBUMIN 2.3. BLOOD CULTURES ARE PENDING. ABG REVEALED: PH 7.510, PC02 38, P02 54, HC03 30.3, 02 SAT 91, BASE EXCESS 6.9, A-A GRADIENT 212, FI02 44. A CHEST XRAY WAS OBTAINED AND REVEALED: Heart size remains normal. Latoya are normal. Aorta is calcified. Lungs remain hypoinflated. Diffuse bilateral interstitial and ground-glass infiltrates are unchanged considering a difference in film technique. No pleural effusion, pneumothorax identified. Bony thorax is unremarkable. SHE IS CURRENTLY RECEIVING 1/2NS WITH 20MEQ KCL AT 75 ML/HR, LEVAQUIN 500MG IV DAILY, REMDESIVIR 100MG IV DAILY, ASCORBIC ACID 1500MG IV Q6H, ALBUTEROL NEBS TID, PULMICORT NEBS BID, SOLU-MEDROL 80MG IV Q8H, ZOFRAN 4MG IV Q6H PRN, LOVENOX 30MG SC Q12H, LIPITOR 80MG PO HS, TESSALON PERLES 200MG PO TID, IVERMECTIN, PEPCID 20MG PO DAILY, ROBITUSSIN DM 10ML PO QID PRN, HUMULIN R SLIDING SCALE, MORPHINE SULFATE 2MG IV Q4H PRN, FLUCONAZOLE 100MG PO DAILY, PROTONIX 40MG IV BID, THIAMINE 200MG IV BID, ZINC SULFATE 220MG PO DAILY. WE WILL CONTINUE WITH CURRENT PLAN OF CARE TODAY. HAS ORDERED A GALLBALDDER ULTRASOUND. OTHERWISE, WE WILL FOLLOW UP WITH AM LABS, CHEST XRAY, ABG, AND CONTINUE TO MONITOR. TIME SPENT ON CLINICAL ASSESSMENT, REVIEWING LABS AND IMAGING, DECISION MAKING, AND DOCUMENTATION GREATER THAN 45 MINUTES. - Past Medical Family Social History Past Med/Fam/Surg Hx: No changes since H&P Allergies: Allergies acetaminophen [From Darvocet-N] Allergy (Verified 04/03/20 09:40) aspirin Allergy (Verified 04/15/21 08:39) gelatin Allergy (Verified 03/24/21 17:34) oxycodone [From Percocet] Allergy (Verified 04/15/21 08:39) propoxyphene [From Darvocet-N] Allergy (Verified 04/03/20 09:40) - Review of Systems ROS: No change since H&P - Vital Signs and I&O's Vital Signs: Temperature 97.9 F Pulse Rate 70 Respiratory Rate 26 Blood Pressure [Right Arm] 122/58 Blood Pressure 145/65 O2 Sat by Pulse Oximetry 94 Intake and Output: Intake & Output 04/14/21 04/15/21 04/16/21 04/17/21 11:59 11:59 11:59 11:59 Intake Total 2333 / 2333 2662 / 2662 Output Total 420 / 420 Balance 2333 / 2333 2242 / 2242 - Physical Exam Oriented: Normal Eyes: Normal Ear: Normal Nose: Normal Throat: Normal Respiratory: Normal, Diminished Cardiovascular: Normal : Normal Auscultation: Bowel Sounds: Normal Tenderness: LLQ, Other (soft abdomen with RT side tenderness , no rebound .. BS + but hypoactive .) Skin: Normal Musculoskeletal: Normal Psychiatric: Normal Mood Description: Calm Affect: Normal Speech Pattern: Clear, Appropriate - Laboratory and Diagnostics Result Diagrams: 04/17/21 04:14 04/17/21 04:14 Labs: Laboratory WBC 8.4 X10^3/uL (3.6-10.0) 04/17/21 04:14 RBC 4.03 X10^6/uL (3.5-5.4) 04/17/21 04:14 Hgb 12.4 g/dL (12.0-16.0) 04/17/21 04:14 Hct 34.2 % (36.0-47.0) L 04/17/21 04:14 MCV 84.8 fL (80.0-100.0) 04/17/21 04:14 MCH 30.6 pg (27.0-34.0) 04/17/21 04:14 MCHC 36.1 g/dL (33.0-35.0) H 04/17/21 04:14 RDW 14.2 % (11.6-16.5) 04/17/21 04:14 Plt Count 240 X10^3/uL (150.0-450.0) 04/17/21 04:14 MPV 8.7 fL (7.4-11.0) 04/17/21 04:14 Neut % (Auto) 83.0 % (42.0-75.0) H 04/17/21 04:14 Lymph % (Auto) 9.4 % (21.0-51.0) L 04/17/21 04:14 [place] % (Auto) 7.2 % (0.0-13.0) 04/17/21 04:14 Eos % (Auto) 0.0 % (0.9-2.9) L 04/17/21 04:14 Baso % (Auto) 0.4 % (0.2-1.0) 04/17/21 04:14 Neut # (Auto) 7.0 x10^3/uL (2.2-4.8) H 04/17/21 04:14 Lymph # (Auto) 0.8 X10^3/uL (1.3-2.9) L 04/17/21 04:14 [place] # (Auto) 0.6 x10^3/uL (0.3-0.8) 04/17/21 04:14 Eos # (Auto) 0.0 x10^3/uL (0.0-0.2) 04/17/21 04:14 Baso # (Auto) 0.0 X10^3/uL (0.0-0.1) 04/17/21 04:14 Absolute Nucleated RBC 0.1 /100WBC 04/17/21 04:14 PT 14.3 SECONDS (11.8-14.3) 04/15/21 08:45 INR Target Range - 04/15/21 08:45 INR 1.17 (0.8-1.3) 04/15/21 08:45 APTT 33.7 SECONDS (22.9-36.5) 04/15/21 08:45 PTT Comment - 04/15/21 08:45 D-Dimer 1.13 ug/ml (0.0-0.57) H* 04/15/21 08:45 Sample Site Rr 04/17/21 05:00 ABG pH 7.510 (7.35-7.45) H 04/17/21 05:00 ABG pCO2 38.0 mmHg (35.0-45.0) 04/17/21 05:00 ABG pO2 54.0 mmHg (80.0-100.0) L 04/17/21 05:00 ABG HCO3 30.3 mmol/L (22-26) H* 04/17/21 05:00 ABG O2 Saturation 91.0 % (90-100) 04/17/21 05:00 ABG Base Excess 6.9 mmol/L (-2.0-2.0) H 04/17/21 05:00 Jonathan Test Pos 04/17/21 05:00 A-a Gradient 212.0 mmHg 04/17/21 05:00 FiO2 44 04/17/21 05:00 Blood Gas Comments Estevan well sw 04/17/21 05:00 Sodium 138 mmol/L (136-145) 04/17/21 04:14 Corrected Sodium 140 mmol/L (136-145) 04/17/21 04:14 Potassium 3.2 mmol/L (3.5-5.1) L 04/17/21 04:14 Chloride 100 mmol/L (98-107) 04/17/21 04:14 Carbon Dioxide 28.3 mmol/L (21-32) 04/17/21 04:14 BUN 49 mg/dL (7-18) H 04/17/21 04:14 Creatinine 1.81 mg/dL (0.55-1.02) H 04/17/21 04:14 Est GFR (MDRD) Af Amer 35 (>60) L 04/17/21 04:14 Est GFR (MDRD) Non-Af 29 (>60) L 04/17/21 04:14 Glucose 163 mg/dL (65-99) H 04/17/21 04:14 Lactic Acid 2.3 mmol/L (0.4-2.0) H 04/15/21 08:45 Calcium 7.7 mg/dL (8.5-10.1) L 04/17/21 04:14 Corrected Calcium 9.1 mg/dL (8.5-10.1) 04/17/21 04:14 Magnesium 2.2 mg/dL (1.7-2.9) 04/17/21 04:14 Ferritin 1726 ng/mL (8-252) H 04/15/21 08:45 Total Bilirubin 0.70 mg/dL (0.2-1.0) 04/17/21 04:14 AST 49 Units/L (15-37) H 04/17/21 04:14 ALT 17 Units/L (12-78) 04/17/21 04:14 Alkaline Phosphatase 34 Units/L (46-116) L 04/17/21 04:14 Creatine Kinase 89 Units/L (26-192) 04/15/21 08:45 CK-MB (CK-2) < 1.0 ng/mL (0-4.0) 04/15/21 08:45 CK/CKMB % Calc 1.1 % (<4) 04/15/21 08:45 Troponin I < 0.02 ng/mL (0-1.5) 04/15/21 08:45 C-Reactive Protein 19.90 mg/L (0-3.0) H 04/17/21 04:14 B-Natriuretic Peptide 181 pg/mL (0-79) H 04/17/21 04:14 Total Protein 5.8 g/dL (6.4-8.2) L 04/17/21 04:14 Albumin 2.3 g/dL (3.4-5.0) L 04/17/21 04:14 Globulin 3.5 g/dL (2.5-4.5) 04/17/21 04:14 Albumin/Globulin Ratio 0.7 Ratio (1.1-2.1) L 04/17/21 04:14 SARS-CoV-2 (PCR) Positive (NEGATIVE) A 04/15/21 08:44 Influenza Type A (PCR) Negative (NEGATIVE) 04/15/21 08:44 Influenza Type B (PCR) Negative (NEGATIVE) 04/15/21 08:44 RSV (PCR) Negative (NEGATIVE) 04/15/21 08:44 - Plan (1) Pneumonia due to COVID-19 virus Status: Acute Plan: SUPPLEMENTAL OXYGEN, 1/2NS WITH 20MEQ KCL AT 75 ML/HR, LEVAQUIN 500MG IV DAILY, REMDESIVIR 100MG IV DAILY, ASCORBIC ACID 1500MG IV Q6H, ALBUTEROL NEBS TID, PULMICORT NEBS BID, SOLU-MEDROL 80MG IV Q8H, ZOFRAN 4MG IV Q6H PRN, LOVENOX 30MG SC Q12H, LIPITOR 80MG PO HS, TESSALON PERLES 200MG PO TID, IVERMECTIN, PEPCID 20MG PO DAILY, ROBITUSSIN DM 10ML PO QID PRN, HUMULIN R SLIDING SCALE, MORPHINE SULFATE 2MG IV Q4H PRN, FLUCONAZOLE 100MG PO DAILY, PROTONIX 40MG IV BID, THIAMINE 200MG IV BID, ZINC SULFATE 220MG PO DAILY. (2) Hypoxia Status: Acute (3) Nausea & vomiting Status: Acute Qualifiers: Vomiting type: unspecified Vomiting Intractability: non-intractable Qualified Code(s): R11.2 - Nausea with vomiting, unspecified (4) Azotemia Status: Acute
[2021-04-17] MEDS: LEVAQUIN PREMIX IV 250 MG 250 MG/50 ML BAG IV SCH (11:50)
--- NOTE | 2021-04-17 13:43 | US ---
Ultrasound abdomenIndication: Nausea and vomiting. COVID-19 infection. Hypoxemia and azotemia.Technique: Dynamic grayscale, color spectral Doppler imaging through the abdomen.[email or web address] sonogram.FINDINGSVisualized pancreas appears grossly normal. Liver is echogenic. IVC is normal. Hepatic veins are patent. Portal vein is normal. Hepatic artery is patent. The liver is 16 centimeters in length. Gallbladder wall thickness is 3 millimeters. Common bile duct is 3 millimeters in AP dimension. Sludge is seen in the gallbladder. Right kidney is 10.8 centimeters in length.IMPRESSION1. Gallbladder sludge without acute cholecystitis2. Mildly echogenic liver suggesting hepatic steatosis.Electronically signed by: BJ ANDREW (Apr 17, 2021 13:41:19)
[2021-04-17] MEDS: DIFLUCAN PO SCH (14:54)
[2021-04-17] MEDS: IVERMECTIN PO SCH (14:54)
[2021-04-17] MEDS: VITAMIN D3 125 mcg (5,000 UNITS) PO SCH (14:55)
[2021-04-17] MEDS: PEPCID TAB 20 MG PO SCH (14:55)
[2021-04-17] MEDS: ZINC SULFATE PO SCH (14:55)
[2021-04-17] MEDS ORDERED: PREPARATION H OINT RECTAL PRN (18:08)
[2021-04-17] MEDS: LIPITOR TAB 80 MG PO SCH (20:37)
[2021-04-17] MEDS: XALATAN OP SCH (20:38)
[2021-04-17] MEDS: K-RIDER 10 MEQ/NS 100 ML 10 MEQ/100 ML BAG IV PRN (22:15)
[2021-04-18] MEDS: K-RIDER 10 MEQ/NS 100 ML 10 MEQ/100 ML BAG IV PRN (01:25)
[2021-04-18] MEDS: NS 1/2 + KCL 20 MEQ/L 1,000 ML IV SCH ×3 (01:25→14:02)
[2021-04-18] MEDS: ASCORBIC ACID INJ MULTI-DOSE VIAL 1,500 MG in NS 50 ML IV 50 ML IV SCH ×4 (04:00→20:53)
[2021-04-18 05:10] LABS: ABG ALLEN TEST POS; ABG BASE EXCESS 6.2 mmol/L (-2.0-2.0); ABG HCO3 29.5 mmol/L (22-26)
[2021-04-18 05:12] LABS: BASOPHILS # (AUTO) 0.1 X10^3/uL (0.0-0.1); BASOPHILS % (AUTO) 0.7 % (0.2-1.0); EOSINOPHILS # (AUTO) 0.1 x10^3/uL (0.0-0.2); EOSINOPHILS % (AUTO) 0.9 % (0.9-2.9); HEMATOCRIT 34.4 % (36.0-47.0); HEMOGLOBIN 11.9 g/dL (12.0-16.0); LYMPHOCYTES # (AUTO) 0.7 X10^3/uL (1.3-2.9); LYMPHOCYTES % (AUTO) 5.6 % (21.0-51.0); MEAN CORPUSCULAR HEMOGLOBIN 29.7 pg (27.0-34.0); MEAN CORPUSCULAR HGB CONC 34.6 g/dL (33.0-35.0); MEAN CORPUSCULAR VOLUME 85.7 fL (80.0-100.0); MEAN PLATELET VOLUME 8.2 fL (7.4-11.0); MONOCYTES # (AUTO) 0.4 x10^3/uL (0.3-0.8); MONOCYTES % (AUTO) 3.4 % (0.0-13.0); NEUTROPHILS # (AUTO) 10.5 x10^3/uL (2.2-4.8); NEUTROPHILS % (AUTO) 89.4 % (42.0-75.0); PLATELET COUNT 255 X10^3/uL (150.0-450.0); RED BLOOD COUNT 4.01 X10^6/uL (3.5-5.4); RED CELL DISTRIBUTION WIDTH 14.4 % (11.6-16.5); WHITE BLOOD COUNT 11.7 X10^3/uL (3.6-10.0)
[2021-04-18] MEDS: ACCUNEB 1.25 MG NEBULE NEB SCH ×3 (05:23→21:01)
[2021-04-18 05:24] LABS: ALBUMIN 2.4 g/dL (3.4-5.0); CALCIUM 7.6 mg/dL (8.5-10.1); CARBON DIOXIDE 30.4 mmol/L (21-32); COR CA(FOR HYPOALB) 8.9 mg/dL (8.5-10.1); CREATININE 1.83 mg/dL (0.55-1.02); TOTAL PROTEIN 5.7 g/dL (6.4-8.2)
[2021-04-18] MEDS: SOLU-Medrol 40 MG VIAL IVP SCH ×3 (05:34→22:37)
[2021-04-18] MEDS: TESSALON PERLES PO SCH ×3 (05:35→22:37)
[2021-04-18 05:36] LABS: METAMYELOCYTES % 4; PLATELET MORPHOLOGY COMMENT NORMAL (NORMAL)
[2021-04-18] MEDS: PEPCID TAB 20 MG PO SCH (08:32)
[2021-04-18] MEDS: DIFLUCAN PO SCH (08:32)
[2021-04-18] MEDS: LOVENOX INJ 30 MG SYR SC SCH (08:32)
[2021-04-18] MEDS: IVERMECTIN PO SCH (08:32)
[2021-04-18] MEDS: PROTONIX INJ 40 MG VIAL IVP SCH ×2 (08:33→20:54)
[2021-04-18] MEDS: ZINC SULFATE PO SCH (08:33)
[2021-04-18] MEDS: TIMOPTIC 0.5% EYE DROPS OP SCH (08:33)
[2021-04-18] MEDS: REMDESIVIR 100 MG in NS 250 ML IV 250 ML IV SCH (08:33)
[2021-04-18] MEDS: THIAMINE HCL INJ IVP SCH ×2 (08:33→20:54)
[2021-04-18] MEDS: VITAMIN D3 125 mcg (5,000 UNITS) PO SCH (08:33)
--- NOTE | 2021-04-18 09:34 | RAD ---
HISTORYSOB HX: HTN SX: HYSTERECTOMY, BOWEL RESECTION, ORTHOSTUDYCHEST, 1 [id number]/2021FINDINGSCardiac silhouette is normal in size. Diffuse bilateral interstitial and alveolar opacities appear overall unchanged since prior. No significant pleural effusion is identified. No pneumothorax.IMPRESSIONStable chest exam.Electronically signed by: NATALIE ESTRELLA (Apr 18, 2021 09:32:05)
[2021-04-18] MEDS ORDERED: PROCTOZONE HC CRM 2.5% (ANUSOL-HC) TOP PRN (09:48)
[2021-04-18] MEDS: PULMICORT NEB TX 0.5 MG NEB SCH ×2 (10:21→21:01)
[2021-04-18 10:48] LABS: CKMB % 2.1 % (<4); CREATINE KINASE 121 Units/L (26-192); CREATINE KINASE MB 2.5 ng/mL (0-4.0); TROPONIN I < 0.02 ng/mL (0-1.5)
[2021-04-18] MEDS: ZOFRAN INJ 4 MG VIAL IVP PRN (13:27)
[2021-04-18] MEDS: MORPHINE SULFATE INJ 2 MG INJ IVP PRN ×2 (13:53→22:38)
[2021-04-18] MEDS: XALATAN OP SCH (20:53)
[2021-04-18] MEDS: LIPITOR TAB 80 MG PO SCH (20:54)
[2021-04-19] MEDS: NS 1/2 + KCL 20 MEQ/L 1,000 ML IV SCH ×2 (02:15→18:03)
[2021-04-19] MEDS: ASCORBIC ACID INJ MULTI-DOSE VIAL 1,500 MG in NS 50 ML IV 50 ML IV SCH ×4 (04:27→20:10)
[2021-04-19 04:47] LABS: BASOPHILS % (AUTO) 0.1 % (0.2-1.0); HEMATOCRIT 33.6 % (36.0-47.0); LYMPHOCYTES # (AUTO) 0.5 X10^3/uL (1.3-2.9); LYMPHOCYTES % (AUTO) 4.1 % (21.0-51.0); MEAN CORPUSCULAR HEMOGLOBIN 30.3 pg (27.0-34.0); MEAN CORPUSCULAR HGB CONC 35.5 g/dL (33.0-35.0); MEAN CORPUSCULAR VOLUME 85.1 fL (80.0-100.0); MEAN PLATELET VOLUME 8.5 fL (7.4-11.0); MONOCYTES # (AUTO) 0.8 x10^3/uL (0.3-0.8); MONOCYTES % (AUTO) 5.9 % (0.0-13.0); NEUTROPHILS # (AUTO) 11.8 x10^3/uL (2.2-4.8); NEUTROPHILS % (AUTO) 89.9 % (42.0-75.0); PLATELET COUNT 262 X10^3/uL (150.0-450.0); RED BLOOD COUNT 3.95 X10^6/uL (3.5-5.4); WHITE BLOOD COUNT 13.1 X10^3/uL (3.6-10.0)
[2021-04-19 04:59] LABS: ALBUMIN 2.2 g/dL (3.4-5.0); CALCIUM 7.5 mg/dL (8.5-10.1); CARBON DIOXIDE 29.4 mmol/L (21-32); COR CA(FOR HYPOALB) 8.9 mg/dL (8.5-10.1); CREATININE 1.53 mg/dL (0.55-1.02); TOTAL PROTEIN 5.4 g/dL (6.4-8.2)
[2021-04-19] MEDS: SOLU-Medrol 40 MG VIAL IVP SCH ×3 (05:15→21:24)
[2021-04-19] MEDS: TESSALON PERLES PO SCH ×3 (05:16→21:23)
[2021-04-19 05:32] LABS: ABG BASE EXCESS 8.8 mmol/L (-2.0-2.0)
[2021-04-19 05:33] LABS: ABG HCO3 32.7 mmol/L (22-26)
[2021-04-19 05:34] LABS: ABG ALLEN TEST POS
[2021-04-19] MEDS: MORPHINE SULFATE INJ 2 MG INJ IVP PRN (05:45)
--- NOTE | 2021-04-19 06:32 | RAD ---
HISTORYSOB HX: HTN SX: HYSTERECTOMY, BOWEL RESECTION, ORTHOSTUDYCHEST, 1 [id number]/2021FINDINGSCardiac silhouette is normal in size. There are diffuse bilateral interstitial and alveolar opacities, which given differences in technique appear essentially stable since prior. No significant pleural effusion is identified. No pneumothorax.IMPRESSIONStable chest exam.Electronically signed by: NATALIE ESTRELLA (Apr 19, 2021 06:30:53)
[2021-04-19] MEDS: PULMICORT NEB TX 0.5 MG NEB SCH ×2 (08:30→21:23)
[2021-04-19] MEDS: PROTONIX INJ 40 MG VIAL IVP SCH ×2 (08:58→20:10)
[2021-04-19] MEDS: PEPCID TAB 20 MG PO SCH (08:58)
[2021-04-19] MEDS: THIAMINE HCL INJ IVP SCH ×2 (08:58→20:10)
[2021-04-19] MEDS: DIFLUCAN PO SCH (08:58)
[2021-04-19] MEDS: IVERMECTIN PO SCH (08:58)
[2021-04-19] MEDS: ZINC SULFATE PO SCH (08:59)
[2021-04-19] MEDS: LOVENOX INJ 30 MG SYR SC SCH ×2 (08:59→20:11)
[2021-04-19] MEDS: VITAMIN D3 125 mcg (5,000 UNITS) PO SCH (08:59)
[2021-04-19] MEDS: TIMOPTIC 0.5% EYE DROPS OP SCH (08:59)
[2021-04-19] MEDS: LEVAQUIN PREMIX IV 250 MG 250 MG/50 ML BAG IV SCH (09:02)
[2021-04-19] MEDS: REMDESIVIR 100 MG in NS 250 ML IV 250 ML IV SCH (10:19)
[2021-04-19] MEDS: TORADOL 30 MG VIAL IVP PRN ×2 (11:09→20:27)
[2021-04-19] MEDS: ZOFRAN INJ 4 MG VIAL IVP PRN (11:10)
[2021-04-19 11:57] LABS: ABG BASE EXCESS 7.5 mmol/L (-2.0-2.0)
[2021-04-19 11:59] LABS: ABG HCO3 31.1 mmol/L (22-26)
[2021-04-19 12:00] LABS: ABG ALLEN TEST pos
[2021-04-19] MEDS: BENICAR TAB 40 MG PO SCH (12:27)
[2021-04-19] MEDS: NS + KCL 20 MEQ/L 1,000 ML IV SCH (12:27)
[2021-04-19] MEDS: ACCUNEB 1.25 MG NEBULE NEB SCH ×2 (13:20→21:23)
[2021-04-19] MEDS: XALATAN OP SCH (20:10)
[2021-04-19] MEDS: LIPITOR TAB 80 MG PO SCH (20:11)
[2021-04-20] MEDS ORDERED: APRESOLINE INJ 20 MG VIAL IVP PRN (00:38)
[2021-04-20] MEDS ORDERED: CATAPRES TAB 0.1 MG PO PRN (00:39)
[2021-04-20] MEDS: TORADOL 30 MG VIAL IVP PRN (01:34)
[2021-04-20] MEDS: NS + KCL 20 MEQ/L 1,000 ML IV SCH ×3 (03:00→16:05)
[2021-04-20] MEDS: ASCORBIC ACID INJ MULTI-DOSE VIAL 1,500 MG in NS 50 ML IV 50 ML IV SCH ×4 (03:01→20:24)
--- NOTE | 2021-04-20 05:35 | RAD ---
HISTORYSOB HX: HTN SX: HYSTERECTOMY, BOWEL RESECTION, ORTHOSTUDYCHEST, 1 [id number]/2021FINDINGSThe trachea is midline. The cardiac silhouette is unremarkable. Diffuse bilateral interstitial and alveolar opacities unchanged. No pneumothorax. The bony thorax is unremarkable.IMPRESSIONStable portable chestElectronically signed by: Kj Mathias (Apr 20, 2021 05:33:38)
[2021-04-20] MEDS: TESSALON PERLES PO SCH ×3 (05:57→21:33)
[2021-04-20] MEDS: SOLU-Medrol 40 MG VIAL IVP SCH ×3 (05:57→21:33)
[2021-04-20 06:13] LABS: ABG ALLEN TEST POS; ABG HCO3 27.8 mmol/L (22-26)
[2021-04-20 06:15] LABS: BASOPHILS % (AUTO) 0.1 % (0.2-1.0); HEMATOCRIT 34.2 % (36.0-47.0); HEMOGLOBIN 12.1 g/dL (12.0-16.0); LYMPHOCYTES # (AUTO) 0.5 X10^3/uL (1.3-2.9); LYMPHOCYTES % (AUTO) 3.5 % (21.0-51.0); MEAN CORPUSCULAR HEMOGLOBIN 30.3 pg (27.0-34.0); MEAN CORPUSCULAR HGB CONC 35.3 g/dL (33.0-35.0); MEAN CORPUSCULAR VOLUME 85.7 fL (80.0-100.0); MEAN PLATELET VOLUME 8.2 fL (7.4-11.0); MONOCYTES # (AUTO) 0.6 x10^3/uL (0.3-0.8); MONOCYTES % (AUTO) 4.8 % (0.0-13.0); NEUTROPHILS # (AUTO) 12.1 x10^3/uL (2.2-4.8); NEUTROPHILS % (AUTO) 91.6 % (42.0-75.0); PLATELET COUNT 225 X10^3/uL (150.0-450.0); RED CELL DISTRIBUTION WIDTH 13.9 % (11.6-16.5); WHITE BLOOD COUNT 13.2 X10^3/uL (3.6-10.0)
[2021-04-20 06:27] LABS: ALBUMIN 2.3 g/dL (3.4-5.0); CALCIUM 7.5 mg/dL (8.5-10.1); CARBON DIOXIDE 26.4 mmol/L (21-32); COR CA(FOR HYPOALB) 8.9 mg/dL (8.5-10.1); CREATININE 2.02 mg/dL (0.55-1.02); TOTAL PROTEIN 5.2 g/dL (6.4-8.2)
[2021-04-20] MEDS: ACCUNEB 1.25 MG NEBULE NEB SCH ×3 (06:30→21:21)
[2021-04-20 06:58] LABS: BAND NEUTROPHILS % 3 % (0-10)
[2021-04-20 06:59] LABS: BURR CELLS SLIGHT; PLATELET MORPHOLOGY COMMENT NORMAL (NORMAL)
[2021-04-20] MEDS: PROTONIX INJ 40 MG VIAL IVP SCH ×2 (08:15→20:25)
[2021-04-20] MEDS: PEPCID TAB 20 MG PO SCH (08:16)
[2021-04-20] MEDS: ZINC SULFATE PO SCH (08:16)
[2021-04-20] MEDS: THIAMINE HCL INJ IVP SCH ×2 (08:16→20:25)
[2021-04-20] MEDS: DIFLUCAN PO SCH (08:17)
[2021-04-20] MEDS: TIMOPTIC 0.5% EYE DROPS OP SCH (08:21)
[2021-04-20] MEDS: LOVENOX INJ 30 MG SYR SC SCH ×2 (08:21→20:24)
[2021-04-20] MEDS: IVERMECTIN PO SCH (08:21)
[2021-04-20] MEDS: BENICAR TAB 40 MG PO SCH (08:21)
[2021-04-20] MEDS: VITAMIN D3 125 mcg (5,000 UNITS) PO SCH (08:22)
[2021-04-20] MEDS: PULMICORT NEB TX 0.5 MG NEB SCH ×2 (09:05→21:21)
--- NOTE | 2021-04-20 10:33 | PCM.PROG ---
Progress Note - Progress Note for Day of Date of Exam: 04/20/21 - Subjective Subjective: MS. BRASWELL WAS ADMITTED FOR TREATMENT OF COVID PNEUMONIA, HYPOXIA, NAUSEA/VOMITING, ABDOMINAL PAIN, AND AZOTEMIA. TODAY, SHE IS ALERT AND ORIENTED, LYING IN THE BED ON MORNING ROUNDS. SHE REMAINS ON HEATED HIGH FLOW OXYGEN THIS MORNING. SATURATIONS HAVE BEEN IN THE 90s THIS MORNING AND THROUGHOUT THE NIGHT. SHE HAS HAD AN OCCASIONAL DROP TO THE UPPER 80s. SHE CONTINUES WITH COMPLAINTS OF SHORTNESS OF BREATH, NAUSEA/VOMITING, RIGHT SIDED ABDOMINAL PAIN, AND WEAKNESS TODAY. NO SIGNIFICANT IMPROVEMENT IN SYMPTOMS TODAY. ON EXAMINATION, HEART IS REGULAR IN RATE AND RHYTHM. BILATERAL LUNGS ARE NOTED WITH WHEEZING THROUGHOUT. ABDOMEN IS ROUND, SOFT, AND NOTED WITH RIGHT SIDED TENDERNESS TO P ALPATION. NORMAL BOWEL SOUNDS NOTED IN ALL QUADRANTS. HER VITALS THIS MORNING ARE: 97.4-75-27-91%-180/80. LABS WERE OBTAINED. ABNORMAL LAB VALUES INCLUDE THE FOLLOWING: WBC 13.2, HCT 34.2, BUN 50, CREATININE 2.02, GLUCOSE 169, CALCIUM 7.5, AST 66, CRP 9.50, BNP 360, TOTAL PROTEIN 5.2, ALBUMIN 2.3. ABG REVEALED: PH 7.520, PC02 34, P02 51, HC03 27.8, 02 SAT 90, A-A GRADIENT 349, FI02 62. A CHEST XRAY WAS OBTAINED AND REVEALED: The trachea is midline. The cardiac silhouette is unremarkable. Diffuse bilateral interstitial and alveolar opacities unchanged. No pneumothorax. The bony thorax is unremarkable. SHE HAD A GALLBLADDER ULTRASOUND TUESDAY WHICH REVEALED SLUDGE. WE WILL CONTINUE WITH IV FL UIDS, IV ANTIBIOTICS, RESPIRATORY THERAPY, NEB TX, INSULINS, STEROIDS, AND CURRENT PLAN OF CARE TODAY. OTHERWISE, WE WILL FOLLOW UP WITH AM LABS, CHEST XRAY, ABG, AND CONTINUE TO MONITOR. TIME SPENT ON CLINICAL ASSESSMENT, REVIEWING LABS AND IMAGING, DECISION MAKING, AND DOCUMENTATION GREATER THAN 45 MINUTES. - Past Medical Family Social History Past Med/Fam/Surg Hx: No changes since H&P Allergies: Allergies acetaminophen [From Darvocet-N] Allergy (Verified 04/03/20 09:40) aspirin Allergy (Verified 04/15/21 08:39) gelatin Allergy (Verified 03/24/21 17:34) oxycodone [From Percocet] Allergy (Verified 04/15/21 08:39) propoxyphene [From Darvocet-N] Allergy (Verified 04/03/20 09:40) - Review of Systems ROS: No change since H&P - Vital Signs and I&O's Vital Signs: Temperature 97.4 F Pulse Rate 62 Respiratory Rate 23 Blood Pressure [Right Arm] 122/58 Blood Pressure 179/76 O2 Sat by Pulse Oximetry 88 Intake and Output: Intake & Output 04/17/21 04/18/21 04/19/21 04/20/21 11:59 11:59 11:59 11:59 Intake Total 2662 / 2662 3334 / 3334 3300 / 3300 1930 Output Total 420 / 420 400 / 400 Balance 2242 / 2242 2934 / 2934 3300 / 3300 1930 - Physical Exam Oriented: Normal Eyes: Normal Ear: Normal Nose: Normal Throat: Normal Respiratory: Normal, Diminished Cardiovascular: Normal : Normal Auscultation: Bowel Sounds: Normal Tenderness: LLQ, Other (soft abdomen with RT side tenderness , no rebound .. BS + but hypoactive .) Skin: Normal Musculoskeletal: Normal Psychiatric: Normal Mood Description: Calm Affect: Normal Speech Pattern: Clear, Appropriate - Laboratory and Diagnostics Result Diagrams: 04/20/21 05:27 04/20/21 05:27 Labs: 04/15/21 09:00 Blood Blood Culture - Final 04/15/21 09:00 Blood Blood Culture - Final Laboratory WBC 13.2 X10^3/uL (3.6-10.0) H 04/20/21 05:27 RBC 4.00 X10^6/uL (3.5-5.4) 04/20/21 05:27 Hgb 12.1 g/dL (12.0-16.0) 04/20/21 05:27 Hct 34.2 % (36.0-47.0) L 04/20/21 05:27 MCV 85.7 fL (80.0-100.0) 04/20/21 05:27 MCH 30.3 pg (27.0-34.0) 04/20/21 05:27 MCHC 35.3 g/dL (33.0-35.0) H 04/20/21 05:27 RDW 13.9 % (11.6-16.5) 04/20/21 05:27 Plt Count 225 X10^3/uL (150.0-450.0) 04/20/21 05:27 Plt Count Comment Adequate (ADEQUATE) 04/20/21 05:27 MPV 8.2 fL (7.4-11.0) 04/20/21 05:27 Neut % (Auto) 91.6 % (42.0-75.0) H 04/20/21 05:27 Lymph % (Auto) 3.5 % (21.0-51.0) L 04/20/21 05:27 [place] % (Auto) 4.8 % (0.0-13.0) 04/20/21 05:27 Eos % (Auto) 0.0 % (0.9-2.9) L 04/20/21 05:27 Baso % (Auto) 0.1 % (0.2-1.0) L 04/20/21 05:27 Neut # (Auto) 12.1 x10^3/uL (2.2-4.8) H 04/20/21 05:27 Lymph # (Auto) 0.5 X10^3/uL (1.3-2.9) L 04/20/21 05:27 [place] # (Auto) 0.6 x10^3/uL (0.3-0.8) 04/20/21 05:27 Eos # (Auto) 0.0 x10^3/uL (0.0-0.2) 04/20/21 05:27 Baso # (Auto) 0.0 X10^3/uL (0.0-0.1) 04/20/21 05:27 Absolute Nucleated RBC 0.0 /100WBC 04/20/21 05:27 Total Counted 100 04/20/21 05:27 Neutrophils % (Manual) 95 % (39-76) H 04/20/21 05:27 Band Neutrophils % 3 % (0-10) 04/20/21 05:27 Lymphocytes % (Manual) 1 % (13-43) L 04/20/21 05:27 Monocytes % (Manual) 1 % (4-9) L 04/20/21 05:27 Metamyelocytes % 4 04/18/21 04:59 Plt Morphology Comment Normal (NORMAL) 04/20/21 05:27 RBC Morphology Abnormal (NORMAL) A 04/20/21 05:27 [place] Cells Slight A 04/20/21 05:27 PT 14.3 SECONDS (11.8-14.3) 04/15/21 08:45 INR Target Range - 04/15/21 08:45 INR 1.17 (0.8-1.3) 04/15/21 08:45 APTT 33.7 SECONDS (22.9-36.5) 04/15/21 08:45 PTT Comment - 04/15/21 08:45 D-Dimer 1.81 ug/ml (0.0-0.57) H* 04/19/21 04:15 Sample Site Rrad 04/20/21 06:11 ABG pH 7.520 (7.35-7.45) H 04/20/21 06:11 ABG pCO2 34.0 mmHg (35.0-45.0) L 04/20/21 06:11 ABG pO2 51.0 mmHg (80.0-100.0) L 04/20/21 06:11 ABG HCO3 27.8 mmol/L (22-26) H 04/20/21 06:11 ABG O2 Saturation 90.0 % (90-100) 04/20/21 06:11 ABG Base Excess 5.0 mmol/L (-2.0-2.0) H 04/20/21 06:11 Jonathan Test Pos 04/20/21 06:11 A-a Gradient 349.0 mmHg 04/20/21 06:11 FiO2 62.0 04/20/21 06:11 Blood Gas Comments Estevan well mtf/mts 04/20/21 06:11 Sodium 142 mmol/L (136-145) 04/20/21 05:27 Corrected Sodium 144 mmol/L (136-145) 04/20/21 05:27 Potassium 3.6 mmol/L (3.5-5.1) 04/20/21 05:27 Chloride 105 mmol/L (98-107) 04/20/21 05:27 Carbon Dioxide 26.4 mmol/L (21-32) 04/20/21 05:27 BUN 50 mg/dL (7-18) H 04/20/21 05:27 Creatinine 2.02 mg/dL (0.55-1.02) H 04/20/21 05:27 Est GFR (MDRD) Af Amer 31 (>60) L 04/20/21 05:27 Est GFR (MDRD) Non-Af 26 (>60) L 04/20/21 05:27 Glucose 169 mg/dL (65-99) H 04/20/21 05:27 POC Glucose (mg/dL) 155 mg/dL (65-99) H 04/17/21 15:19 Lactic Acid 2.3 mmol/L (0.4-2.0) H 04/15/21 08:45 Calcium 7.5 mg/dL (8.5-10.1) L 04/20/21 05:27 Corrected Calcium 8.9 mg/dL (8.5-10.1) 04/20/21 05:27 Magnesium 2.3 mg/dL (1.7-2.9) 04/19/21 04:15 Ferritin 1726 ng/mL (8-252) H 04/15/21 08:45 Total Bilirubin 0.80 mg/dL (0.2-1.0) 04/20/21 05:27 AST 66 Units/L (15-37) H 04/20/21 05:27 ALT 15 Units/L (12-78) 04/20/21 05:27 Alkaline Phosphatase 71 Units/L (46-116) 04/20/21 05:27 Creatine Kinase 121 Units/L (26-192) 04/18/21 10:10 CK-MB (CK-2) 2.5 ng/mL (0-4.0) 04/18/21 10:10 CK/CKMB % Calc 2.1 % (<4) 04/18/21 10:10 Troponin I < 0.02 ng/mL (0-1.5) 04/18/21 10:10 C-Reactive Protein 9.50 mg/L (0-3.0) H 04/20/21 05:27 B-Natriuretic Peptide 360 pg/mL (0-79) H 04/20/21 05:27 Total Protein 5.2 g/dL (6.4-8.2) L 04/20/21 05:27 Albumin 2.3 g/dL (3.4-5.0) L 04/20/21 05:27 Globulin 2.9 g/dL (2.5-4.5) 04/20/21 05:27 Albumin/Globulin Ratio 0.8 Ratio (1.1-2.1) L 04/20/21 05:27 SARS-CoV-2 (PCR) Positive (NEGATIVE) A 04/15/21 08:44 Influenza Type A (PCR) Negative (NEGATIVE) 04/15/21 08:44 Influenza Type B (PCR) Negative (NEGATIVE) 04/15/21 08:44 RSV (PCR) Negative (NEGATIVE) 04/15/21 08:44 - Plan (1) Pneumonia due to COVID-19 virus Status: Acute Plan: SUPPLEMENTAL OXYGEN, 1/2NS WITH 20MEQ KCL AT 75 ML/HR, LEVAQUIN 500MG IV DAILY, REMDESIVIR 100MG IV DAILY, ASCORBIC ACID 1500MG IV Q6H, ALBUTEROL NEBS TID, PULMICORT NEBS BID, SOLU-MEDROL 80MG IV Q8H, ZOFRAN 4MG IV Q6H PRN, LOVENOX 30MG SC Q12H, LIPITOR 80MG PO HS, TESSALON PERLES 200MG PO TID, IVERMECTIN, PEPCID 20MG PO DAILY, ROBITUSSIN DM 10ML PO QID PRN, HUMULIN R SLIDING SCALE, MORPHINE SULFATE 2MG IV Q4H PRN, FLUCONAZOLE 100MG PO DAILY, PROTONIX 40MG IV BID, THIAMINE 200MG IV BID, ZINC SULFATE 220MG PO DAILY. (2) Hypoxia Status: Acute (3) Nausea & vomiting Status: Acute Qualifiers: Vomiting type: unspecified Vomiting Intractability: non-intractable Qualified Code(s): R11.2 - Nausea with vomiting, unspecified (4) Azotemia Status: Acute
--- NOTE | 2021-04-20 14:50 | DR.PROGNOT ---
Hospital Progress Notes - Progress Note for Day of: Progress Note Date: 04/20/21 - Chief Complaint Chief Complaint: c/o mild RT side abdominal pain and nausea .. no vomiting. poor appetite . WBC 13.2. BUN and Creat are 50/2.02. afebrile . - Past Medical Family Social History Past Med/Fam/Surg Hx: No changes since H&P Allergies: Allergies acetaminophen [From Darvocet-N] Allergy (Verified 04/03/20 09:40) aspirin Allergy (Verified 04/15/21 08:39) gelatin Allergy (Verified 03/24/21 17:34) oxycodone [From Percocet] Allergy (Verified 04/15/21 08:39) propoxyphene [From Darvocet-N] Allergy (Verified 04/03/20 09:40) - Review Of Systems ROS: No change since H&P - Vital Signs Vital Signs: Temperature 97.6 F Pulse Rate 66 Respiratory Rate 22 Blood Pressure [Right Arm] 122/58 Blood Pressure 166/76 O2 Sat by Pulse Oximetry 94 - Physical Exam Oriented: Normal Eyes: Normal Ear: Normal Nose: Normal Throat: Normal Respiratory: Normal, Diminished Cardiovascular: Normal : Normal GI:Auscultation: Normal GI:Palpation: Normal GI: Tenderness: LLQ, Other (soft abdomen with RT side tenderness , no rebound .. BS + but hypoactive .) Skin: Normal Musculoskeletal: Normal Psychiatric: Normal Mood Description: Calm Affect: Normal Speech Pattern: Clear, Appropriate - Laboratory and Diagnostics Result Diagrams: 04/20/21 05:27 04/20/21 05:27 Labs: 04/15/21 09:00 Blood Blood Culture - Final 04/15/21 09:00 Blood Blood Culture - Final Laboratory WBC 13.2 X10^3/uL (3.6-10.0) H 04/20/21 05:27 RBC 4.00 X10^6/uL (3.5-5.4) 04/20/21 05:27 Hgb 12.1 g/dL (12.0-16.0) 04/20/21 05:27 Hct 34.2 % (36.0-47.0) L 04/20/21 05:27 MCV 85.7 fL (80.0-100.0) 04/20/21 05:27 MCH 30.3 pg (27.0-34.0) 04/20/21 05:27 MCHC 35.3 g/dL (33.0-35.0) H 04/20/21 05:27 RDW 13.9 % (11.6-16.5) 04/20/21 05:27 Plt Count 225 X10^3/uL (150.0-450.0) 04/20/21 05:27 Plt Count Comment Adequate (ADEQUATE) 04/20/21 05:27 MPV 8.2 fL (7.4-11.0) 04/20/21 05:27 Neut % (Auto) 91.6 % (42.0-75.0) H 04/20/21 05:27 Lymph % (Auto) 3.5 % (21.0-51.0) L 04/20/21 05:27 [place] % (Auto) 4.8 % (0.0-13.0) 04/20/21 05:27 Eos % (Auto) 0.0 % (0.9-2.9) L 04/20/21 05:27 Baso % (Auto) 0.1 % (0.2-1.0) L 04/20/21 05:27 Neut # (Auto) 12.1 x10^3/uL (2.2-4.8) H 04/20/21 05:27 Lymph # (Auto) 0.5 X10^3/uL (1.3-2.9) L 04/20/21 05:27 [place] # (Auto) 0.6 x10^3/uL (0.3-0.8) 04/20/21 05:27 Eos # (Auto) 0.0 x10^3/uL (0.0-0.2) 04/20/21 05:27 Baso # (Auto) 0.0 X10^3/uL (0.0-0.1) 04/20/21 05:27 Absolute Nucleated RBC 0.0 /100WBC 04/20/21 05:27 Total Counted 100 04/20/21 05:27 Neutrophils % (Manual) 95 % (39-76) H 04/20/21 05:27 Band Neutrophils % 3 % (0-10) 04/20/21 05:27 Lymphocytes % (Manual) 1 % (13-43) L 04/20/21 05:27 Monocytes % (Manual) 1 % (4-9) L 04/20/21 05:27 Metamyelocytes % 4 04/18/21 04:59 Plt Morphology Comment Normal (NORMAL) 04/20/21 05:27 RBC Morphology Abnormal (NORMAL) A 04/20/21 05:27 [place] Cells Slight A 04/20/21 05:27 PT 14.3 SECONDS (11.8-14.3) 04/15/21 08:45 INR Target Range - 04/15/21 08:45 INR 1.17 (0.8-1.3) 04/15/21 08:45 APTT 33.7 SECONDS (22.9-36.5) 04/15/21 08:45 PTT Comment - 04/15/21 08:45 D-Dimer 1.81 ug/ml (0.0-0.57) H* 04/19/21 04:15 Sample Site Rrad 04/20/21 06:11 ABG pH 7.520 (7.35-7.45) H 04/20/21 06:11 ABG pCO2 34.0 mmHg (35.0-45.0) L 04/20/21 06:11 ABG pO2 51.0 mmHg (80.0-100.0) L 04/20/21 06:11 ABG HCO3 27.8 mmol/L (22-26) H 04/20/21 06:11 ABG O2 Saturation 90.0 % (90-100) 04/20/21 06:11 ABG Base Excess 5.0 mmol/L (-2.0-2.0) H 04/20/21 06:11 Jonathan Test Pos 04/20/21 06:11 A-a Gradient 349.0 mmHg 04/20/21 06:11 FiO2 62.0 04/20/21 06:11 Blood Gas Comments Estevan well mtf/mts 04/20/21 06:11 Sodium 142 mmol/L (136-145) 04/20/21 05:27 Corrected Sodium 144 mmol/L (136-145) 04/20/21 05:27 Potassium 3.6 mmol/L (3.5-5.1) 04/20/21 05:27 Chloride 105 mmol/L (98-107) 04/20/21 05:27 Carbon Dioxide 26.4 mmol/L (21-32) 04/20/21 05:27 BUN 50 mg/dL (7-18) H 04/20/21 05:27 Creatinine 2.02 mg/dL (0.55-1.02) H 04/20/21 05:27 Est GFR (MDRD) Af Amer 31 (>60) L 04/20/21 05:27 Est GFR (MDRD) Non-Af 26 (>60) L 04/20/21 05:27 Glucose 169 mg/dL (65-99) H 04/20/21 05:27 POC Glucose (mg/dL) 155 mg/dL (65-99) H 04/17/21 15:19 Lactic Acid 2.3 mmol/L (0.4-2.0) H 04/15/21 08:45 Calcium 7.5 mg/dL (8.5-10.1) L 04/20/21 05:27 Corrected Calcium 8.9 mg/dL (8.5-10.1) 04/20/21 05:27 Magnesium 2.3 mg/dL (1.7-2.9) 04/19/21 04:15 Ferritin 1726 ng/mL (8-252) H 04/15/21 08:45 Total Bilirubin 0.80 mg/dL (0.2-1.0) 04/20/21 05:27 AST 66 Units/L (15-37) H 04/20/21 05:27 ALT 15 Units/L (12-78) 04/20/21 05:27 Alkaline Phosphatase 71 Units/L (46-116) 04/20/21 05:27 Creatine Kinase 121 Units/L (26-192) 04/18/21 10:10 CK-MB (CK-2) 2.5 ng/mL (0-4.0) 04/18/21 10:10 CK/CKMB % Calc 2.1 % (<4) 04/18/21 10:10 Troponin I < 0.02 ng/mL (0-1.5) 04/18/21 10:10 C-Reactive Protein 9.50 mg/L (0-3.0) H 04/20/21 05:27 B-Natriuretic Peptide 360 pg/mL (0-79) H 04/20/21 05:27 Total Protein 5.2 g/dL (6.4-8.2) L 04/20/21 05:27 Albumin 2.3 g/dL (3.4-5.0) L 04/20/21 05:27 Globulin 2.9 g/dL (2.5-4.5) 04/20/21 05:27 Albumin/Globulin Ratio 0.8 Ratio (1.1-2.1) L 04/20/21 05:27 SARS-CoV-2 (PCR) Positive (NEGATIVE) A 04/15/21 08:44 Influenza Type A (PCR) Negative (NEGATIVE) 04/15/21 08:44 Influenza Type B (PCR) Negative (NEGATIVE) 04/15/21 08:44 RSV (PCR) Negative (NEGATIVE) 04/15/21 08:44 - Assessment and Plan 1: Covid pveumonia . dehydration and Azotemia. abdominal pain with nausea . chronic cholecystitis . recent small bowel resection for isolated perforated small bowel . ( no malignancy , IBD , or ischemia ). same respiratory care and hydration . - Problem Patient Problems: Patient Problems Nausea & vomiting (Acute) R11.2 COVID-19 (Acute) U07.1 Azotemia (Acute) R79.89 Hypoxemia (Acute) R09.02 Pneumonia due to COVID-19 virus (Acute) U07.1, J12.82 Hypoxia (Acute) R09.02
[2021-04-20] MEDS ORDERED: BENICAR TAB 40 MG PO ONE (16:49)
[2021-04-20] MEDS: LIPITOR TAB 80 MG PO SCH (20:24)
[2021-04-20] MEDS: XALATAN OP SCH (20:41)
[2021-04-20 21:58] LABS: CALCIUM 7.1 mg/dL (8.5-10.1); CARBON DIOXIDE 29.4 mmol/L (21-32); CKMB % 1.6 % (<4); CREATINE KINASE MB 3.4 ng/mL (0-4.0); CREATININE 1.91 mg/dL (0.55-1.02); TROPONIN I 0.1 ng/mL (0-1.5)
[2021-04-20] MEDS ORDERED: LR 1000 ML IV 1,000 ML IV ONE (22:22)
[2021-04-21 00:56] LABS: BILIRUBIN,URINE NEGATIVE (NEGATIVE); BLOOD/HEMOGLOBIN,URINE 1+ (NEGATIVE); GLUCOSE, URINE 1+ (NEGATIVE); KETONES,URINE NEGATIVE (NEGATIVE); LEUKOCYTE ESTERASE ,URINE NEGATIVE (NEGATIVE); NITRITES,URINE NEGATIVE (NEGATIVE); PROTEIN,URINE 1+ (NEGATIVE); UROBILINOGEN,URINE NORMAL (NORMAL)
[2021-04-21 01:06] LABS: APPEARANCE,URINE CLEAR (CLEAR); COLOR,URINE YELLOW (YELLOW)
[2021-04-21 01:07] LABS: BACTERIA,URINE NEGATIVE /HPF (NEGATIVE); RBC,URINE NONE SEEN /HPF (0-3); SQUAMOUS EPITHELIAL CELL,UR NEGATIVE /HPF (NEGATIVE)
[2021-04-21] MEDS: ASCORBIC ACID INJ MULTI-DOSE VIAL 1,500 MG in NS 50 ML IV 50 ML IV SCH ×4 (02:27→20:20)
[2021-04-21] MEDS: NS + KCL 20 MEQ/L 1,000 ML IV SCH ×3 (04:03→22:31)
[2021-04-21] MEDS ORDERED: VALIUM ONE (04:08)
[2021-04-21] MEDS: VALIUM PO PRN ×3 (04:41→20:12)
[2021-04-21] MEDS: TORADOL 30 MG VIAL IVP PRN (04:42)
[2021-04-21 04:46] LABS: ABG BASE EXCESS 5.5 mmol/L (-2.0-2.0); ABG HCO3 28.7 mmol/L (22-26)
[2021-04-21 04:47] LABS: ABG ALLEN TEST POS
[2021-04-21 05:10] LABS: BASOPHILS # (AUTO) 0.3 X10^3/uL (0.0-0.1); BASOPHILS % (AUTO) 1.9 % (0.2-1.0); EOSINOPHILS # (AUTO) 0.2 x10^3/uL (0.0-0.2); HEMATOCRIT 33.3 % (36.0-47.0); HEMOGLOBIN 11.8 g/dL (12.0-16.0); LYMPHOCYTES # (AUTO) 0.7 X10^3/uL (1.3-2.9); LYMPHOCYTES % (AUTO) 4.2 % (21.0-51.0); MEAN CORPUSCULAR HEMOGLOBIN 30.4 pg (27.0-34.0); MEAN CORPUSCULAR HGB CONC 35.4 g/dL (33.0-35.0); MEAN CORPUSCULAR VOLUME 85.8 fL (80.0-100.0); MEAN PLATELET VOLUME 8.4 fL (7.4-11.0); MONOCYTES # (AUTO) 0.3 x10^3/uL (0.3-0.8); MONOCYTES % (AUTO) 1.5 % (0.0-13.0); NEUTROPHILS # (AUTO) 15.8 x10^3/uL (2.2-4.8); NEUTROPHILS % (AUTO) 91.4 % (42.0-75.0); PLATELET COUNT 231 X10^3/uL (150.0-450.0); RED BLOOD COUNT 3.88 X10^6/uL (3.5-5.4); RED CELL DISTRIBUTION WIDTH 14.1 % (11.6-16.5); WHITE BLOOD COUNT 17.3 X10^3/uL (3.6-10.0)
[2021-04-21] MEDS: ACCUNEB 1.25 MG NEBULE NEB SCH ×5 (05:20→20:59)
[2021-04-21 05:37] LABS: PLATELET MORPHOLOGY COMMENT NORMAL (NORMAL)
[2021-04-21] MEDS: SOLU-Medrol 40 MG VIAL IVP SCH ×3 (05:37→20:21)
[2021-04-21] MEDS: TESSALON PERLES PO SCH ×3 (05:37→21:25)
[2021-04-21 05:38] LABS: ALBUMIN 2.1 g/dL (3.4-5.0); CALCIUM 7.1 mg/dL (8.5-10.1); CARBON DIOXIDE 30.6 mmol/L (21-32); CKMB % 1.3 % (<4); COR CA(FOR HYPOALB) 8.6 mg/dL (8.5-10.1); CREATINE KINASE MB 2.8 ng/mL (0-4.0); CREATININE 1.85 mg/dL (0.55-1.02); TROPONIN I 0.16 ng/mL (0-1.5)
--- NOTE | 2021-04-21 07:19 | RAD ---
HISTORYSOB HX: HTN SX: HYSTERECTOMY, BOWEL RESECTION, ORTHOSTUDYCHEST, 1 [id number] trachea is midline. The cardiac silhouette is unremarkable. Diffuse bilateral interstitial and alveolar infiltrates unchanged. No pneumothorax. There is suspected free air beneath the right hemidiaphragm. In the absence of recent abdominal surgery findings are likely result of perforated viscus. The bony thorax is unremarkable.IMPRESSIONPneumoperitoneum. In the absence of recent abdominal surgery findings are likely the result of perforated viscus.Diffuse bilateral interstitial and alveolar infiltrates unchanged.COMMUNICATIONS: These findings were discussed with patient's nurse at 7:15 a.m. 04/21/2021 by Radiology call windows server support technician.Electronically signed by: Kj Mathias (Apr 21, 2021 07:17:14)
[2021-04-21] MEDS: MORPHINE SULFATE INJ 2 MG INJ IVP PRN ×2 (07:33→18:58)
[2021-04-21] MEDS: PEPCID TAB 20 MG PO SCH ×2 (08:30→09:42)
[2021-04-21] MEDS: THIAMINE HCL INJ IVP SCH ×2 (08:31→20:22)
[2021-04-21] MEDS: PROTONIX INJ 40 MG VIAL IVP SCH ×2 (08:31→20:20)
[2021-04-21] MEDS: PULMICORT NEB TX 0.5 MG NEB SCH ×2 (08:40→19:45)
[2021-04-21] MEDS: LEVAQUIN PREMIX IV 250 MG 250 MG/50 ML BAG IV SCH (08:48)
[2021-04-21] MEDS: TIMOPTIC 0.5% EYE DROPS OP SCH (09:24)
[2021-04-21] MEDS: DIFLUCAN PO SCH (09:40)
[2021-04-21] MEDS: BENICAR TAB 40 MG PO SCH (09:40)
[2021-04-21] MEDS: VITAMIN D3 125 mcg (5,000 UNITS) PO SCH (09:42)
[2021-04-21] MEDS: ZINC SULFATE PO SCH (09:43)
[2021-04-21] MEDS: LOVENOX INJ 30 MG SYR SC SCH (10:09)
[2021-04-21] MEDS: TORADOL 15 MG VIAL IVP PRN ×2 (10:26→19:49)
[2021-04-21] MEDS: ZOFRAN INJ 4 MG VIAL IVP PRN (10:28)
--- NOTE | 2021-04-21 12:26 | PCM.PROG ---
Progress Note - Progress Note for Day of Date of Exam: 04/21/21 - Subjective Subjective: MS. BRASWELL WAS ADMITTED FOR TREATMENT OF COVID PNEUMONIA, HYPOXIA, NAUSEA/VOMITING, ABDOMINAL PAIN, AND AZOTEMIA. TODAY, SHE IS ALERT AND ORIENTED, LYING IN THE BED ON MORNING ROUNDS. SHE IS UTILIZING THE BIPAP THIS MORNING. SATURATIONS HAVE BEEN IN THE 90s THIS MORNING AND THROUGHOUT THE NIGHT. SHE HAS HAD AN OCCASIONAL DROP TO THE UPPER 80s. SHE CONTINUES WITH COMPLAINTS OF SHORTNESS OF BREATH AND WEAKNESS TODAY. SHORTNESS OF BREATH IS WORSE AND SATURATIONS DROP WITH EXERTION. ON EXAMINATION, HEART IS REGULAR IN RATE AND RHYTHM. BILATERAL LUNGS ARE NOTED WITH WHEEZING THROUGHOUT. ABDOMEN IS ROUND, SOFT, AND NOTED WITH RIGHT SIDED TENDERNESS TO PALPATION. NORMAL BOWEL SOUNDS NOTED IN ALL QUADRANTS. HER VITALS THIS MORNING ARE: 97.8-92-35-94%-196/88. LABS WERE OBTAINED. ABNORMAL LAB VALUES INCLUDE THE FOLLOWING: WBC 17.3, HGB 11.8, HCT 33.3, BUN 53, CREATININE 1.85, GLUCOSE 162, CALCIUM 7.1, AST 86, CREATINE KINASE 214, CRP 13.30, BNP 464, TOTAL PROTEIN 5.0, ALBUMIN 2.1. ABG REVEALED: PH 7.510, PC02 36, P02 63, HC03 28.7, 02 SAT 94, BASE EXCESS 5.5, A-A GRADIENT 562, FI02 94. A CHEST XRAY WAS OBTAINED AND REVEALED: Pneumoperitoneum. In the absence of recent abdominal surgery findings are likely the result of perforated viscus. Diffuse bilateral interstitial and alveolar infiltrates unchanged. WE WILL CONTINUE WITH IV FLUIDS, IV ANTIBIOTICS, RESPIRATORY THERAPY, NEB TX, INS ULINS, STEROIDS, AND CURRENT PLAN OF CARE TODAY. OTHERWISE, WE WILL FOLLOW UP WITH AM LABS, CHEST XRAY, ABG, AND CONTINUE TO MONITOR. WE WILL INCREASE SOLU- MEDROL TO 80MG IV Q6H. TIME SPENT ON CLINICAL ASSESSMENT, REVIEWING LABS AND IMAGING, DECISION MAKING, AND DOCUMENTATION GREATER THAN 45 MINUTES. - Past Medical Family Social History Past Med/Fam/Surg Hx: No changes since H&P Allergies: Allergies acetaminophen [From Darvocet-N] Allergy (Verified 04/03/20 09:40) aspirin Allergy (Verified 04/15/21 08:39) gelatin Allergy (Verified 03/24/21 17:34) oxycodone [From Percocet] Allergy (Verified 04/15/21 08:39) propoxyphene [From Darvocet-N] Allergy (Verified 04/03/20 09:40) - Review of Systems ROS: No change since H&P - Vital Signs and I&O's Vital Signs: Temperature 97.8 F Pulse Rate 71 Respiratory Rate 21 Blood Pressure [Right Arm] 122/58 Blood Pressure 192/87 O2 Sat by Pulse Oximetry 100 Intake and Output: Intake & Output 04/19/21 04/20/21 04/21/21 04/22/21 11:59 11:59 11:59 11:59 Intake Total 3300 / 3300 1930 251 / 4 Output Total 700 / 700 Balance 3300 / 3300 1930 - Physical Exam Oriented: Normal Eyes: Normal Ear: Normal Nose: Normal Throat: Normal Respiratory: Normal, Diminished Cardiovascular: Normal : Normal Auscultation: Bowel Sounds: Normal Palpation: Normal Tenderness: LLQ, Other (soft abdomen with RT side tenderness , no rebound .. BS + but hypoactive .) Skin: Normal Musculoskeletal: Normal Psychiatric: Normal Mood Description: Calm Affect: Normal Speech Pattern: Clear, Appropriate - Laboratory and Diagnostics Result Diagrams: 04/21/21 04:53 04/21/21 04:53 Labs: 04/15/21 09:00 Blood Blood Culture - Final 04/15/21 09:00 Blood Blood Culture - Final Laboratory WBC 17.3 X10^3/uL (3.6-10.0) H 04/21/21 04:53 RBC 3.88 X10^6/uL (3.5-5.4) 04/21/21 04:53 Hgb 11.8 g/dL (12.0-16.0) L 04/21/21 04:53 Hct 33.3 % (36.0-47.0) L 04/21/21 04:53 MCV 85.8 fL (80.0-100.0) 04/21/21 04:53 MCH 30.4 pg (27.0-34.0) 04/21/21 04:53 MCHC 35.4 g/dL (33.0-35.0) H 04/21/21 04:53 RDW 14.1 % (11.6-16.5) 04/21/21 04:53 Plt Count 231 X10^3/uL (150.0-450.0) 04/21/21 04:53 Plt Count Comment Adequate (ADEQUATE) 04/21/21 04:53 MPV 8.4 fL (7.4-11.0) 04/21/21 04:53 Neut % (Auto) 91.4 % (42.0-75.0) H 04/21/21 04:53 Lymph % (Auto) 4.2 % (21.0-51.0) L 04/21/21 04:53 [place] % (Auto) 1.5 % (0.0-13.0) 04/21/21 04:53 Eos % (Auto) 1.0 % (0.9-2.9) 04/21/21 04:53 Baso % (Auto) 1.9 % (0.2-1.0) H 04/21/21 04:53 Neut # (Auto) 15.8 x10^3/uL (2.2-4.8) H 04/21/21 04:53 Lymph # (Auto) 0.7 X10^3/uL (1.3-2.9) L 04/21/21 04:53 [place] # (Auto) 0.3 x10^3/uL (0.3-0.8) 04/21/21 04:53 Eos # (Auto) 0.2 x10^3/uL (0.0-0.2) 04/21/21 04:53 Baso # (Auto) 0.3 X10^3/uL (0.0-0.1) H 04/21/21 04:53 Absolute Nucleated RBC 0.0 /100WBC 04/21/21 04:53 Total Counted 100 04/21/21 04:53 Neutrophils % (Manual) 95 % (39-76) H 04/21/21 04:53 Band Neutrophils % 3 % (0-10) 04/20/21 05:27 Lymphocytes % (Manual) 2 % (13-43) L 04/21/21 04:53 Monocytes % (Manual) 3 % (4-9) L 04/21/21 04:53 Metamyelocytes % 4 04/18/21 04:59 Plt Morphology Comment Normal (NORMAL) 04/21/21 04:53 RBC Morphology Normal (NORMAL) 04/21/21 04:53 [place] Cells Slight A 04/20/21 05:27 PT 14.3 SECONDS (11.8-14.3) 04/15/21 08:45 INR Target Range - 04/15/21 08:45 INR 1.17 (0.8-1.3) 04/15/21 08:45 APTT 33.7 SECONDS (22.9-36.5) 04/15/21 08:45 PTT Comment - 04/15/21 08:45 D-Dimer 1.81 ug/ml (0.0-0.57) H* 04/19/21 04:15 Sample Site Rrad 04/21/21 04:45 ABG pH 7.510 (7.35-7.45) H 04/21/21 04:45 ABG pCO2 36.0 mmHg (35.0-45.0) 04/21/21 04:45 ABG pO2 63.0 mmHg (80.0-100.0) L 04/21/21 04:45 ABG HCO3 28.7 mmol/L (22-26) H 04/21/21 04:45 ABG O2 Saturation 94.0 % (90-100) 04/21/21 04:45 ABG Base Excess 5.5 mmol/L (-2.0-2.0) H 04/21/21 04:45 Jonathan Test Pos 04/21/21 04:45 A-a Gradient 562.0 mmHg 04/21/21 04:45 FiO2 94.0 04/21/21 04:45 Blood Gas Comments Estevan abg well-mtf 04/21/21 04:45 Sodium 143 mmol/L (136-145) 04/21/21 04:53 Corrected Sodium 144 mmol/L (136-145) 04/21/21 04:53 Potassium 3.5 mmol/L (3.5-5.1) 04/21/21 04:53 Chloride 106 mmol/L (98-107) 04/21/21 04:53 Carbon Dioxide 30.6 mmol/L (21-32) 04/21/21 04:53 BUN 53 mg/dL (7-18) H 04/21/21 04:53 Creatinine 1.85 mg/dL (0.55-1.02) H 04/21/21 04:53 Est GFR (MDRD) Af Amer 34 (>60) L 04/21/21 04:53 Est GFR (MDRD) Non-Af 28 (>60) L 04/21/21 04:53 Glucose 162 mg/dL (65-99) H 04/21/21 04:53 POC Glucose (mg/dL) 155 mg/dL (65-99) H 04/17/21 15:19 Lactic Acid 2.3 mmol/L (0.4-2.0) H 04/15/21 08:45 Calcium 7.1 mg/dL (8.5-10.1) L 04/21/21 04:53 Corrected Calcium 8.6 mg/dL (8.5-10.1) 04/21/21 04:53 Magnesium 2.3 mg/dL (1.7-2.9) 04/19/21 04:15 Ferritin 1726 ng/mL (8-252) H 04/15/21 08:45 Total Bilirubin 1.00 mg/dL (0.2-1.0) 04/21/21 04:53 AST 86 Units/L (15-37) H 04/21/21 04:53 ALT 16 Units/L (12-78) 04/21/21 04:53 Alkaline Phosphatase 97 Units/L (46-116) 04/21/21 04:53 Creatine Kinase 214 Units/L (26-192) H 04/21/21 04:53 CK-MB (CK-2) 2.8 ng/mL (0-4.0) 04/21/21 04:53 CK/CKMB % Calc 1.3 % (<4) 04/21/21 04:53 Troponin I 0.16 ng/mL (0-1.5) 04/21/21 04:53 C-Reactive Protein 13.30 mg/L (0-3.0) H 04/21/21 04:53 B-Natriuretic Peptide 464 pg/mL (0-79) H 04/21/21 04:53 Total Protein 5.0 g/dL (6.4-8.2) L 04/21/21 04:53 Albumin 2.1 g/dL (3.4-5.0) L 04/21/21 04:53 Globulin 2.9 g/dL (2.5-4.5) 04/21/21 04:53 Albumin/Globulin Ratio 0.7 Ratio (1.1-2.1) L 04/21/21 04:53 Specimen Type Catherized urine 04/21/21 00:30 Urine Color Yellow (YELLOW) 04/21/21 00:30 Urine Appearance Clear (CLEAR) 04/21/21 00:30 Urine pH 6.0 (5.0 - 8.0) 04/21/21 00:30 Ur Specific [place] 1.010 (1.000-1.030) 04/21/21 00:30 Urine Protein 1+ (NEGATIVE) 04/21/21 00:30 Urine Glucose (UA) 1+ (NEGATIVE) 04/21/21 00:30 Urine Ketones Negative (NEGATIVE) 04/21/21 00:30 Urine Occult Blood 1+ (NEGATIVE) 04/21/21 00:30 Urine Nitrite Negative (NEGATIVE) 04/21/21 00:30 Urine Bilirubin Negative (NEGATIVE) 04/21/21 00:30 Urine Urobilinogen Normal (NORMAL) 04/21/21 00:30 Ur Leukocyte Esterase Negative (NEGATIVE) 04/21/21 00:30 Urine RBC None seen /HPF (0-3) 04/21/21 00:30 Urine WBC None seen /HPF (0-5) 04/21/21 00:30 Ur Squamous Epith Cells Negative /HPF (NEGATIVE) 04/21/21 00:30 Urine Bacteria Negative /HPF (NEGATIVE) 04/21/21 00:30 Ur Culture Indicated? No/not indicated 04/21/21 00:30 SARS-CoV-2 (PCR) Positive (NEGATIVE) A 04/15/21 08:44 Influenza Type A (PCR) Negative (NEGATIVE) 04/15/21 08:44 Influenza Type B (PCR) Negative (NEGATIVE) 04/15/21 08:44 RSV (PCR) Negative (NEGATIVE) 04/15/21 08:44 - Plan (1) Pneumonia due to COVID-19 virus Status: Acute Plan: SUPPLEMENTAL OXYGEN, 1/2NS WITH 20MEQ KCL AT 75 ML/HR, LEVAQUIN 500MG IV DAILY, REMDESIVIR 100MG IV DAILY, ASCORBIC ACID 1500MG IV Q6H, ALBUTEROL NEBS TID, PULMICORT NEBS BID, SOLU-MEDROL 80MG IV Q6H, ZOFRAN 4MG IV Q6H PRN, LOVENOX 30MG SC Q12H, LIPITOR 80MG PO HS, TESSALON PERLES 200MG PO TID, PEPCID 20MG PO DAILY, ROBITUSSIN DM 10ML PO QID PRN, HUMULIN R SLIDING SCALE, MORPHINE SULFATE 2MG IV Q4H PRN, FLUCONAZOLE 100MG PO DAILY, PROTONIX 40MG IV BID, THIAMINE 200MG IV BID, ZINC SULFATE 220MG PO DAILY. (2) Hypoxia Status: Acute (3) Nausea & vomiting Status: Acute Qualifiers: Vomiting type: unspecified Vomiting Intractability: non-intractable Qualified Code(s): R11.2 - Nausea with vomiting, unspecified (4) Azotemia Status: Acute
[2021-04-21] MEDS: LIPITOR TAB 80 MG PO SCH (20:20)
[2021-04-21] MEDS: XALATAN OP SCH (20:22)
[2021-04-21] MEDS ORDERED: HALDOL INJ IVP PRN (20:32)
[2021-04-21] MEDS ORDERED: MORPHINE SULFATE INJ 2 MG INJ IVP ONE (20:50)
--- NOTE | 2021-04-21 21:43 | CT ---
EXAM: CT ABDOMEN AND PELVIS WITHOUT INTRAVENOUS CONTRASTHISTORY: Severe abdominal pain.TECHNIQUE: Spiral axial CT images are obtained through the abdomen and pelvis without the administration of intravenous contrast. Additional coronal and sagittal reformatted images are reconstructed.DOSIMETRY: Total DLP 796.4 mGycm; CTDI 14.7 mGyCOMPARISON: CT abdomen and pelvis dated May 16, 2021.FINDINGS:PERITONEAL CAVITY: There is interval appearance of a moderate amount of free intraperitoneal air within the anterior abdomen and pelvis in keeping with viscus perforation (in the absence of recent surgery or percutaneous procedure). A small amount of complex appearing intra-abdominal and intrapelvic ascites is seen; DDx includes superinfected or otherwise complex ascites; rule out peritonitis.GASTROINTESTINAL TRACT: Status post partial bowel resection with enteroenteric anastomosis in the left lower quadrant, with interval appearance of bowel wall thickening around the anastomosis and perienteric/mesenteric bubbles of air; DDx includes postinflammatory change enteritis with partial atherosclerotic leak. Axial image [id number]. There is severe diffuse colonic diverticulosis, most severe in the descending colon and sigmoid regions, without CT evidence for acute diverticulitis. There is an approximately 5.6 cm transverse by 4.3 cm AP by 6 cm cc hiatal hernia containing collapsed proximal stomach. There is no evidence for bowel herniation, bowel obstruction, appendicitis or colitis.GENITOURINARY SYSTEM: The kidneys are unremarkable. There is no ureteral calculus or stigmata of obstructive uropathy. The urinary bladder is grossly unremarkable for a non-dedicated exam. A Levine balloon catheter is seen within a collapsed urinary bladder.CT ABDOMEN: Dilated gallbladder with somewhat thickened appearance of the gallbladder wall which could represent secondary cholecystitis in the appropriate clinical setting. Clinical correlation is advised. The liver, spleen, pancreas, adrenal glands, aorta, and inferior vena cava are within normal limits for a noncontrast CT scan. There is no intra-abdominal or retroperitoneal lymphadenopathy seen. No abdominal herniation is noted.CT PELVIS: The visualized bony structures are within normal limits. No pelvic sidewall or inguinal lymphadenopathy is seen. No inguinal herniation is noted.LUNG BASES: There is severe diffuse interstitial prominence and groundglass infiltrates in the visualized lower lung branch which could represent cardiogenic or noncardiogenic pulmonary edema/congestion and/or acute interstitial pneumonia in the appropriate clinical setting. Small bilateral pleural effusions are seen.IMPRESSION:1. Interval appearance of a moderate amount of free intraperitoneal air within the anterior abdomen and pelvis in keeping with viscus perforation (in the absence of recent surgery or percutaneous procedure).2. A small amount of complex appearing intra-abdominal and intrapelvic ascites is seen; DDx includes superinfected or otherwise complex ascites; rule out peritonitis.3. Status post partial bowel resection with enteroenteric anastomosis in the left lower quadrant, with interval appearance of bowel wall thickening around the anastomosis and perienteric/mesenteric bubbles of air; DDx includes postinflammatory change enteritis with partial atherosclerotic leak. Axial image 63?77.4. Severe diffuse colonic diverticulosis, most severe in the descending colon and sigmoid regions, without CT evidence for acute diverticulitis.5. Approximately 5.6 cm transverse by 4.3 cm AP by 6 cm cc hiatal hernia containing collapsed proximal stomach.6. No evidence for bowel herniation, bowel obstruction, appendicitis or colitis.7. No evidence for renal stone disease or obstructive uropathy.8. Severe diffuse interstitial prominence and groundglass infiltrates in the visualized lower lung branch which could represent cardiogenic or noncardiogenic pulmonary edema/congestion and/or acute interstitial pneumonia in the appropriate clinical setting.9. Small bilateral pleural effusions are seen.Electronically signed by: Santino Akbar (Apr 21, 2021 21:40:33)
[2021-04-21] MEDS ORDERED: DILAUDID INJ ONE (22:09)
[2021-04-21] MEDS ORDERED: DILAUDID INJ IVP ONE (22:09)
[2021-04-21] MEDS ORDERED: ZOSYN VIAL 3.375 GRAMS IV ONE (22:25)
[2021-04-21] MEDS ORDERED: NS 1000 ML 1,000 ML ONE (22:26)
[2021-04-21] MEDS: ZOSYN VIAL 3.375 GRAMS 3.375 G in NS 100 ML IV + SPIKE MINIBAG* 100 ML IV SCH (22:31)
--- NOTE | 2021-04-21 23:07 | DR.PROGNOT ---
Hospital Progress Notes - Progress Note for Day of: Progress Note Date: 04/21/21 - Chief Complaint Chief Complaint: Pt was having severe abdominal pain tonight with associated SOB . CT showed free air in the abdomen without clear site of perforation . ascites and diverticulosis . inflammation around the old anastomosis . BP was low 100 and 90 . had to give large dose of narcotics to alleviate the pain - Past Medical Family Social History Past Med/Fam/Surg Hx: No changes since H&P Allergies: Allergies acetaminophen [From Darvocet-N] Allergy (Verified 04/03/20 09:40) aspirin Allergy (Verified 04/15/21 08:39) gelatin Allergy (Verified 03/24/21 17:34) oxycodone [From Percocet] Allergy (Verified 04/15/21 08:39) propoxyphene [From Darvocet-N] Allergy (Verified 04/03/20 09:40) - Review Of Systems ROS: No change since H&P - Vital Signs Vital Signs: Temperature 97.3 F Pulse Rate 111 Respiratory Rate 36 Blood Pressure [Right Arm] 122/58 Blood Pressure 119/62 O2 Sat by Pulse Oximetry 100 - Physical Exam Oriented: Normal, Not Oriented Eyes: Normal Ear: Normal Nose: Normal Throat: Normal Respiratory: Normal, Diminished Cardiovascular: Normal : Normal GI:Auscultation: Normal GI:Palpation: Normal, Other (tender abdomen with hypoactive BS) GI: Tenderness: LLQ, Other (soft abdomen with RT side tenderness , no rebound .. BS + but hypoactive .) Skin: Normal Musculoskeletal: Normal Psychiatric: Normal Mood Description: Calm Affect: Normal Speech Pattern: Clear, Appropriate - Laboratory and Diagnostics Result Diagrams: 04/21/21 04:53 04/21/21 04:53 Labs: 04/15/21 09:00 Blood Blood Culture - Final 04/15/21 09:00 Blood Blood Culture - Final Laboratory WBC 17.3 X10^3/uL (3.6-10.0) H 04/21/21 04:53 RBC 3.88 X10^6/uL (3.5-5.4) 04/21/21 04:53 Hgb 11.8 g/dL (12.0-16.0) L 04/21/21 04:53 Hct 33.3 % (36.0-47.0) L 04/21/21 04:53 MCV 85.8 fL (80.0-100.0) 04/21/21 04:53 MCH 30.4 pg (27.0-34.0) 04/21/21 04:53 MCHC 35.4 g/dL (33.0-35.0) H 04/21/21 04:53 RDW 14.1 % (11.6-16.5) 04/21/21 04:53 Plt Count 231 X10^3/uL (150.0-450.0) 04/21/21 04:53 Plt Count Comment Adequate (ADEQUATE) 04/21/21 04:53 MPV 8.4 fL (7.4-11.0) 04/21/21 04:53 Neut % (Auto) 91.4 % (42.0-75.0) H 04/21/21 04:53 Lymph % (Auto) 4.2 % (21.0-51.0) L 04/21/21 04:53 [place] % (Auto) 1.5 % (0.0-13.0) 04/21/21 04:53 Eos % (Auto) 1.0 % (0.9-2.9) 04/21/21 04:53 Baso % (Auto) 1.9 % (0.2-1.0) H 04/21/21 04:53 Neut # (Auto) 15.8 x10^3/uL (2.2-4.8) H 04/21/21 04:53 Lymph # (Auto) 0.7 X10^3/uL (1.3-2.9) L 04/21/21 04:53 [place] # (Auto) 0.3 x10^3/uL (0.3-0.8) 04/21/21 04:53 Eos # (Auto) 0.2 x10^3/uL (0.0-0.2) 04/21/21 04:53 Baso # (Auto) 0.3 X10^3/uL (0.0-0.1) H 04/21/21 04:53 Absolute Nucleated RBC 0.0 /100WBC 04/21/21 04:53 Total Counted 100 04/21/21 04:53 Neutrophils % (Manual) 95 % (39-76) H 04/21/21 04:53 Band Neutrophils % 3 % (0-10) 04/20/21 05:27 Lymphocytes % (Manual) 2 % (13-43) L 04/21/21 04:53 Monocytes % (Manual) 3 % (4-9) L 04/21/21 04:53 Metamyelocytes % 4 04/18/21 04:59 Plt Morphology Comment Normal (NORMAL) 04/21/21 04:53 RBC Morphology Normal (NORMAL) 04/21/21 04:53 [place] Cells Slight A 04/20/21 05:27 PT 14.3 SECONDS (11.8-14.3) 04/15/21 08:45 INR Target Range - 04/15/21 08:45 INR 1.17 (0.8-1.3) 04/15/21 08:45 APTT 33.7 SECONDS (22.9-36.5) 04/15/21 08:45 PTT Comment - 04/15/21 08:45 D-Dimer 1.81 ug/ml (0.0-0.57) H* 04/19/21 04:15 Sample Site Rrad 04/21/21 04:45 ABG pH 7.510 (7.35-7.45) H 04/21/21 04:45 ABG pCO2 36.0 mmHg (35.0-45.0) 04/21/21 04:45 ABG pO2 63.0 mmHg (80.0-100.0) L 04/21/21 04:45 ABG HCO3 28.7 mmol/L (22-26) H 04/21/21 04:45 ABG O2 Saturation 94.0 % (90-100) 04/21/21 04:45 ABG Base Excess 5.5 mmol/L (-2.0-2.0) H 04/21/21 04:45 Jonathan Test Pos 04/21/21 04:45 A-a Gradient 562.0 mmHg 04/21/21 04:45 FiO2 94.0 04/21/21 04:45 Blood Gas Comments Estevan abg well-mtf 04/21/21 04:45 Sodium 143 mmol/L (136-145) 04/21/21 04:53 Corrected Sodium 144 mmol/L (136-145) 04/21/21 04:53 Potassium 3.5 mmol/L (3.5-5.1) 04/21/21 04:53 Chloride 106 mmol/L (98-107) 04/21/21 04:53 Carbon Dioxide 30.6 mmol/L (21-32) 04/21/21 04:53 BUN 53 mg/dL (7-18) H 04/21/21 04:53 Creatinine 1.85 mg/dL (0.55-1.02) H 04/21/21 04:53 Est GFR (MDRD) Af Amer 34 (>60) L 04/21/21 04:53 Est GFR (MDRD) Non-Af 28 (>60) L 04/21/21 04:53 Glucose 162 mg/dL (65-99) H 04/21/21 04:53 POC Glucose (mg/dL) 155 mg/dL (65-99) H 04/17/21 15:19 Lactic Acid 2.3 mmol/L (0.4-2.0) H 04/15/21 08:45 Calcium 7.1 mg/dL (8.5-10.1) L 04/21/21 04:53 Corrected Calcium 8.6 mg/dL (8.5-10.1) 04/21/21 04:53 Magnesium 2.3 mg/dL (1.7-2.9) 04/19/21 04:15 Ferritin 1726 ng/mL (8-252) H 04/15/21 08:45 Total Bilirubin 1.00 mg/dL (0.2-1.0) 04/21/21 04:53 AST 86 Units/L (15-37) H 04/21/21 04:53 ALT 16 Units/L (12-78) 04/21/21 04:53 Alkaline Phosphatase 97 Units/L (46-116) 04/21/21 04:53 Creatine Kinase 214 Units/L (26-192) H 04/21/21 04:53 CK-MB (CK-2) 2.8 ng/mL (0-4.0) 04/21/21 04:53 CK/CKMB % Calc 1.3 % (<4) 04/21/21 04:53 Troponin I 0.16 ng/mL (0-1.5) 04/21/21 04:53 C-Reactive Protein 13.30 mg/L (0-3.0) H 04/21/21 04:53 B-Natriuretic Peptide 464 pg/mL (0-79) H 04/21/21 04:53 Total Protein 5.0 g/dL (6.4-8.2) L 04/21/21 04:53 Albumin 2.1 g/dL (3.4-5.0) L 04/21/21 04:53 Globulin 2.9 g/dL (2.5-4.5) 04/21/21 04:53 Albumin/Globulin Ratio 0.7 Ratio (1.1-2.1) L 04/21/21 04:53 Specimen Type Catherized urine 04/21/21 00:30 Urine Color Yellow (YELLOW) 04/21/21 00:30 Urine Appearance Clear (CLEAR) 04/21/21 00:30 Urine pH 6.0 (5.0 - 8.0) 04/21/21 00:30 Ur Specific [place] 1.010 (1.000-1.030) 04/21/21 00:30 Urine Protein 1+ (NEGATIVE) 04/21/21 00:30 Urine Glucose (UA) 1+ (NEGATIVE) 04/21/21 00:30 Urine Ketones Negative (NEGATIVE) 04/21/21 00:30 Urine Occult Blood 1+ (NEGATIVE) 04/21/21 00:30 Urine Nitrite Negative (NEGATIVE) 04/21/21 00:30 Urine Bilirubin Negative (NEGATIVE) 04/21/21 00:30 Urine Urobilinogen Normal (NORMAL) 04/21/21 00:30 Ur Leukocyte Esterase Negative (NEGATIVE) 04/21/21 00:30 Urine RBC None seen /HPF (0-3) 04/21/21 00:30 Urine WBC None seen /HPF (0-5) 04/21/21 00:30 Ur Squamous Epith Cells Negative /HPF (NEGATIVE) 04/21/21 00:30 Urine Bacteria Negative /HPF (NEGATIVE) 04/21/21 00:30 Ur Culture Indicated? No/not indicated 04/21/21 00:30 SARS-CoV-2 (PCR) Positive (NEGATIVE) A 04/15/21 08:44 Influenza Type A (PCR) Negative (NEGATIVE) 04/15/21 08:44 Influenza Type B (PCR) Negative (NEGATIVE) 04/15/21 08:44 RSV (PCR) Negative (NEGATIVE) 04/15/21 08:44 - Assessment and Plan 1: acute abdominal changes , possible another perforated bowel . Covid pveumonia . EKG changes with ischemia. dehydration and Azotemia. chronic cholecystitis . recent small bowel resection for isolated perforated small bowel . ( no malignancy , IBD , or ischemia ). central line was placed RT groin . added Zosyn . repeat lab work . Pt is critical and not stable for surgery now .. - Problem Patient Problems: Patient Problems Nausea & vomiting (Acute) R11.2 COVID-19 (Acute) U07.1 Azotemia (Acute) R79.89 Hypoxemia (Acute) R09.02 Pneumonia due to COVID-19 virus (Acute) U07.1, J12.82 Hypoxia (Acute) R09.02
[2021-04-21 23:09] LABS: BASOPHILS % (AUTO) 0.2 % (0.2-1.0); HEMATOCRIT 36.2 % (36.0-47.0); HEMOGLOBIN 12.5 g/dL (12.0-16.0); LYMPHOCYTES # (AUTO) 0.2 X10^3/uL (1.3-2.9); LYMPHOCYTES % (AUTO) 1.3 % (21.0-51.0); MEAN CORPUSCULAR HEMOGLOBIN 30.1 pg (27.0-34.0); MEAN CORPUSCULAR HGB CONC 34.4 g/dL (33.0-35.0); MEAN CORPUSCULAR VOLUME 87.4 fL (80.0-100.0); MEAN PLATELET VOLUME 8.3 fL (7.4-11.0); MONOCYTES # (AUTO) 0.4 x10^3/uL (0.3-0.8); MONOCYTES % (AUTO) 2.4 % (0.0-13.0); NEUTROPHILS # (AUTO) 15.8 x10^3/uL (2.2-4.8); NEUTROPHILS % (AUTO) 96.1 % (42.0-75.0); PLATELET COUNT 202 X10^3/uL (150.0-450.0); RED BLOOD COUNT 4.14 X10^6/uL (3.5-5.4); RED CELL DISTRIBUTION WIDTH 14.6 % (11.6-16.5); WHITE BLOOD COUNT 16.4 X10^3/uL (3.6-10.0)
[2021-04-21 23:27] LABS: LACTIC ACID 2.2 mmol/L (0.4-2.0)
[2021-04-21] MEDS: DOPAMINE IV PREMIX 400 MG/250 ML 400 MG/250 ML BAG IV PRN (23:27)
[2021-04-21 23:29] LABS: PLATELET MORPHOLOGY COMMENT NORMAL (NORMAL)
[2021-04-21 23:32] LABS: CALCIUM 6.7 mg/dL (8.5-10.1); CARBON DIOXIDE 29.6 mmol/L (21-32); COR CA(FOR HYPOALB) 8.3 mg/dL (8.5-10.1); CREATININE 1.74 mg/dL (0.55-1.02); TOTAL PROTEIN 4.8 g/dL (6.4-8.2)
[2021-04-21 23:34] LABS: CREATINE KINASE MB 3.3 ng/mL (0-4.0); TROPONIN I 0.12 ng/mL (0-1.5)
[2021-04-22] MEDS: ASCORBIC ACID INJ MULTI-DOSE VIAL 1,500 MG in NS 50 ML IV 50 ML IV SCH ×4 (02:45→21:27)
[2021-04-22] MEDS: MORPHINE SULFATE INJ 2 MG INJ IVP PRN (02:45)
[2021-04-22] MEDS: SOLU-Medrol 40 MG VIAL IVP SCH ×4 (02:46→21:29)
[2021-04-22 04:42] LABS: ABG ALLEN TEST POS; ABG BASE EXCESS -0.1 mmol/L (-2.0-2.0); ABG HCO3 25.4 mmol/L (22-26)
[2021-04-22] MEDS: ACCUNEB 1.25 MG NEBULE NEB SCH ×3 (04:59→20:05)
[2021-04-22 05:26] LABS: LACTIC ACID 2.4 mmol/L (0.4-2.0)
[2021-04-22 05:27] LABS: BASOPHILS % (AUTO) 0.2 % (0.2-1.0); HEMOGLOBIN 13.7 g/dL (12.0-16.0); LYMPHOCYTES # (AUTO) 0.2 X10^3/uL (1.3-2.9); LYMPHOCYTES % (AUTO) 1.2 % (21.0-51.0); MEAN CORPUSCULAR HEMOGLOBIN 29.9 pg (27.0-34.0); MEAN CORPUSCULAR HGB CONC 34.3 g/dL (33.0-35.0); MEAN CORPUSCULAR VOLUME 87.1 fL (80.0-100.0); MEAN PLATELET VOLUME 8.8 fL (7.4-11.0); MONOCYTES # (AUTO) 0.1 x10^3/uL (0.3-0.8); MONOCYTES % (AUTO) 0.6 % (0.0-13.0); PLATELET COUNT 221 X10^3/uL (150.0-450.0); RED BLOOD COUNT 4.59 X10^6/uL (3.5-5.4); RED CELL DISTRIBUTION WIDTH 14.8 % (11.6-16.5); WHITE BLOOD COUNT 13.3 X10^3/uL (3.6-10.0)
[2021-04-22 05:42] LABS: PLATELET MORPHOLOGY COMMENT NORMAL (NORMAL)
[2021-04-22 05:44] LABS: CALCIUM 6.8 mg/dL (8.5-10.1); CARBON DIOXIDE 26.7 mmol/L (21-32); CREATINE KINASE MB 2.9 ng/mL (0-4.0); CREATININE 1.94 mg/dL (0.55-1.02); TROPONIN I 0.11 ng/mL (0-1.5)
[2021-04-22] MEDS: TESSALON PERLES PO SCH ×3 (06:02→21:32)
[2021-04-22] MEDS: NS + KCL 20 MEQ/L 1,000 ML IV SCH (06:02)
[2021-04-22] MEDS: ZOSYN VIAL 3.375 GRAMS 3.375 G in NS 100 ML IV + SPIKE MINIBAG* 100 ML IV SCH ×3 (06:02→21:33)
--- NOTE | 2021-04-22 06:10 | RAD ---
HISTORYSOBSTUDYCHEST, 1 [id number]/19/21.TECHNIQUEAP view of the chestFINDINGSCardiac and mediastinal contours are within normal limits. Mild improvement in diffuse bilateral airspace opacities. Free air under the right hemidiaphragm is decreased since prior. No pleural effusion or pneumothorax.IMPRESSIONMild improvement in diffuse bilateral airspace opacities. Decreased free intraperitoneal air under the right hemidiaphragm.Electronically signed by: Ranjan Bang (Apr 22, 2021 06:08:13)
[2021-04-22] MEDS: DILAUDID INJ IVP PRN ×3 (07:40→18:06)
--- NOTE | 2021-04-22 07:50 | DR.PROGNOT ---
Hospital Progress Notes - Progress Note for Day of: Progress Note Date: 04/22/21 - Chief Complaint Chief Complaint: no changes . Pt was having severe abdominal pain last night with associated SOB . CT showed free air in the abdomen without clear site of perforation . ascites and diverticulosis . inflammation around the old anastomosis . urine out put 600 cc last shift . BP was low 100 and 90 . still on small dose of Dopamin. had to give large dose of narcotics to alleviate the pain - Past Medical Family Social History Past Med/Fam/Surg Hx: No changes since H&P Allergies: Allergies acetaminophen [From Darvocet-N] Allergy (Verified 04/03/20 09:40) aspirin Allergy (Verified 04/15/21 08:39) gelatin Allergy (Verified 03/24/21 17:34) oxycodone [From Percocet] Allergy (Verified 04/15/21 08:39) propoxyphene [From Darvocet-N] Allergy (Verified 04/03/20 09:40) - Review Of Systems ROS: No change since H&P - Vital Signs Vital Signs: Temperature 98.7 F Pulse Rate 92 Respiratory Rate 17 Blood Pressure [Right Arm] 122/58 Blood Pressure 96/54 O2 Sat by Pulse Oximetry 93 - Physical Exam Oriented: Normal, Not Oriented Eyes: Normal Ear: Normal Nose: Normal Throat: Normal Respiratory: Normal, Diminished Cardiovascular: Normal : Normal GI:Auscultation: Normal GI:Palpation: Normal, Other (tender abdomen with hypoactive BS) GI: Tenderness: LLQ, Other (soft abdomen with RT side tenderness , no rebound .. BS + but hypoactive .) Skin: Normal Musculoskeletal: Normal Psychiatric: Normal Mood Description: Calm Affect: Normal Speech Pattern: Clear, Appropriate - Laboratory and Diagnostics Result Diagrams: 04/22/21 04:45 04/22/21 04:45 Labs: 04/15/21 09:00 Blood Blood Culture - Final 04/15/21 09:00 Blood Blood Culture - Final Laboratory WBC 13.3 X10^3/uL (3.6-10.0) H 04/22/21 04:45 RBC 4.59 X10^6/uL (3.5-5.4) 04/22/21 04:45 Hgb 13.7 g/dL (12.0-16.0) 04/22/21 04:45 Hct 40.0 % (36.0-47.0) 04/22/21 04:45 MCV 87.1 fL (80.0-100.0) 04/22/21 04:45 MCH 29.9 pg (27.0-34.0) 04/22/21 04:45 MCHC 34.3 g/dL (33.0-35.0) 04/22/21 04:45 RDW 14.8 % (11.6-16.5) 04/22/21 04:45 Plt Count 221 X10^3/uL (150.0-450.0) 04/22/21 04:45 Plt Count Comment Adequate (ADEQUATE) 04/22/21 04:45 MPV 8.8 fL (7.4-11.0) 04/22/21 04:45 Neut % (Auto) 98.0 % (42.0-75.0) H 04/22/21 04:45 Lymph % (Auto) 1.2 % (21.0-51.0) L 04/22/21 04:45 [place] % (Auto) 0.6 % (0.0-13.0) 04/22/21 04:45 Eos % (Auto) 0.0 % (0.9-2.9) L 04/22/21 04:45 Baso % (Auto) 0.2 % (0.2-1.0) 04/22/21 04:45 Neut # (Auto) 13.0 x10^3/uL (2.2-4.8) H 04/22/21 04:45 Lymph # (Auto) 0.2 X10^3/uL (1.3-2.9) L 04/22/21 04:45 [place] # (Auto) 0.1 x10^3/uL (0.3-0.8) L 04/22/21 04:45 Eos # (Auto) 0.0 x10^3/uL (0.0-0.2) 04/22/21 04:45 Baso # (Auto) 0.0 X10^3/uL (0.0-0.1) 04/22/21 04:45 Absolute Nucleated RBC 0.0 /100WBC 04/22/21 04:45 Total Counted 100 04/22/21 04:45 Neutrophils % (Manual) 97 % (39-76) H 04/22/21 04:45 Band Neutrophils % 3 % (0-10) 04/20/21 05:27 Lymphocytes % (Manual) 3 % (13-43) L 04/22/21 04:45 Monocytes % (Manual) 3 % (4-9) L 04/21/21 04:53 Metamyelocytes % 4 04/18/21 04:59 Plt Morphology Comment Normal (NORMAL) 04/22/21 04:45 RBC Morphology Normal (NORMAL) 04/22/21 04:45 [place] Cells Slight A 04/20/21 05:27 PT 14.3 SECONDS (11.8-14.3) 04/15/21 08:45 INR Target Range - 04/15/21 08:45 INR 1.17 (0.8-1.3) 04/15/21 08:45 APTT 33.7 SECONDS (22.9-36.5) 04/15/21 08:45 PTT Comment - 04/15/21 08:45 D-Dimer 1.81 ug/ml (0.0-0.57) H* 04/19/21 04:15 Sample Site Rr 04/22/21 04:35 ABG pH 7.370 (7.35-7.45) 04/22/21 04:35 ABG pCO2 44.0 mmHg (35.0-45.0) 04/22/21 04:35 ABG pO2 69.0 mmHg (80.0-100.0) L 04/22/21 04:35 ABG HCO3 25.4 mmol/L (22-26) 04/22/21 04:35 ABG O2 Saturation 93.0 % (90-100) 04/22/21 04:35 ABG Base Excess -0.1 mmol/L (-2.0-2.0) 04/22/21 04:35 Jonathan Test Pos 04/22/21 04:35 A-a Gradient 518.0 mmHg 04/22/21 04:35 FiO2 90.0 04/22/21 04:35 Blood Gas Comments Estevan well ae 04/22/21 04:35 Sodium 145 mmol/L (136-145) 04/22/21 04:45 Corrected Sodium 146 mmol/L (136-145) H 04/22/21 04:45 Potassium 3.3 mmol/L (3.5-5.1) L 04/22/21 04:45 Chloride 109 mmol/L (98-107) H 04/22/21 04:45 Carbon Dioxide 26.7 mmol/L (21-32) 04/22/21 04:45 BUN 58 mg/dL (7-18) H 04/22/21 04:45 Creatinine 1.94 mg/dL (0.55-1.02) H 04/22/21 04:45 Est GFR (MDRD) Af Amer 32 (>60) L 04/22/21 04:45 Est GFR (MDRD) Non-Af 27 (>60) L 04/22/21 04:45 Glucose 149 mg/dL (65-99) H 04/22/21 04:45 POC Glucose (mg/dL) 155 mg/dL (65-99) H 04/17/21 15:19 Lactic Acid 2.4 mmol/L (0.4-2.0) H 04/22/21 04:45 Calcium 6.8 mg/dL (8.5-10.1) L 04/22/21 04:45 Corrected Calcium 8.3 mg/dL (8.5-10.1) L 04/21/21 23:00 Magnesium 2.3 mg/dL (1.7-2.9) 04/19/21 04:15 Ferritin 1726 ng/mL (8-252) H 04/15/21 08:45 Total Bilirubin 1.50 mg/dL (0.2-1.0) H 04/21/21 23:00 AST 94 Units/L (15-37) H 04/21/21 23:00 ALT 15 Units/L (12-78) 04/21/21 23:00 Alkaline Phosphatase 108 Units/L (46-116) 04/21/21 23:00 Creatine Kinase 281 Units/L (26-192) H 04/22/21 04:45 CK-MB (CK-2) 2.9 ng/mL (0-4.0) 04/22/21 04:45 CK/CKMB % Calc 1.0 % (<4) 04/22/21 04:45 Troponin I 0.11 ng/mL (0-1.5) 04/22/21 04:45 C-Reactive Protein 13.30 mg/L (0-3.0) H 04/21/21 04:53 B-Natriuretic Peptide 464 pg/mL (0-79) H 04/21/21 04:53 Total Protein 4.8 g/dL (6.4-8.2) L 04/21/21 23:00 Albumin 2.0 g/dL (3.4-5.0) L 04/21/21 23:00 Globulin 2.8 g/dL (2.5-4.5) 04/21/21 23:00 Albumin/Globulin Ratio 0.7 Ratio (1.1-2.1) L 04/21/21 23:00 Amylase 223 Units/L (25-115) H 04/21/21 23:00 Lipase 542 Units/L (73-393) H 04/21/21 23:00 Specimen Type Catherized urine 04/21/21 00:30 Urine Color Yellow (YELLOW) 04/21/21 00:30 Urine Appearance Clear (CLEAR) 04/21/21 00:30 Urine pH 6.0 (5.0 - 8.0) 04/21/21 00:30 Ur Specific [place] 1.010 (1.000-1.030) 04/21/21 00:30 Urine Protein 1+ (NEGATIVE) 04/21/21 00:30 Urine Glucose (UA) 1+ (NEGATIVE) 04/21/21 00:30 Urine Ketones Negative (NEGATIVE) 04/21/21 00:30 Urine Occult Blood 1+ (NEGATIVE) 04/21/21 00:30 Urine Nitrite Negative (NEGATIVE) 04/21/21 00:30 Urine Bilirubin Negative (NEGATIVE) 04/21/21 00:30 Urine Urobilinogen Normal (NORMAL) 04/21/21 00:30 Ur Leukocyte Esterase Negative (NEGATIVE) 04/21/21 00:30 Urine RBC None seen /HPF (0-3) 04/21/21 00:30 Urine WBC None seen /HPF (0-5) 04/21/21 00:30 Ur Squamous Epith Cells Negative /HPF (NEGATIVE) 04/21/21 00:30 Urine Bacteria Negative /HPF (NEGATIVE) 04/21/21 00:30 Ur Culture Indicated? No/not indicated 04/21/21 00:30 SARS-CoV-2 (PCR) Positive (NEGATIVE) A 04/15/21 08:44 Influenza Type A (PCR) Negative (NEGATIVE) 04/15/21 08:44 Influenza Type B (PCR) Negative (NEGATIVE) 04/15/21 08:44 RSV (PCR) Negative (NEGATIVE) 04/15/21 08:44 - Assessment and Plan 1: acute abdominal changes , possible another perforated bowel. ( Covid related local ischemia ). Covid pveumonia . EKG changes with ischemia. dehydration and Azotemia. chronic cholecystitis . recent small bowel resection for isolated perforated small bowel . ( no malignancy , IBD , or ischemia ). central line was placed RT groin . added Zosyn . repeat lab work . Pt is critical and not stable for surgery now .. - Problem Patient Problems: Patient Problems Nausea & vomiting (Acute) R11.2 COVID-19 (Acute) U07.1 Azotemia (Acute) R79.89 Hypoxemia (Acute) R09.02 Pneumonia due to COVID-19 virus (Acute) U07.1, J12.82 Hypoxia (Acute) R09.02
[2021-04-22] MEDS: PULMICORT NEB TX 0.5 MG NEB SCH ×2 (08:02→20:05)
[2021-04-22] MEDS: TIMOPTIC 0.5% EYE DROPS OP SCH (08:13)
[2021-04-22] MEDS: BENICAR TAB 40 MG PO SCH (08:27)
[2021-04-22] MEDS: DIFLUCAN PO SCH (08:27)
[2021-04-22] MEDS: PROTONIX INJ 40 MG VIAL IVP SCH ×2 (08:28→21:28)
[2021-04-22] MEDS: PEPCID TAB 20 MG PO SCH (08:28)
[2021-04-22] MEDS: VITAMIN D3 125 mcg (5,000 UNITS) PO SCH (08:29)
[2021-04-22] MEDS: THIAMINE HCL INJ IVP SCH ×2 (08:29→21:31)
[2021-04-22] MEDS: ZINC SULFATE PO SCH (08:30)
[2021-04-22] MEDS: LOVENOX INJ 30 MG SYR SC SCH (08:31)
--- NOTE | 2021-04-22 10:13 | PCM.PROG ---
Progress Note - Progress Note for Day of Date of Exam: 04/22/21 - Subjective Subjective: MS. OLIVEROS WAS ADMITTED FOR TREATMENT OF COVID PNEUMONIA, HYPOXIA, NAUSEA/VOMITING, ABDOMINAL PAIN, AND AZOTEMIA. THROUGHOUT THE AFTERNOON AND LAST NIGHT, PATIENT BEGAN TO HAVE INCREASED ABDOMINAL PAIN AND TACHYCARDIA. AN ABDOMEN/PELVIS CT WITHOUT CONTRAST WAS OBTAINED AT 20:50 AND REVEALED: 1. Interval appearance of a moderate amount of free intraperitoneal air within the anterior abdomen and pelvis in keeping with viscus perforation (in the absence of recent surgery or percutaneous procedure). 2. A small amount of complex appearing intra-abdominal and intrapelvic ascites is seen; DDx includes superinfected or otherwise complex ascites; rule out peritonitis. 3. Status post partial bowel resection with enteroenteric anastomosis in the left lower quadrant, with interval appearance of bowel wall thickening around the anastomosis and perienteric/mesenteric bubbles of air; DDx includes postinflammatory change enteritis with partial atherosclerotic leak. 4. Severe diffuse colonic diverticulosis, most severe in the descending colon and sigmoid regions, without CT evidence for acute diverticulitis. 5. Approximately 5.6 cm transverse by 4.3 cm AP by 6 cm cc hiatal hernia containing collapsed proximal stomach. 6. No evidence for bowel herniation, bowel obstruction, appendicitis or colitis. 7. No evidence for renal stone disease or obstructive uropathy. 8. Severe diffuse interstitial prominence and groundglass infiltrates in the visualized lower lung branch which could represent cardiogenic or noncardiogenic pulmonary edema/congestion and/or acute interstitial pneumonia in the appropriate clinical setting. 9. Small bilateral pleural effusions are seen. PATIENTS BLOOD PRESSURE WAS LOW, THEREFORE, SHE WAS PLACED ON A DOPAMINE DRIP. ZOSYN WAS ALSO ADDED PER , GENERAL SURGEON. FELT THAT PATIENT WAS CRITICAL AND NOT STABLE FOR SURGERY AT THE TIME. HE DID PLACE A CENTRAL LINE. TODAY, SHE IS LYING IN THE BED ON MORNING ROUNDS. SHE IS UTILIZING THE BIPAP THIS MORNING. SHE DOES AWAKEN TO VERBAL STIMULI, BUT IS DROWSY. SHE WAS RECENTLY GIVEN DILAUDID FOR PAIN. SATURATIONS HAVE BEEN IN THE 90s THIS MORNING AND THROUGHOUT THE NIGHT. SHE HAS HAD AN OCCASIONAL DROP TO THE UPPER 80s. SHE CONTINUES WITH COMPLAINTS OF SHORTNESS OF BREATH AND ABDOMINAL PAIN TODAY. ON EXAMINATION, HEART IS REGULAR IN RATE AND RHYTHM. BILATERAL LUNGS ARE NOTED WITH WHEEZING THROUGHOUT. ABDOMEN IS ROUND, SOFT, AND NOTED WITH RIGHT SIDED TENDERNESS TO PALPATION. HYPOACTIVE BOWEL SOUNDS NOTED IN ALL QUADRANTS. HER VITALS THIS MORNING ARE: 97.6-92-13-93%-105/70. LABS WERE OBTAINED. ABNORMAL LAB VALUES INCLUDE THE FOLLOWING: WBC 13.3, POTASSIUM 3.3, CHLORIDE 109, BUN 58, CREATININE 1.94, GLUCOSE 149, LACTIC ACID 2.4, CALCIUM 6.8, CREATINE KINASE 281, CRP 82.50. ABG REVEALED: PH 7.370, PC02 44, P02 69, HC03 25.4, 02 SAT 93, A-A GRADIENT 518, FI02 90. A CHEST XRAY WAS OBTAINED AND REVEALED: Mild improvement in diffuse bilateral airspace opacities. Decreased free intraperitoneal air under the right hemidiaphragm. WE WILL CONTINUE WITH IV FLUIDS, IV ANTIBIOTICS, RESPIRATORY THERAPY, NEB TX, INSULINS, STEROIDS, AND CURRENT PLAN OF CARE TODAY. WILL ALSO MONITOR PATIENT CLOSELY. OTHERWISE, WE WILL FOLLOW UP WITH AM LABS, CHEST XRAY, ABG, AND CONTINUE TO MONITOR. TIME SPENT ON CLINICAL ASSESSMENT, REVIEWING LABS AND IMAGING, DECISION MAKING, AND DOCUMENTATION GREATER THAN 45 MINUTES. - Past Medical Family Social History Past Med/Fam/Surg Hx: No changes since H&P Allergies: Allergies acetaminophen [From Darvocet-N] Allergy (Verified 04/03/20 09:40) aspirin Allergy (Verified 04/15/21 08:39) gelatin Allergy (Verified 03/24/21 17:34) oxycodone [From Percocet] Allergy (Verified 04/15/21 08:39) propoxyphene [From Darvocet-N] Allergy (Verified 04/03/20 09:40) - Review of Systems ROS: No change since H&P - Vital Signs and I&O's Vital Signs: Temperature 97.6 F Pulse Rate 93 Respiratory Rate 11 Blood Pressure [Right Arm] 122/58 Blood Pressure 103/53 O2 Sat by Pulse Oximetry 93 Intake and Output: Intake & Output 04/19/21 04/20/21 04/21/21 04/22/21 11:59 11:59 11:59 11:59 Intake Total 3300 / 3300 1930 / 1930 2514 / 2514 2767 / 2767 Output Total 700 / 700 1200 / 1200 Balance 3300 / 3300 1930 / 1930 1814 / 1814 1567 / 1567 - Physical Exam Oriented: Normal, Not Oriented Eyes: Normal Ear: Normal Nose: Normal Throat: Normal Respiratory: Normal, Diminished Cardiovascular: Normal : Normal Auscultation: Bowel Sounds: Decreased Palpation: Normal Tenderness: RLQ, LLQ, Other (soft abdomen with RT side tenderness , no rebound .. BS + but hypoactive .) Skin: Normal Musculoskeletal: Normal Psychiatric: Normal Mood Description: Calm Affect: Normal Speech Pattern: Clear, Appropriate - Laboratory and Diagnostics Result Diagrams: 04/22/21 04:45 04/22/21 04:45 Labs: 04/15/21 09:00 Blood Blood Culture - Final 04/15/21 09:00 Blood Blood Culture - Final Laboratory WBC 13.3 X10^3/uL (3.6-10.0) H 04/22/21 04:45 RBC 4.59 X10^6/uL (3.5-5.4) 04/22/21 04:45 Hgb 13.7 g/dL (12.0-16.0) 04/22/21 04:45 Hct 40.0 % (36.0-47.0) 04/22/21 04:45 MCV 87.1 fL (80.0-100.0) 04/22/21 04:45 MCH 29.9 pg (27.0-34.0) 04/22/21 04:45 MCHC 34.3 g/dL (33.0-35.0) 04/22/21 04:45 RDW 14.8 % (11.6-16.5) 04/22/21 04:45 Plt Count 221 X10^3/uL (150.0-450.0) 04/22/21 04:45 Plt Count Comment Adequate (ADEQUATE) 04/22/21 04:45 MPV 8.8 fL (7.4-11.0) 04/22/21 04:45 Neut % (Auto) 98.0 % (42.0-75.0) H 04/22/21 04:45 Lymph % (Auto) 1.2 % (21.0-51.0) L 04/22/21 04:45 [place] % (Auto) 0.6 % (0.0-13.0) 04/22/21 04:45 Eos % (Auto) 0.0 % (0.9-2.9) L 04/22/21 04:45 Baso % (Auto) 0.2 % (0.2-1.0) 04/22/21 04:45 Neut # (Auto) 13.0 x10^3/uL (2.2-4.8) H 04/22/21 04:45 Lymph # (Auto) 0.2 X10^3/uL (1.3-2.9) L 04/22/21 04:45 [place] # (Auto) 0.1 x10^3/uL (0.3-0.8) L 04/22/21 04:45 Eos # (Auto) 0.0 x10^3/uL (0.0-0.2) 04/22/21 04:45 Baso # (Auto) 0.0 X10^3/uL (0.0-0.1) 04/22/21 04:45 Absolute Nucleated RBC 0.0 /100WBC 04/22/21 04:45 Total Counted 100 04/22/21 04:45 Neutrophils % (Manual) 97 % (39-76) H 04/22/21 04:45 Band Neutrophils % 3 % (0-10) 04/20/21 05:27 Lymphocytes % (Manual) 3 % (13-43) L 04/22/21 04:45 Monocytes % (Manual) 3 % (4-9) L 04/21/21 04:53 Metamyelocytes % 4 04/18/21 04:59 Plt Morphology Comment Normal (NORMAL) 04/22/21 04:45 RBC Morphology Normal (NORMAL) 04/22/21 04:45 [place] Cells Slight A 04/20/21 05:27 PT 14.3 SECONDS (11.8-14.3) 04/15/21 08:45 INR Target Range - 04/15/21 08:45 INR 1.17 (0.8-1.3) 04/15/21 08:45 APTT 33.7 SECONDS (22.9-36.5) 04/15/21 08:45 PTT Comment - 04/15/21 08:45 D-Dimer 1.81 ug/ml (0.0-0.57) H* 04/19/21 04:15 Sample Site Rr 04/22/21 04:35 ABG pH 7.370 (7.35-7.45) 04/22/21 04:35 ABG pCO2 44.0 mmHg (35.0-45.0) 04/22/21 04:35 ABG pO2 69.0 mmHg (80.0-100.0) L 04/22/21 04:35 ABG HCO3 25.4 mmol/L (22-26) 04/22/21 04:35 ABG O2 Saturation 93.0 % (90-100) 04/22/21 04:35 ABG Base Excess -0.1 mmol/L (-2.0-2.0) 04/22/21 04:35 Jonathan Test Pos 04/22/21 04:35 A-a Gradient 518.0 mmHg 04/22/21 04:35 FiO2 90.0 04/22/21 04:35 Blood Gas Comments Est[place]an well ae 04/22/21 04:35 Sodium 145 mmol/L (136-145) 04/22/21 04:45 Corrected Sodium 146 mmol/L (136-145) H 04/22/21 04:45 Potassium 3.3 mmol/L (3.5-5.1) L 04/22/21 04:45 Chloride 109 mmol/L (98-107) H 04/22/21 04:45 Carbon Dioxide 26.7 mmol/L (21-32) 04/22/21 04:45 BUN 58 mg/dL (7-18) H 04/22/21 04:45 Creatinine 1.94 mg/dL (0.55-1.02) H 04/22/21 04:45 Est GFR (MDRD) Af Amer 32 (>60) L 04/22/21 04:45 Est GFR (MDRD) Non-Af 27 (>60) L 04/22/21 04:45 Glucose 149 mg/dL (65-99) H 04/22/21 04:45 POC Glucose (mg/dL) 155 mg/dL (65-99) H 04/17/21 15:19 Lactic Acid 2.4 mmol/L (0.4-2.0) H 04/22/21 04:45 Calcium 6.8 mg/dL (8.5-10.1) L 04/22/21 04:45 Corrected Calcium 8.3 mg/dL (8.5-10.1) L 04/21/21 23:00 Magnesium 2.3 mg/dL (1.7-2.9) 04/19/21 04:15 Ferritin 1726 ng/mL (8-252) H 04/15/21 08:45 Total Bilirubin 1.50 mg/dL (0.2-1.0) H 04/21/21 23:00 AST 94 Units/L (15-37) H 04/21/21 23:00 ALT 15 Units/L (12-78) 04/21/21 23:00 Alkaline Phosphatase 108 Units/L (46-116) 04/21/21 23:00 Creatine Kinase 281 Units/L (26-192) H 04/22/21 04:45 CK-MB (CK-2) 2.9 ng/mL (0-4.0) 04/22/21 04:45 CK/CKMB % Calc 1.0 % (<4) 04/22/21 04:45 Troponin I 0.11 ng/mL (0-1.5) 04/22/21 04:45 C-Reactive Protein 82.50 mg/L (0-3.0) H 04/22/21 04:35 B-Natriuretic Peptide 464 pg/mL (0-79) H 04/21/21 04:53 Total Protein 4.8 g/dL (6.4-8.2) L 04/21/21 23:00 Albumin 2.0 g/dL (3.4-5.0) L 04/21/21 23:00 Globulin 2.8 g/dL (2.5-4.5) 04/21/21 23:00 Albumin/Globulin Ratio 0.7 Ratio (1.1-2.1) L 04/21/21 23:00 Amylase 223 Units/L (25-115) H 04/21/21 23:00 Lipase 542 Units/L (73-393) H 04/21/21 23:00 Specimen Type Catherized urine 04/21/21 00:30 Urine Color Yellow (YELLOW) 04/21/21 00:30 Urine Appearance Clear (CLEAR) 04/21/21 00:30 Urine pH 6.0 (5.0 - 8.0) 04/21/21 00:30 Ur Specific [place] 1.010 (1.000-1.030) 04/21/21 00:30 Urine Protein 1+ (NEGATIVE) 04/21/21 00:30 Urine Glucose (UA) 1+ (NEGATIVE) 04/21/21 00:30 Urine Ketones Negative (NEGATIVE) 04/21/21 00:30 Urine Occult Blood 1+ (NEGATIVE) 04/21/21 00:30 Urine Nitrite Negative (NEGATIVE) 04/21/21 00:30 Urine Bilirubin Negative (NEGATIVE) 04/21/21 00:30 Urine Urobilinogen Normal (NORMAL) 04/21/21 00:30 Ur Leukocyte Esterase Negative (NEGATIVE) 04/21/21 00:30 Urine RBC None seen /HPF (0-3) 04/21/21 00:30 Urine WBC None seen /HPF (0-5) 04/21/21 00:30 Ur Squamous Epith Cells Negative /HPF (NEGATIVE) 04/21/21 00:30 Urine Bacteria Negative /HPF (NEGATIVE) 04/21/21 00:30 Ur Culture Indicated? No/not indicated 04/21/21 00:30 SARS-CoV-2 (PCR) Positive (NEGATIVE) A 04/15/21 08:44 Influenza Type A (PCR) Negative (NEGATIVE) 04/15/21 08:44 Influenza Type B (PCR) Negative (NEGATIVE) 04/15/21 08:44 RSV (PCR) Negative (NEGATIVE) 04/15/21 08:44 - Plan (1) Pneumonia due to COVID-19 virus Status: Acute Plan: SUPPLEMENTAL OXYGEN, 1/2NS WITH 20MEQ KCL AT 125 ML/HR, LEVAQUIN 500MG IV DAILY, ZOSYN, DOPAMINE DRIP, ASCORBIC ACID 1500MG IV Q6H, ALBUTEROL NEBS TID, PULMICORT NEBS BID, SOLU-MEDROL 80MG IV Q6H, ZOFRAN 4MG IV Q6H PRN, LOVENOX 30MG SC Q12H, LIPITOR 80MG PO HS, TESSALON PERLES 200MG PO TID, PEPCID 20MG PO DAILY, ROBITUSSIN DM 10ML PO QID PRN, HUMULIN R SLIDING SCALE, MORPHINE SULFATE 2MG IV Q4H PRN, FLUCONAZOLE 100MG PO DAILY, PROTONIX 40MG IV BID, THIAMINE 200MG IV BI D, ZINC SULFATE 220MG PO DAILY. PAIN MANAGEMENT (2) Hypoxia Status: Acute (3) Perforated abdominal viscus Status: Acute (4) Nausea & vomiting Status: Acute Qualifiers: Vomiting type: unspecified Vomiting Intractability: non-intractable Qualified Code(s): R11.2 - Nausea with vomiting, unspecified (5) Azotemia Status: Acute
[2021-04-22] MEDS: POTASSIUM CHLORIDE IV SCH ×6 (11:41→21:32)
[2021-04-22] MEDS: NS IV SCH ×6 (11:41→21:32)
[2021-04-22] MEDS: KCL IV SCH ×6 (11:41→21:32)
[2021-04-22 12:24] VITALS: BMI 29.4
[2021-04-22] MEDS: DOPAMINE IV PREMIX 400 MG/250 ML 400 MG/250 ML BAG IV PRN ×2 (18:07→23:57)
[2021-04-22] MEDS: LIPITOR TAB 80 MG PO SCH (21:27)
[2021-04-22] MEDS: XALATAN OP SCH (21:31)
[2021-04-23] MEDS ORDERED: NS 500 ML IV 500 ML IV ONE (00:37)
[2021-04-23] MEDS: DILAUDID INJ IVP PRN (00:42)
[2021-04-23] MEDS: ASCORBIC ACID INJ MULTI-DOSE VIAL 1,500 MG in NS 50 ML IV 50 ML IV SCH ×4 (02:37→20:15)
[2021-04-23] MEDS: SOLU-Medrol 40 MG VIAL IVP SCH ×4 (02:37→20:19)
[2021-04-23 04:39] LABS: ABG BASE EXCESS -6.3 mmol/L (-2.0-2.0)
[2021-04-23 04:40] LABS: ABG ALLEN TEST POS
[2021-04-23 05:19] LABS: BASOPHILS % (AUTO) 0.1 % (0.2-1.0); HEMATOCRIT 35.5 % (36.0-47.0); HEMOGLOBIN 11.9 g/dL (12.0-16.0); LYMPHOCYTES # (AUTO) 0.1 X10^3/uL (1.3-2.9); LYMPHOCYTES % (AUTO) 0.7 % (21.0-51.0); MEAN CORPUSCULAR HEMOGLOBIN 29.7 pg (27.0-34.0); MEAN CORPUSCULAR HGB CONC 33.6 g/dL (33.0-35.0); MEAN CORPUSCULAR VOLUME 88.6 fL (80.0-100.0); MEAN PLATELET VOLUME 9.2 fL (7.4-11.0); MONOCYTES # (AUTO) 0.3 x10^3/uL (0.3-0.8); MONOCYTES % (AUTO) 1.3 % (0.0-13.0); NEUTROPHILS # (AUTO) 18.6 x10^3/uL (2.2-4.8); NEUTROPHILS % (AUTO) 97.9 % (42.0-75.0); PLATELET COUNT 149 X10^3/uL (150.0-450.0); RED BLOOD COUNT 4.01 X10^6/uL (3.5-5.4); RED CELL DISTRIBUTION WIDTH 14.9 % (11.6-16.5)
[2021-04-23] MEDS: ACCUNEB 1.25 MG NEBULE NEB SCH ×3 (05:27→20:58)
[2021-04-23 05:31] LABS: ALBUMIN 1.5 g/dL (3.4-5.0); CALCIUM 6.5 mg/dL (8.5-10.1); CARBON DIOXIDE 21.4 mmol/L (21-32); COR CA(FOR HYPOALB) 8.5 mg/dL (8.5-10.1); CREATININE 3.13 mg/dL (0.55-1.02)
[2021-04-23 06:10] LABS: PLATELET MORPHOLOGY COMMENT NORMAL (NORMAL)
--- NOTE | 2021-04-23 06:15 | RAD ---
HISTORYShortness of breathSTUDYChest AP [id number]/20/2021FINDINGSHear t size remains normal. Diffuse bilateral ground-glass and alveolar infiltrates are unchanged considering a difference in film technique when compared to the prior examination. No pleural effusions or pneumothoraces are identified. Bony thorax is unremarkable.IMPRESSIONNo change diffuse bilateral ground-glass and alveolar infiltrates when compared to the prior examinationElectronically signed by: DEAN KNIGHT (Apr 23, 2021 06:13:53)
[2021-04-23] MEDS: NS IV SCH ×2 (06:40)
[2021-04-23] MEDS: POTASSIUM CHLORIDE IV SCH ×2 (06:40)
[2021-04-23] MEDS: KCL IV SCH ×2 (06:40)
[2021-04-23] MEDS: TESSALON PERLES PO SCH ×3 (06:41→21:27)
[2021-04-23] MEDS: ZOSYN VIAL 3.375 GRAMS 3.375 G in NS 100 ML IV + SPIKE MINIBAG* 100 ML IV SCH (06:46)
[2021-04-23] MEDS ORDERED: NS 1000 ML 1,000 ML IV SCH (08:38)
[2021-04-23] MEDS ORDERED: NS 1000 ML 1,000 ML ONE (08:42)
[2021-04-23] MEDS ORDERED: NS IV ONE (09:06)
[2021-04-23] MEDS: LOVENOX INJ 30 MG SYR SC SCH (09:22)
[2021-04-23] MEDS: PEPCID 20 MG IV PREMIX* 20 MG/50 ML BAG IV SCH ×2 (09:22→20:15)
[2021-04-23] MEDS: PROTONIX INJ 40 MG VIAL IVP SCH ×2 (09:23→20:16)
[2021-04-23] MEDS: THIAMINE HCL INJ IVP SCH ×2 (09:24→20:20)
[2021-04-23] MEDS ORDERED: NS 1/2 1000 ML IV 1,000 ML IV ONE ×4 (09:24→18:13)
[2021-04-23] MEDS: PULMICORT NEB TX 0.5 MG NEB SCH ×2 (09:45→20:58)
--- NOTE | 2021-04-23 09:50 | DR.PROGNOT ---
Hospital Progress Notes - Progress Note for Day of: Progress Note Date: 04/23/21 - Chief Complaint Chief Complaint: Pt is alert , c/o moderate RLQ abdominal pain . still with SOB . had small BM . BUN / Creat are high with poor urine output .. - Past Medical Family Social History Past Med/Fam/Surg Hx: No changes since H&P Allergies: Allergies acetaminophen [From Darvocet-N] Allergy (Verified 04/03/20 09:40) aspirin Allergy (Verified 04/15/21 08:39) gelatin Allergy (Verified 03/24/21 17:34) oxycodone [From Percocet] Allergy (Verified 04/15/21 08:39) propoxyphene [From Darvocet-N] Allergy (Verified 04/03/20 09:40) - Review Of Systems ROS: No change since H&P - Vital Signs Vital Signs: Temperature 98.7 F Pulse Rate 94 Respiratory Rate 14 Blood Pressure [Right Arm] 122/58 Blood Pressure 138/92 O2 Sat by Pulse Oximetry 91 - Physical Exam Oriented: Normal, Not Oriented Eyes: Normal Ear: Normal Nose: Normal Throat: Normal Respiratory: Normal, Diminished Cardiovascular: Normal : Normal GI:Auscultation: Decreased GI:Palpation: Normal GI: Tenderness: RLQ, LLQ, Other (diffuse tenderness with mild rebound .. BS hypo active .) Skin: Normal Musculoskeletal: Normal Psychiatric: Normal Mood Description: Flat Affect: Normal Speech Pattern: Unclear - Laboratory and Diagnostics Result Diagrams: 04/23/21 04:45 04/23/21 04:45 Labs: 04/15/21 09:00 Blood Blood Culture - Final 04/15/21 09:00 Blood Blood Culture - Final Laboratory WBC 19.0 X10^3/uL (3.6-10.0) H 04/23/21 04:45 RBC 4.01 X10^6/uL (3.5-5.4) 04/23/21 04:45 Hgb 11.9 g/dL (12.0-16.0) L 04/23/21 04:45 Hct 35.5 % (36.0-47.0) L 04/23/21 04:45 MCV 88.6 fL (80.0-100.0) 04/23/21 04:45 MCH 29.7 pg (27.0-34.0) 04/23/21 04:45 MCHC 33.6 g/dL (33.0-35.0) 04/23/21 04:45 RDW 14.9 % (11.6-16.5) 04/23/21 04:45 Plt Count 149 X10^3/uL (150.0-450.0) L 04/23/21 04:45 Plt Count Comment Decreased (ADEQUATE) A 04/23/21 04:45 MPV 9.2 fL (7.4-11.0) 04/23/21 04:45 Neut % (Auto) 97.9 % (42.0-75.0) H 04/23/21 04:45 Lymph % (Auto) 0.7 % (21.0-51.0) L 04/23/21 04:45 [place] % (Auto) 1.3 % (0.0-13.0) 04/23/21 04:45 Eos % (Auto) 0.0 % (0.9-2.9) L 04/23/21 04:45 Baso % (Auto) 0.1 % (0.2-1.0) L 04/23/21 04:45 Neut # (Auto) 18.6 x10^3/uL (2.2-4.8) H 04/23/21 04:45 Lymph # (Auto) 0.1 X10^3/uL (1.3-2.9) L 04/23/21 04:45 [place] # (Auto) 0.3 x10^3/uL (0.3-0.8) 04/23/21 04:45 Eos # (Auto) 0.0 x10^3/uL (0.0-0.2) 04/23/21 04:45 Baso # (Auto) 0.0 X10^3/uL (0.0-0.1) 04/23/21 04:45 Absolute Nucleated RBC 0.0 /100WBC 04/23/21 04:45 Total Counted 100 04/23/21 04:45 Neutrophils % (Manual) 95 % (39-76) H 04/23/21 04:45 Band Neutrophils % 3 % (0-10) 04/20/21 05:27 Lymphocytes % (Manual) 5 % (13-43) L 04/23/21 04:45 Monocytes % (Manual) 3 % (4-9) L 04/21/21 04:53 Metamyelocytes % 4 04/18/21 04:59 Plt Morphology Comment Normal (NORMAL) 04/23/21 04:45 RBC Morphology Normal (NORMAL) 04/23/21 04:45 [place] Cells Slight A 04/20/21 05:27 PT 14.3 SECONDS (11.8-14.3) 04/15/21 08:45 INR Target Range - 04/15/21 08:45 INR 1.17 (0.8-1.3) 04/15/21 08:45 APTT 33.7 SECONDS (22.9-36.5) 04/15/21 08:45 PTT Comment - 04/15/21 08:45 D-Dimer 1.81 ug/ml (0.0-0.57) H* 04/19/21 04:15 Sample Site Rr 04/23/21 04:34 ABG pH 7.250 (7.35-7.45) L 04/23/21 04:34 ABG pCO2 48.0 mmHg (35.0-45.0) H 04/23/21 04:34 ABG pO2 74.0 mmHg (80.0-100.0) L 04/23/21 04:34 ABG HCO3 21.0 mmol/L (22-26) L 04/23/21 04:34 ABG O2 Saturation 92.0 % (90-100) 04/23/21 04:34 ABG Base Excess -6.3 mmol/L (-2.0-2.0) L 04/23/21 04:34 Jonathan Test Pos 04/23/21 04:34 A-a Gradient 508.0 mmHg 04/23/21 04:34 FiO2 90.0 04/23/21 04:34 Blood Gas Comments Estevan well ae 04/23/21 04:34 Sodium 149 mmol/L (136-145) H 04/23/21 04:45 Corrected Sodium 150 mmol/L (136-145) H 04/23/21 04:45 Potassium 5.3 mmol/L (3.5-5.1) H 04/23/21 04:45 Chloride 112 mmol/L (98-107) H 04/23/21 04:45 Carbon Dioxide 21.4 mmol/L (21-32) 04/23/21 04:45 BUN 74 mg/dL (7-18) H 04/23/21 04:45 Creatinine 3.13 mg/dL (0.55-1.02) H 04/23/21 04:45 Est GFR (MDRD) Af Amer 19 (>60) L 04/23/21 04:45 Est GFR (MDRD) Non-Af 15 (>60) L 04/23/21 04:45 Glucose 133 mg/dL (65-99) H 04/23/21 04:45 POC Glucose (mg/dL) 155 mg/dL (65-99) H 04/17/21 15:19 Lactic Acid 1.3 mmol/L (0.4-2.0) 04/23/21 07:26 Calcium 6.5 mg/dL (8.5-10.1) L 04/23/21 04:45 Corrected Calcium 8.5 mg/dL (8.5-10.1) 04/23/21 04:45 Magnesium 2.0 mg/dL (1.7-2.9) 04/22/21 04:45 Ferritin 1726 ng/mL (8-252) H 04/15/21 08:45 Total Bilirubin 3.60 mg/dL (0.2-1.0) H 04/23/21 04:45 AST 111 Units/L (15-37) H 04/23/21 04:45 ALT 14 Units/L (12-78) 04/23/21 04:45 Alkaline Phosphatase 84 Units/L (46-116) 04/23/21 04:45 Creatine Kinase 281 Units/L (26-192) H 04/22/21 04:45 CK-MB (CK-2) 2.9 ng/mL (0-4.0) 04/22/21 04:45 CK/CKMB % Calc 1.0 % (<4) 04/22/21 04:45 Troponin I 0.11 ng/mL (0-1.5) 04/22/21 04:45 C-Reactive Protein 323.60 mg/L (0-3.0) H 04/23/21 04:45 B-Natriuretic Peptide 464 pg/mL (0-79) H 04/21/21 04:53 Total Protein 5.0 g/dL (6.4-8.2) L 04/23/21 04:45 Albumin 1.5 g/dL (3.4-5.0) L 04/23/21 04:45 Globulin 3.5 g/dL (2.5-4.5) 04/23/21 04:45 Albumin/Globulin Ratio 0.4 Ratio (1.1-2.1) L 04/23/21 04:45 Amylase 223 Units/L (25-115) H 04/21/21 23:00 Lipase 542 Units/L (73-393) H 04/21/21 23:00 Specimen Type Catherized urine 04/21/21 00:30 Urine Color Yellow (YELLOW) 04/21/21 00:30 Urine Appearance Clear (CLEAR) 04/21/21 00:30 Urine pH 6.0 (5.0 - 8.0) 04/21/21 00:30 Ur Specific [place] 1.010 (1.000-1.030) 04/21/21 00:30 Urine Protein 1+ (NEGATIVE) 04/21/21 00:30 Urine Glucose (UA) 1+ (NEGATIVE) 04/21/21 00:30 Urine Ketones Negative (NEGATIVE) 04/21/21 00:30 Urine Occult Blood 1+ (NEGATIVE) 04/21/21 00:30 Urine Nitrite Negative (NEGATIVE) 04/21/21 00:30 Urine Bilirubin Negative (NEGATIVE) 04/21/21 00:30 Urine Urobilinogen Normal (NORMAL) 04/21/21 00:30 Ur Leukocyte Esterase Negative (NEGATIVE) 04/21/21 00:30 Urine RBC None seen /HPF (0-3) 04/21/21 00:30 Urine WBC None seen /HPF (0-5) 04/21/21 00:30 Ur Squamous Epith Cells Negative /HPF (NEGATIVE) 04/21/21 00:30 Urine Bacteria Negative /HPF (NEGATIVE) 04/21/21 00:30 Ur Culture Indicated? No/not indicated 04/21/21 00:30 SARS-CoV-2 (PCR) Positive (NEGATIVE) A 04/15/21 08:44 Influenza Type A (PCR) Negative (NEGATIVE) 04/15/21 08:44 Influenza Type B (PCR) Negative (NEGATIVE) 04/15/21 08:44 RSV (PCR) Negative (NEGATIVE) 04/15/21 08:44 - Assessment and Plan 1: sealed perforated bowel ( Covid ischemia ). Covid pneumonia . EKG changes with ischemia. dehydration and Azotemia. chronic cholecystitis . recent small bowel resection for isolated perforated small bowel . ( no malignancy , IBD , or ischemia ). same conservative treatment and pulmonary care . repeat lab work . Pt is still critical and not stable for surgery now .. d/w family and DR Saeed .in details - Problem Patient Problems: Patient Problems Nausea & vomiting (Acute) R11.2 COVID-19 (Acute) U07.1 Azotemia (Acute) R79.89 Hypoxemia (Acute) R09.02 Pneumonia due to COVID-19 virus (Acute) U07.1, J12.82 Hypoxia (Acute) R09.02 Perforated abdominal viscus (Acute) R19.8
[2021-04-23 09:54] LABS: BILIRUBIN,URINE NEGATIVE (NEGATIVE); BLOOD/HEMOGLOBIN,URINE 1+ (NEGATIVE); GLUCOSE, URINE NEGATIVE (NEGATIVE); KETONES,URINE 1+ (NEGATIVE); LEUKOCYTE ESTERASE ,URINE NEGATIVE (NEGATIVE); NITRITES,URINE NEGATIVE (NEGATIVE); PROTEIN,URINE 3+ (NEGATIVE); UROBILINOGEN,URINE NORMAL (NORMAL)
[2021-04-23] MEDS: NS 1/2 1000 ML IV 1,000 ML IV SCH ×2 (10:00→18:07)
[2021-04-23] MEDS ORDERED: DIFLUCAN 200 MG IV PREMIX* 200 MG/100 ML BAG IV ONE (10:00)
[2021-04-23] MEDS ORDERED: NS 100 ML IV 100 ML ONE ×2 (10:07→14:03)
[2021-04-23 10:20] LABS: APPEARANCE,URINE HAZY (CLEAR); COLOR,URINE YELLOW (YELLOW)
[2021-04-23 10:21] LABS: RBC,URINE 0-2 /HPF (0-3)
[2021-04-23 10:22] LABS: BACTERIA,URINE NEGATIVE /HPF (NEGATIVE); SQUAMOUS EPITHELIAL CELL,UR RARE /HPF (NEGATIVE)
[2021-04-23 10:23] LABS: AMORPHOUS SEDIMENT,UR 1+ /HPF (NEGATIVE); CALCIUM OXALATE CRYSTALS,UR FEW /HPF (NEGATIVE); GRANULAR CASTS,URINE RARE /LPF (NEGATIVE)
[2021-04-23] MEDS: ALBUMIN HUMAN 25%- 100 ML 100 ML IV SCH (10:26)
--- NOTE | 2021-04-23 10:41 | PCM.PROG ---
Progress Note - Progress Note for Day of Date of Exam: 04/23/21 - Subjective Subjective: MS. OLIVEROS IS BEING TREATED FOR COVID PNEUMONIA, HYPOXIA, PERFORATED VISCOUS, NAUSEA/VOMITING, ABDOMINAL PAIN, AND AZOTEMIA. SHE HAD A BOWEL RESECTION ABOUT A MONTH AGO FOR PERFORATED BOWEL. TODAY, SHE IS LYING IN THE BED ON MORNING ROUNDS. SHE IS UTILIZING THE BIPAP THIS MORNING. SHE REPORTS SLIGHT IMPROVEMENT IN PAIN TODAY. SATURATIONS HAVE BEEN IN THE 90s THIS MORNING AND THROUGHOUT THE NIGHT. SHE REMAINS ON THE DOPAMINE DRIP. ON EXAMINATION, HEART IS REGULAR IN RATE AND RHYTHM. BILATERAL LUNGS ARE NOTED WITH WHEEZING THROUGHOUT. ABDOMEN IS ROUND, SOFT, AND NOTED WITH RIGHT SIDED TENDERNESS TO PALPATION. HYPOACTIVE BOWEL SOUNDS NOTED IN ALL QUADRANTS. HER VITALS THIS MORNING ARE: 98. 7-94-14-91%-138/92. LABS WERE OBTAINED. ABNORMAL LAB VALUES INCLUDE THE FOLLOWING: WBC 19.0, HGB 11.9, HCT 35.5, PLT COUNT 149, SODIUM 149, POTASSIUM 5.3, CHLORIDE 112, BUN 74, CREATININE 3.13, GLUCOSE 133, CALCIUM 6.5, TOTAL BILI 3.60, AST 111, CRP 323.60, TOTAL PROTEIN 5.0, ALBUMIN 1.5. ABG REVEALED: PH 7.250, PC02 48, P02 74, HC03 21.0, BASE EXCESS 92, A-A GRADIENT 508, FI02 90. A CHEST XRAY WAS OBTAINED AND REVEALED: Heart size remains normal. Diffuse bilateral ground-glass and alveolar infiltrates are unchanged considering a difference in film technique when compared to the prior examination. No pleural effusions or pneumothoraces are identified. Bony thorax is unremarkable. TOAY, WE WILL BOLUS 2 LITERS OF 1/2NS, THEN RUN FLUIDS AT 150 ML/HR, START ALBUMIN 25% IV DAILY, CHANGE DIFLUCAN TO 200MG IV DAILY, ADD PEPCID 20MG IV BID, MYCOLOG CREAM TID, AND OBTAIN A KUB AND REPEAT URINALYSIS. WE WILL OBTAIN STOOL AND BLOOD CULTURES. OTHERWISE, WE WILL CONTINUE WITH IV ANTIBIOTICS, RESPIRATORY THERAPY, NEB TX, INSULINS, STEROIDS, AND CURRENT PLAN OF CARE TODAY. WILL CONTINUE TO MONITOR PATIENT CLOSELY. OTHERWISE, WE WILL FOLLOW UP WITH AM LABS, CHEST XRAY, ABG, AND CONTINUE TO MONITOR. TIME SPENT ON CLINICAL ASSESSMENT, REVIEWING LABS AND IMAGING, DECISION MAKING, AND DOCUMENTATION GREATER THAN 45 MINUTES. - Past Medical Family Social History Past Med/Fam/Surg Hx: No changes since H&P Allergies: Allergies acetaminophen [From Darvocet-N] Allergy (Verified 04/03/20 09:40) aspirin Allergy (Verified 04/15/21 08:39) gelatin Allergy (Verified 03/24/21 17:34) oxycodone [From Percocet] Allergy (Verified 04/15/21 08:39) propoxyphene [From Darvocet-N] Allergy (Verified 04/03/20 09:40) - Review of Systems ROS: No change since H&P - Vital Signs and I&O's Vital Signs: Temperature 98.7 F Pulse Rate 94 Respiratory Rate 14 Blood Pressure [Right Arm] 122/58 Blood Pressure 138/92 O2 Sat by Pulse Oximetry 91 Intake and Output: Intake & Output 04/20/21 04/21/21 04/22/21 04/23/21 11:59 11:59 11:59 11:59 Intake Total 1930 2514 / 2514 2802 / 2802 4847 / 4847 Output Total 700 / 700 1200 / 1200 425 / 425 Balance 1930 1814 / 1814 1602 / 1602 4422 / 4422 - Physical Exam Oriented: Normal, Not Oriented Eyes: Normal Ear: Normal Nose: Normal Throat: Normal Respiratory: Normal, Diminished Cardiovascular: Normal : Normal Auscultation: Bowel Sounds: Decreased Palpation: Normal Tenderness: RLQ, LLQ, Other (diffuse tenderness with mild rebound .. BS hypo active .) Skin: Normal Musculoskeletal: Normal Psychiatric: Normal Mood Description: Flat Affect: Normal Speech Pattern: Unclear - Laboratory and Diagnostics Result Diagrams: 04/23/21 04:45 04/23/21 04:45 Labs: 04/15/21 09:00 Blood Blood Culture - Final 04/15/21 09:00 Blood Blood Culture - Final Laboratory WBC 19.0 X10^3/uL (3.6-10.0) H 04/23/21 04:45 RBC 4.01 X10^6/uL (3.5-5.4) 04/23/21 04:45 Hgb 11.9 g/dL (12.0-16.0) L 04/23/21 04:45 Hct 35.5 % (36.0-47.0) L 04/23/21 04:45 MCV 88.6 fL (80.0-100.0) 04/23/21 04:45 MCH 29.7 pg (27.0-34.0) 04/23/21 04:45 MCHC 33.6 g/dL (33.0-35.0) 04/23/21 04:45 RDW 14.9 % (11.6-16.5) 04/23/21 04:45 Plt Count 149 X10^3/uL (150.0-450.0) L 04/23/21 04:45 Plt Count Comment Decreased (ADEQUATE) A 04/23/21 04:45 MPV 9.2 fL (7.4-11.0) 04/23/21 04:45 Neut % (Auto) 97.9 % (42.0-75.0) H 04/23/21 04:45 Lymph % (Auto) 0.7 % (21.0-51.0) L 04/23/21 04:45 [place] % (Auto) 1.3 % (0.0-13.0) 04/23/21 04:45 Eos % (Auto) 0.0 % (0.9-2.9) L 04/23/21 04:45 Baso % (Auto) 0.1 % (0.2-1.0) L 04/23/21 04:45 Neut # (Auto) 18.6 x10^3/uL (2.2-4.8) H 04/23/21 04:45 Lymph # (Auto) 0.1 X10^3/uL (1.3-2.9) L 04/23/21 04:45 [place] # (Auto) 0.3 x10^3/uL (0.3-0.8) 04/23/21 04:45 Eos # (Auto) 0.0 x10^3/uL (0.0-0.2) 04/23/21 04:45 Baso # (Auto) 0.0 X10^3/uL (0.0-0.1) 04/23/21 04:45 Absolute Nucleated RBC 0.0 /100WBC 04/23/21 04:45 Total Counted 100 04/23/21 04:45 Neutrophils % (Manual) 95 % (39-76) H 04/23/21 04:45 Band Neutrophils % 3 % (0-10) 04/20/21 05:27 Lymphocytes % (Manual) 5 % (13-43) L 04/23/21 04:45 Monocytes % (Manual) 3 % (4-9) L 04/21/21 04:53 Metamyelocytes % 4 04/18/21 04:59 Plt Morphology Comment Normal (NORMAL) 04/23/21 04:45 RBC Morphology Normal (NORMAL) 04/23/21 04:45 [place] Cells Slight A 04/20/21 05:27 PT 14.3 SECONDS (11.8-14.3) 04/15/21 08:45 INR Target Range - 04/15/21 08:45 INR 1.17 (0.8-1.3) 04/15/21 08:45 APTT 33.7 SECONDS (22.9-36.5) 04/15/21 08:45 PTT Comment - 04/15/21 08:45 D-Dimer 1.81 ug/ml (0.0-0.57) H* 04/19/21 04:15 Sample Site Rr 04/23/21 04:34 ABG pH 7.250 (7.35-7.45) L 04/23/21 04:34 ABG pCO2 48.0 mmHg (35.0-45.0) H 04/23/21 04:34 ABG pO2 74.0 mmHg (80.0-100.0) L 04/23/21 04:34 ABG HCO3 21.0 mmol/L (22-26) L 04/23/21 04:34 ABG O2 Saturation 92.0 % (90-100) 04/23/21 04:34 ABG Base Excess -6.3 mmol/L (-2.0-2.0) L 04/23/21 04:34 Jonathan Test Pos 04/23/21 04:34 A-a Gradient 508.0 mmHg 04/23/21 04:34 FiO2 90.0 04/23/21 04:34 Blood Gas Comments Estevan well ae 04/23/21 04:34 Sodium 149 mmol/L (136-145) H 04/23/21 04:45 Corrected Sodium 150 mmol/L (136-145) H 04/23/21 04:45 Potassium 5.3 mmol/L (3.5-5.1) H 04/23/21 04:45 Chloride 112 mmol/L (98-107) H 04/23/21 04:45 Carbon Dioxide 21.4 mmol/L (21-32) 04/23/21 04:45 BUN 74 mg/dL (7-18) H 04/23/21 04:45 Creatinine 3.13 mg/dL (0.55-1.02) H 04/23/21 04:45 Est GFR (MDRD) Af Amer 19 (>60) L 04/23/21 04:45 Est GFR (MDRD) Non-Af 15 (>60) L 04/23/21 04:45 Glucose 133 mg/dL (65-99) H 04/23/21 04:45 POC Glucose (mg/dL) 155 mg/dL (65-99) H 04/17/21 15:19 Lactic Acid 1.3 mmol/L (0.4-2.0) 04/23/21 07:26 Calcium 6.5 mg/dL (8.5-10.1) L 04/23/21 04:45 Corrected Calcium 8.5 mg/dL (8.5-10.1) 04/23/21 04:45 Magnesium 2.0 mg/dL (1.7-2.9) 04/22/21 04:45 Ferritin 1726 ng/mL (8-252) H 04/15/21 08:45 Total Bilirubin 3.60 mg/dL (0.2-1.0) H 04/23/21 04:45 AST 111 Units/L (15-37) H 04/23/21 04:45 ALT 14 Units/L (12-78) 04/23/21 04:45 Alkaline Phosphatase 84 Units/L (46-116) 04/23/21 04:45 Creatine Kinase 281 Units/L (26-192) H 04/22/21 04:45 CK-MB (CK-2) 2.9 ng/mL (0-4.0) 04/22/21 04:45 CK/CKMB % Calc 1.0 % (<4) 04/22/21 04:45 Troponin I 0.11 ng/mL (0-1.5) 04/22/21 04:45 C-Reactive Protein 323.60 mg/L (0-3.0) H 04/23/21 04:45 B-Natriuretic Peptide 464 pg/mL (0-79) H 04/21/21 04:53 Total Protein 5.0 g/dL (6.4-8.2) L 04/23/21 04:45 Albumin 1.5 g/dL (3.4-5.0) L 04/23/21 04:45 Globulin 3.5 g/dL (2.5-4.5) 04/23/21 04:45 Albumin/Globulin Ratio 0.4 Ratio (1.1-2.1) L 04/23/21 04:45 Amylase 223 Units/L (25-115) H 04/21/21 23:00 Lipase 542 Units/L (73-393) H 04/21/21 23:00 Specimen Type Catherized urine 04/23/21 09:11 Urine Color Yellow (YELLOW) 04/23/21 09:11 Urine Appearance Hazy (CLEAR) 04/23/21 09:11 Urine pH 5.0 (5.0 - 8.0) 04/23/21 09:11 Ur Specific [place] 1.025 (1.000-1.030) 04/23/21 09:11 Urine Protein 3+ (NEGATIVE) 04/23/21 09:11 Urine Glucose (UA) Negative (NEGATIVE) 04/23/21 09:11 Urine Ketones 1+ (NEGATIVE) 04/23/21 09:11 Urine Occult Blood 1+ (NEGATIVE) 04/23/21 09:11 Urine Nitrite Negative (NEGATIVE) 04/23/21 09:11 Urine Bilirubin Negative (NEGATIVE) 04/23/21 09:11 Urine Urobilinogen Normal (NORMAL) 04/23/21 09:11 Ur Leukocyte Esterase Negative (NEGATIVE) 04/23/21 09:11 Urine RBC 0-2 /HPF (0-3) 04/23/21 09:11 Urine WBC 0-2 /HPF (0-5) 04/23/21 09:11 Ur Squamous Epith Cells Rare /HPF (NEGATIVE) 04/23/21 09:11 Calcium Oxalate Crystal Few /HPF (NEGATIVE) 04/23/21 09:11 Amorphous Sediment 1+ /HPF (NEGATIVE) 04/23/21 09:11 Urine Bacteria Negative /HPF (NEGATIVE) 04/23/21 09:11 Granular Casts Rare /LPF (NEGATIVE) 04/23/21 09:11 Ur Culture Indicated? No/not indicated 04/23/21 09:11 SARS-CoV-2 (PCR) Positive (NEGATIVE) A 04/15/21 08:44 Influenza Type A (PCR) Negative (NEGATIVE) 04/15/21 08:44 Influenza Type B (PCR) Negative (NEGATIVE) 04/15/21 08:44 RSV (PCR) Negative (NEGATIVE) 04/15/21 08:44 - Plan (1) Pneumonia due to COVID-19 virus Status: Acute Plan: SUPPLEMENTAL OXYGEN, ALBUMIN 25% IV DAILY, 1/2NS BOLUS X 2, 1/2NS AT 150 ML/HR, LEVAQUIN 500MG IV DAILY, ZOSYN, DOPAMINE DRIP, ASCORBIC ACID 1500MG IV Q6H, ALBUTEROL NEBS TID, PULMICORT NEBS BID, SOLU-MEDROL 80MG IV Q6H, ZOFRAN 4MG IV Q6H PRN, LOVENOX 30MG SC Q12H, LIPITOR 80MG PO HS, TESSALON PERLES 200MG PO TID, PEPCID 20MG PO DAILY, ROBITUSSIN DM 10ML PO QID PRN, HUMULIN R SLIDING SCALE, MORPHINE SULFATE 2MG IV Q4H PRN, FLUCONAZOLE 100MG IV DAILY, PROTONIX 40MG IV BID, THIAMINE 200MG IV BID, ZINC SULFATE 220MG PO DAILY. PAIN MANAGEMENT (2) Hypoxia Status: Acute (3) Perforated abdominal viscus Status: Acute (4) Nausea & vomiting Status: Acute Qualifiers: Vomiting type: unspecified Vomiting Intractability: non-intractable Qualified Code(s): R11.2 - Nausea with vomiting, unspecified (5) Azotemia Status: Acute
[2021-04-23] MEDS: LEVAQUIN PREMIX IV 250 MG 250 MG/50 ML BAG IV SCH (11:22)
[2021-04-23] MEDS: TIMOPTIC 0.5% EYE DROPS OP SCH (11:25)
[2021-04-23] MEDS: VITAMIN D3 125 mcg (5,000 UNITS) PO SCH (11:25)
[2021-04-23] MEDS: ZINC SULFATE PO SCH (11:26)
[2021-04-23] MEDS: MYCOLOG-II CREAM TOP SCH ×3 (11:26→22:08)
[2021-04-23] MEDS: ZOSYN VIAL 2.25 GRAMS 2.25 G in NS 100 ML IV + SPIKE MINIBAG* 100 ML IV SCH ×2 (14:16→22:09)
--- NOTE | 2021-04-23 14:51 | RAD ---
HISTORY:Perforated viscusStudy: KUBComparison:CT 04/21/2021FINDINGS/IMPRESSION:Only supine views are submitted. Bowel gas pattern is nonobstructive. There is some lucency below the diaphragms in keeping with history of bowel perforation. There are bibasilar lung infiltrates also noted.Electronically signed by: MICHEAL GAITAN (Apr 23, 2021 14:48:30)
[2021-04-23 15:11] LABS: CARBON DIOXIDE 19.4 mmol/L (21-32); COR CA(FOR HYPOALB) 7.6 mg/dL (8.5-10.1); CREATININE 3.48 mg/dL (0.55-1.02)
[2021-04-23] MEDS: MORPHINE SULFATE INJ 2 MG INJ IVP PRN ×4 (16:17→22:04)
[2021-04-23] MEDS: LIPITOR TAB 80 MG PO SCH (20:08)
[2021-04-23] MEDS: XALATAN OP SCH (20:21)
[2021-04-23] MEDS: TORADOL 15 MG VIAL IVP PRN (20:38)
[2021-04-24] MEDS ORDERED: NS 1/2 1000 ML IV 1,000 ML IV ONE ×3 (01:30→06:08)
[2021-04-24] MEDS: NS 1/2 1000 ML IV 1,000 ML IV SCH (01:32)
[2021-04-24] MEDS: MORPHINE SULFATE INJ 2 MG INJ IVP PRN (02:13)
[2021-04-24] MEDS: ASCORBIC ACID INJ MULTI-DOSE VIAL 1,500 MG in NS 50 ML IV 50 ML IV SCH ×4 (02:35→20:54)
[2021-04-24] MEDS: SOLU-Medrol 40 MG VIAL IVP SCH ×4 (02:36→20:55)
[2021-04-24 05:27] LABS: BASOPHILS % (AUTO) 0.1 % (0.2-1.0); HEMATOCRIT 35.1 % (36.0-47.0); HEMOGLOBIN 11.4 g/dL (12.0-16.0); LYMPHOCYTES # (AUTO) 0.4 X10^3/uL (1.3-2.9); LYMPHOCYTES % (AUTO) 1.3 % (21.0-51.0); MEAN CORPUSCULAR HEMOGLOBIN 29.9 pg (27.0-34.0); MEAN CORPUSCULAR HGB CONC 32.4 g/dL (33.0-35.0); MEAN CORPUSCULAR VOLUME 92.3 fL (80.0-100.0); MEAN PLATELET VOLUME 9.6 fL (7.4-11.0); MONOCYTES # (AUTO) 0.6 x10^3/uL (0.3-0.8); NEUTROPHILS # (AUTO) 27.9 x10^3/uL (2.2-4.8); NEUTROPHILS % (AUTO) 96.6 % (42.0-75.0); PLATELET COUNT 148 X10^3/uL (150.0-450.0); RED BLOOD COUNT 3.81 X10^6/uL (3.5-5.4); RED CELL DISTRIBUTION WIDTH 15.8 % (11.6-16.5)
--- NOTE | 2021-04-24 05:30 | RAD ---
HISTORYSOBSTUDYCHEST, 1 [id number]/21/2021FINDINGSThe trachea is midline. The cardiac silhouette is unremarkable. Diffuse bilateral ground-glass and alveolar infiltrates remain unchanged. No pneumothorax.. The bony thorax is unremarkable.IMPRESSIONStable portable chestElectronically signed by: Kj Mathias (Apr 24, 2021 05:28:59)
[2021-04-24] MEDS: TESSALON PERLES PO SCH ×3 (05:34→22:46)
[2021-04-24] MEDS: ZOSYN VIAL 2.25 GRAMS 2.25 G in NS 100 ML IV + SPIKE MINIBAG* 100 ML IV SCH (05:34)
[2021-04-24] MEDS: MYCOLOG-II CREAM TOP SCH ×3 (05:34→20:15)
[2021-04-24 05:37] LABS: ABG BASE EXCESS -16.7 mmol/L (-2.0-2.0)
[2021-04-24 05:37] LABS: ALBUMIN 1.9 g/dL (3.4-5.0); CALCIUM 6.2 mg/dL (8.5-10.1); CARBON DIOXIDE 16.3 mmol/L (21-32); COR CA(FOR HYPOALB) 7.9 mg/dL (8.5-10.1); CREATININE 4.16 mg/dL (0.55-1.02); TOTAL PROTEIN 5.7 g/dL (6.4-8.2)
[2021-04-24 05:38] LABS: ABG HCO3 13.8 mmol/L (22-26)
[2021-04-24 05:39] LABS: ABG ALLEN TEST POS
[2021-04-24] MEDS ORDERED: SODIUM BICARBONATE 8.4% INJ ADULT 100 ML in NS 1/2 1000 ML IV 1,000 ML IV ONE (06:00)
[2021-04-24] MEDS ORDERED: SODIUM BICARBONATE 8.4% INJ ADULT ONE (06:02)
[2021-04-24 06:21] LABS: WHITE BLOOD COUNT 28.9 X10^3/uL (3.6-10.0)
[2021-04-24 06:22] LABS: BAND NEUTROPHILS % 10 % (0-10); BURR CELLS PRESENT; PLATELET MORPHOLOGY COMMENT NORMAL (NORMAL)
[2021-04-24] MEDS: ACCUNEB 1.25 MG NEBULE NEB SCH ×3 (06:24→20:40)
[2021-04-24] MEDS ORDERED: DIPRIVAN VIAL 20 ML ONE (06:39)
[2021-04-24] MEDS ORDERED: QUELICIN (OR ANECTINE) ONE (06:39)
[2021-04-24] MEDS ORDERED: ZEMURON 50 MG VIAL ONE (06:40)
[2021-04-24] MEDS ORDERED: DIPRIVAN PREMIX 1 GRAM IV 1,000 MG/100 ML VIAL ONE (06:41)
--- NOTE | 2021-04-24 07:18 | RAD ---
HISTORYET tube placementSTUDYChest AP [id number]/22/2021FINDINGSTher e is an endotracheal tube in good position. Heart is mildly enlarged. Diffuse bilateral interstitial and ground-glass infiltrates are unchanged. No pneumothorax or pleural effusion is identified. Bony thorax is unremarkable.IMPRESSIONET tube in good positionMinimal cardiomegalyNo change diffuse bilateral interstitial and ground-glass infiltratesElectronically signed by: DEAN KNIGHT (Apr 24, 2021 07:15:26)
--- NOTE | 2021-04-24 07:22 | DR.UPDATE ---
H&P Update History and Physical Update: History and Physical reviewed and patient examined. Changes noted: NO Yes with the following: H&P Reviewed: Yes Patient was examined?: Yes Procedures (ALL) - Intubation Time out performed: Yes Sedative: other (propofol 100mg) paralytic: rocuronium (50mg) Laryngoscope: fiber optic video scope ET tube size: 7.5 Tube secured depth: 20 Tube secured location: lips Tube placement confirmation: visualized tube passing through cords, equal breath sounds bilaterally, no breath sounds over epigastrium, comfirmation by capnometer Patient tolerated procedure: Yes Intubation complications: none
[2021-04-24] MEDS: DOPAMINE IV PREMIX 400 MG/250 ML 400 MG/250 ML BAG IV PRN (07:36)
[2021-04-24 08:18] LABS: ABG BASE EXCESS -13.7 mmol/L (-2.0-2.0)
[2021-04-24 08:20] LABS: ABG ALLEN TEST POS; ABG HCO3 15.8 mmol/L (22-26)
[2021-04-24] MEDS: PULMICORT NEB TX 0.5 MG NEB SCH ×2 (08:45→20:40)
[2021-04-24] MEDS ORDERED: DIFLUCAN 100 MG IV (MIX by PHARMACY)* 100 MG/50 ML BAG IV SCH (09:00)
[2021-04-24] MEDS: DIPRIVAN PREMIX 1 GRAM IV 1,000 MG/100 ML VIAL IV PRN ×3 (09:34→22:52)
[2021-04-24] MEDS: ALBUMIN HUMAN 25%- 100 ML 100 ML IV SCH (09:35)
[2021-04-24] MEDS: LOVENOX INJ 30 MG SYR SC SCH (09:36)
[2021-04-24] MEDS: PROTONIX INJ 40 MG VIAL IVP SCH ×2 (09:37→21:12)
[2021-04-24] MEDS: THIAMINE HCL INJ IVP SCH ×2 (09:38→20:54)
[2021-04-24] MEDS: VITAMIN D3 125 mcg (5,000 UNITS) PO SCH (09:38)
[2021-04-24] MEDS: TIMOPTIC 0.5% EYE DROPS OP SCH (09:38)
[2021-04-24] MEDS: ZINC SULFATE PO SCH (09:39)
[2021-04-24] MEDS ORDERED: PEPCID 20 MG IV PREMIX* 20 MG/50 ML BAG IV SCH (10:00)
[2021-04-24] MEDS: NS 1/2 1000 ML IV 1,000 ML with SODIUM BICARBONATE 8.4% INJ ADULT 100 ML IV SCH ×4 (10:53→17:19)
[2021-04-24] MEDS: MERREM VIAL 500 MG in NS 50 ML IV + SPIKE MINIBAG* 50 ML IV SCH ×2 (11:22→20:10)
--- NOTE | 2021-04-24 14:18 | DR.PROGNOT ---
Hospital Progress Notes - Progress Note for Day of: Progress Note Date: 04/24/21 - Chief Complaint Chief Complaint: had to be intubated this am . poor urine output and BUN/Creat 80/4 - Past Medical Family Social History Past Med/Fam/Surg Hx: No changes since H&P Allergies: Allergies acetaminophen [From Darvocet-N] Allergy (Verified 04/03/20 09:40) aspirin Allergy (Verified 04/15/21 08:39) gelatin Allergy (Verified 03/24/21 17:34) oxycodone [From Percocet] Allergy (Verified 04/15/21 08:39) propoxyphene [From Darvocet-N] Allergy (Verified 04/03/20 09:40) - Review Of Systems ROS: No change since H&P - Vital Signs Vital Signs: Temperature 98.1 F Pulse Rate 85 Respiratory Rate 18 Blood Pressure [Right Arm] 122/58 Blood Pressure 104/53 O2 Sat by Pulse Oximetry 95 - Physical Exam Oriented: Normal, Not Oriented Eyes: Normal Ear: Normal Nose: Normal Throat: Normal Respiratory: Normal, Diminished Cardiovascular: Normal : Normal GI:Auscultation: Decreased GI:Palpation: Normal GI: Tenderness: RLQ (difficult to evaluate . ), LLQ, Other (diffuse tenderness with mild rebound .. BS hypo active .) Skin: Normal Musculoskeletal: Normal Psychiatric: Normal Mood Description: Flat Affect: Normal Speech Pattern: Appropriate - Laboratory and Diagnostics Result Diagrams: 04/24/21 05:00 04/24/21 05:00 Labs: 04/15/21 09:00 Blood Blood Culture - Final 04/15/21 09:00 Blood Blood Culture - Final Laboratory WBC 28.9 X10^3/uL (3.6-10.0) H D 04/24/21 05:00 RBC 3.81 X10^6/uL (3.5-5.4) 04/24/21 05:00 Hgb 11.4 g/dL (12.0-16.0) L 04/24/21 05:00 Hct 35.1 % (36.0-47.0) L 04/24/21 05:00 MCV 92.3 fL (80.0-100.0) 04/24/21 05:00 MCH 29.9 pg (27.0-34.0) 04/24/21 05:00 MCHC 32.4 g/dL (33.0-35.0) L 04/24/21 05:00 RDW 15.8 % (11.6-16.5) 04/24/21 05:00 Plt Count 148 X10^3/uL (150.0-450.0) L 04/24/21 05:00 Plt Count Comment Decreased (ADEQUATE) A 04/24/21 05:00 MPV 9.6 fL (7.4-11.0) 04/24/21 05:00 Neut % (Auto) 96.6 % (42.0-75.0) H 04/24/21 05:00 Lymph % (Auto) 1.3 % (21.0-51.0) L 04/24/21 05:00 [place] % (Auto) 2.0 % (0.0-13.0) 04/24/21 05:00 Eos % (Auto) 0.0 % (0.9-2.9) L 04/24/21 05:00 Baso % (Auto) 0.1 % (0.2-1.0) L 04/24/21 05:00 Neut # (Auto) 27.9 x10^3/uL (2.2-4.8) H 04/24/21 05:00 Lymph # (Auto) 0.4 X10^3/uL (1.3-2.9) L 04/24/21 05:00 [place] # (Auto) 0.6 x10^3/uL (0.3-0.8) 04/24/21 05:00 Eos # (Auto) 0.0 x10^3/uL (0.0-0.2) 04/24/21 05:00 Baso # (Auto) 0.0 X10^3/uL (0.0-0.1) 04/24/21 05:00 Absolute Nucleated RBC 0.0 /100WBC 04/24/21 05:00 Total Counted 100 04/24/21 05:00 Neutrophils % (Manual) 84 % (39-76) H 04/24/21 05:00 Band Neutrophils % 10 % (0-10) 04/24/21 05:00 Lymphocytes % (Manual) 3 % (13-43) L 04/24/21 05:00 Monocytes % (Manual) 3 % (4-9) L 04/24/21 05:00 Metamyelocytes % 4 04/18/21 04:59 Plt Morphology Comment Normal (NORMAL) 04/24/21 05:00 RBC Morphology Abnormal (NORMAL) A 04/24/21 05:00 [place] Cells Present 04/24/21 05:00 PT 14.3 SECONDS (11.8-14.3) 04/15/21 08:45 INR Target Range - 04/15/21 08:45 INR 1.17 (0.8-1.3) 04/15/21 08:45 APTT 33.7 SECONDS (22.9-36.5) 04/15/21 08:45 PTT Comment - 04/15/21 08:45 D-Dimer 1.81 ug/ml (0.0-0.57) H* 04/19/21 04:15 Sample Site Rr 04/24/21 08:13 ABG pH 7.100 (7.35-7.45) L* 04/24/21 08:13 ABG pCO2 51.0 mmHg (35.0-45.0) H* 04/24/21 08:13 ABG pO2 179.0 mmHg (80.0-100.0) H 04/24/21 08:13 ABG HCO3 15.8 mmol/L (22-26) L* 04/24/21 08:13 ABG O2 Saturation 99.0 % (90-100) 04/24/21 08:13 ABG Base Excess -13.7 mmol/L (-2.0-2.0) L 04/24/21 08:13 Jonathan Test Pos 04/24/21 08:13 A-a Gradient 470.0 mmHg 04/24/21 08:13 FiO2 100.0 04/24/21 08:13 Blood Gas Comments Estevan well cb 04/24/21 08:13 Sodium 142 mmol/L (136-145) 04/24/21 05:00 Corrected Sodium 143 mmol/L (136-145) 04/24/21 05:00 Potassium 6.6 mmol/L (3.5-5.1) H* 04/24/21 05:00 Chloride 107 mmol/L (98-107) 04/24/21 05:00 Carbon Dioxide 16.3 mmol/L (21-32) L 04/24/21 05:00 BUN 89 mg/dL (7-18) H 04/24/21 05:00 Creatinine 4.16 mg/dL (0.55-1.02) H 04/24/21 05:00 Est GFR (MDRD) Af Amer 13 (>60) L 04/24/21 05:00 Est GFR (MDRD) Non-Af 11 (>60) L 04/24/21 05:00 Glucose 138 mg/dL (65-99) H 04/24/21 05:00 POC Glucose (mg/dL) 155 mg/dL (65-99) H 04/17/21 15:19 Lactic Acid 1.7 mmol/L (0.4-2.0) 04/24/21 06:44 Calcium 6.2 mg/dL (8.5-10.1) L 04/24/21 05:00 Corrected Calcium 7.9 mg/dL (8.5-10.1) L 04/24/21 05:00 Magnesium 2.0 mg/dL (1.7-2.9) 04/22/21 04:45 Ferritin 1726 ng/mL (8-252) H 04/15/21 08:45 Total Bilirubin 3.80 mg/dL (0.2-1.0) H 04/24/21 05:00 AST 157 Units/L (15-37) H 04/24/21 05:00 ALT 26 Units/L (12-78) 04/24/21 05:00 Alkaline Phosphatase 97 Units/L (46-116) 04/24/21 05:00 Creatine Kinase 281 Units/L (26-192) H 04/22/21 04:45 CK-MB (CK-2) 2.9 ng/mL (0-4.0) 04/22/21 04:45 CK/CKMB % Calc 1.0 % (<4) 04/22/21 04:45 Troponin I 0.11 ng/mL (0-1.5) 04/22/21 04:45 C-Reactive Protein 301.70 mg/L (0-3.0) H 04/24/21 05:00 B-Natriuretic Peptide 464 pg/mL (0-79) H 04/21/21 04:53 Total Protein 5.7 g/dL (6.4-8.2) L 04/24/21 05:00 Albumin 1.9 g/dL (3.4-5.0) L 04/24/21 05:00 Globulin 3.8 g/dL (2.5-4.5) 04/24/21 05:00 Albumin/Globulin Ratio 0.5 Ratio (1.1-2.1) L 04/24/21 05:00 Amylase 223 Units/L (25-115) H 04/21/21 23:00 Lipase 542 Units/L (73-393) H 04/21/21 23:00 Specimen Type Catherized urine 04/23/21 09:11 Urine Color Yellow (YELLOW) 04/23/21 09:11 Urine Appearance Hazy (CLEAR) 04/23/21 09:11 Urine pH 5.0 (5.0 - 8.0) 04/23/21 09:11 Ur Specific [place] 1.025 (1.000-1.030) 04/23/21 09:11 Urine Protein 3+ (NEGATIVE) 04/23/21 09:11 Urine Glucose (UA) Negative (NEGATIVE) 04/23/21 09:11 Urine Ketones 1+ (NEGATIVE) 04/23/21 09:11 Urine Occult Blood 1+ (NEGATIVE) 04/23/21 09:11 Urine Nitrite Negative (NEGATIVE) 04/23/21 09:11 Urine Bilirubin Negative (NEGATIVE) 04/23/21 09:11 Urine Urobilinogen Normal (NORMAL) 04/23/21 09:11 Ur Leukocyte Esterase Negative (NEGATIVE) 04/23/21 09:11 Urine RBC 0-2 /HPF (0-3) 04/23/21 09:11 Urine WBC 0-2 /HPF (0-5) 04/23/21 09:11 Ur Squamous Epith Cells Rare /HPF (NEGATIVE) 04/23/21 09:11 Calcium Oxalate Crystal Few /HPF (NEGATIVE) 04/23/21 09:11 Amorphous Sediment 1+ /HPF (NEGATIVE) 04/23/21 09:11 Urine Bacteria Negative /HPF (NEGATIVE) 04/23/21 09:11 Granular Casts Rare /LPF (NEGATIVE) 04/23/21 09:11 Ur Culture Indicated? No/not indicated 04/23/21 09:11 SARS-CoV-2 (PCR) Positive (NEGATIVE) A 04/15/21 08:44 Influenza Type A (PCR) Negative (NEGATIVE) 04/15/21 08:44 Influenza Type B (PCR) Negative (NEGATIVE) 04/15/21 08:44 RSV (PCR) Negative (NEGATIVE) 04/15/21 08:44 SARS CoV-2 RNA Rapid LILLI Positive (NEGATIVE) A 04/24/21 12:54 - Assessment and Plan 1: sealed perforated bowel ( Covid ischemia ). Covid pneumonia . acute renal failure. EKG changes with ischemia. recent small bowel resection for isolated perforated small bowel . ( no malignancy , IBD , or ischemia ). to have abdominal CT with oral contrast to check for perforation before transferring Pt as requested by the surgeon .. - Problem Patient Problems: Patient Problems Nausea & vomiting (Acute) R11.2 COVID-19 (Acute) U07.1 Azotemia (Acute) R79.89 Hypoxemia (Acute) R09.02 Pneumonia due to COVID-19 virus (Acute) U07.1, J12.82 Hypoxia (Acute) R09.02 Perforated abdominal viscus (Acute) R19.8
--- NOTE | 2021-04-24 15:23 | RAD ---
KUBHISTORY: OG TUBE PLACEMENTStudy: Single view of the abdomen.Comparison:NoneFindings:There is a gastric tube terminating within the stomach.Bowel gas pattern is normal.IMPRESSION:1. Gastric tube terminating within the stomach.Electronically signed by: MANE PIÑA (Apr 24, 2021 15:22:07)
[2021-04-24] MEDS: XALATAN OP SCH (20:10)
[2021-04-24] MEDS ORDERED: NS 50 ML IV 50 ML IV ONE (20:47)
--- NOTE | 2021-04-24 22:24 | CT ---
EXAM: CT ABDOMEN AND PELVIS WITHOUT INTRAVENOUS CONTRASTHISTORY: Pain. Rule out perforation.TECHNIQUE: Spiral axial CT images are obtained through the abdomen and pelvis with the administration of oral contrast and without the administration of intravenous contrast. Additional coronal and sagittal reformatted images are reconstructed.DOSIMETRY: Total DLP 1188.3 mGycm; CTDI 21.5 mGyCOMPARISON: CT abdomen and pelvis dated April 21, 2021.FINDINGS:ABDOMINAL AND PELVIC WALL AND the PERITONEAL CAVITY: There is a small amount of free intraperitoneal air within the anterior midline upper abdomen (significantly improved compared with the previous exam) which may represent sequela of viscus microperforation (in the absence of recent abdominal or pelvic invasive procedure) in the appropriate clinical setting. Clinical correlation is advised. There is a moderate amount of intra-abdominal and intrapelvic complex appearing, mildly hyperdense, ascites, with significant interval progression compared with the previous exam; DDx includes mildly hemorrhagic or superinfected ascites. Diffuse subcutaneous soft tissue edema which may represent anasarca; rule out third spacing secondary to hypoalbuminemia or hypervolemia.GASTROINTESTINAL TRACT: Oral contrast material is seen within the stomach, some small bowel loops and right and transverse colon large bowel loops, without gross evidence for contrast extravasation. There is mildly thickened appearance of the distal gastric mucosa and duodenal sweep, with periduodenal stranding which may represent gastroduodenitis in the appropriate clinical setting. Diffuse circumfrential thickening of the large bowel loops consistent with pancolitis; DDX includes ulcerative colitis and pseudomembranous colitis. Clinical correlation is advised. There is diffuse colonic diverticulosis, especially severe in the descending colon and sigmoid regions, without CT evidence for acute diverticulitis. No evidence for bowel herniation, bowel obstruction, or appendicitis is seen.GENITOURINARY SYSTEM: The kidneys are unremarkable. There is no ureteral calculus or stigmata of obstructive uropathy. A Levine balloon catheter is seen within a collapsed urinary bladder.CT ABDOMEN: The liver, spleen, pancreas, adrenal glands, gallbladder, aorta, and inferior vena cava are within normal limits for a noncontrast CT scan. There is no intra-abdominal or retroperitoneal lymphadenopathy, free fluid, or free air seen. No abdominal herniation is noted.CT PELVIS: The visualized bony structures are within normal limits. No pelvic sidewall or inguinal lymphadenopathy is seen. No inguinal herniation is noted. No free fluid or free air is seen.LUNG BASES: Stable appearance of severe diffuse bilateral lung infiltrates which may represent cardiogenic or noncardiogenic pulmonary edema and/or interstitial pneumonia in the appropriate clinical setting. There are extensive subpleural consolidative changes seen within the posterior lower lobes, right greater than left, with air bronchograms, with significant interval progression of changes compared with the previous exam in keeping with acute lobar pneumonia in the appropriate clinical setting.IMPRESSION:1. Small amount of free intraperitoneal air within the anterior midline upper abdomen (significantly improved compared with the previous exam) which may represent sequela of viscus microperforation (in the absence of recent abdominal or pelvic invasive procedure) in the appropriate clinical setting. Clinical correlation is advised.2. Moderate amount of intra-abdominal and intrapelvic complex appearing, mildly hyperdense, ascites, with significant interval progression compared with the previous exam; DDx includes mildly hemorrhagic or superinfected ascites.3. Oral contrast material is seen within the stomach, some small bowel loops and right and transverse colon large bowel loops, without gross evidence for contrast extravasation.4. Mildly thickened appearance of the distal gastric mucosa and duodenal sweep, with periduodenal stranding which may represent gastroduodenitis in the appropriate clinical setting.5. Diffuse circumfrential thickening of the large bowel loops consistent with pancolitis; DDX includes ulcerative colitis and pseudomembranous colitis. Clinical correlation is advised.6. Diffuse colonic diverticulosis, especially severe in the descending colon and sigmoid regions, without CT evidence for acute diverticulitis.7. No evidence for bowel herniation, bowel obstruction, or appendicitis is seen.8. No evidence for renal stone disease or obstructive uropathy.9. Diffuse subcutaneous soft tissue edema which may represent anasarca; rule out third spacing secondary to hypoalbuminemia or hypervolemia.10. Stable appearance of severe diffuse bilateral lung infiltrates which may represent cardiogenic or noncardiogenic pulmonary edema and/or interstitial pneumonia in the appropriate clinical setting.11. Extensive subpleural consolidative changes seen within the posterior lower lobes, right greater than left, with air bronchograms, with significant interval progression of changes compared with the previous exam in keeping with acute lobar pneumonia in the appropriate clinical setting.Electronically signed by: Santino Akbar (Apr 24, 2021 22:22:05)
[2021-04-24] MEDS: LIPITOR TAB 80 MG PO SCH (22:48)
[2021-04-25] MEDS ORDERED: SODIUM BICARBONATE 8.4% INJ ADULT ONE (00:33)
[2021-04-25] MEDS: NS 1/2 1000 ML IV 1,000 ML with SODIUM BICARBONATE 8.4% INJ ADULT 100 ML IV SCH ×2 (01:06)
[2021-04-25] MEDS: SOLU-Medrol 40 MG VIAL IVP SCH (04:00)
[2021-04-25] MEDS: ASCORBIC ACID INJ MULTI-DOSE VIAL 1,500 MG in NS 50 ML IV 50 ML IV SCH (04:00)
[2021-04-25 05:28] VITALS: BP 112/57
[2021-04-25 05:35] LABS: ABG ALLEN TEST POS; ABG BASE EXCESS -7.1 mmol/L (-2.0-2.0); ABG HCO3 20.5 mmol/L (22-26)
[2021-04-25 06:11] LABS: BASOPHILS # (AUTO) 0.1 X10^3/uL (0.0-0.1); BASOPHILS % (AUTO) 0.3 % (0.2-1.0); HEMATOCRIT 27.2 % (36.0-47.0); HEMOGLOBIN 9.2 g/dL (12.0-16.0); LYMPHOCYTES # (AUTO) 0.3 X10^3/uL (1.3-2.9); LYMPHOCYTES % (AUTO) 1.5 % (21.0-51.0); MEAN CORPUSCULAR HEMOGLOBIN 30.4 pg (27.0-34.0); MEAN CORPUSCULAR HGB CONC 33.9 g/dL (33.0-35.0); MEAN CORPUSCULAR VOLUME 89.9 fL (80.0-100.0); MEAN PLATELET VOLUME 9.5 fL (7.4-11.0); MONOCYTES # (AUTO) 0.4 x10^3/uL (0.3-0.8); MONOCYTES % (AUTO) 2.2 % (0.0-13.0); NEUTROPHILS # (AUTO) 18.7 x10^3/uL (2.2-4.8); PLATELET COUNT 85 X10^3/uL (150.0-450.0); RED BLOOD COUNT 3.02 X10^6/uL (3.5-5.4); RED CELL DISTRIBUTION WIDTH 15.4 % (11.6-16.5); WHITE BLOOD COUNT 19.5 X10^3/uL (3.6-10.0)
[2021-04-25 06:28] LABS: ALBUMIN 1.7 g/dL (3.4-5.0); CARBON DIOXIDE 21.9 mmol/L (21-32); COR CA(FOR HYPOALB) 7.2 mg/dL (8.5-10.1); CREATININE 4.71 mg/dL (0.55-1.02); TOTAL PROTEIN 4.7 g/dL (6.4-8.2)
[2021-04-25 06:35] LABS: CALCIUM 5.4 mg/dL (8.5-10.1)
[2021-04-25 06:58] LABS: BAND NEUTROPHILS % 5 % (0-10); BURR CELLS PRESENT; PLATELET MORPHOLOGY COMMENT NORMAL (NORMAL)
== END 2021-04-25 06:40 | disposition short-term general hospital (02) | DRG 177 ==
LOC: ER 08:20 → ICU 11:04
PROVIDERS: ADMIT Internal Medicine; ATTEND Internal Medicine
DX: K57.90 Diverticulosis of intestine, part unspecified, without perforation or abscess without bleeding; K82.9 Disease of gallbladder, unspecified; Z98.0 Intestinal bypass and anastomosis status; I10 Essential (primary) hypertension; R00.0 Tachycardia, unspecified; F41.9 Anxiety disorder, unspecified; K55.1 Chronic vascular disorders of intestine; R09.02 Hypoxemia; I95.9 Hypotension, unspecified; R26.81 Unsteadiness on feet; I87.2 Venous insufficiency (chronic) (peripheral); K63.1 Perforation of intestine (nontraumatic); N17.9 Acute kidney failure, unspecified; R41.82 Altered mental status, unspecified; R10.9 Unspecified abdominal pain; E87.6 Hypokalemia; R79.89 Other specified abnormal findings of blood chemistry; J90 Pleural effusion, not elsewhere classified; R06.02 Shortness of breath; K52.9 Noninfective gastroenteritis and colitis, unspecified; J12.81 Pneumonia due to SARS-associated coronavirus; U07.1 COVID-19; I30.9 Acute pericarditis, unspecified; E86.0 Dehydration